=== PATIENT | female | born 1965 | race Caucasian/White ===

== ENCOUNTER 2020-04-24 09:56 | Outpatient (REF) | payer OTHER, SELFPAY ==
[2020-04-24 10:40] LABS: MANUAL DIFF FLAG NO
[2020-04-24 10:56] LABS: Basophils Percent Auto 0.3 % (0-2); Eosinophils Absolute Auto 0.1 X10*3/uL (0.0-0.4); Eosinophils Percent Auto 1.7 % (0-4); Hematocrit 48.4 % (37-47); Hemoglobin 16.1 g/dl (12.0-16.0); Imm Gran Abs Auto 0.01 X10*3/uL (0.00-0.03); Imm Gran Pct Auto 0.2 % (0.0-0.4); Lymphocytes Absolute Auto 1.4 X10*3/uL (1.2-4.9); Lymphocytes Percent Auto 23.5 % (20-40); Mean Corpuscular HGB Conc 33.3 g/dl (31.0-35.0); Mean Corpuscular Hemoglobin 33.1 pg (27.0-33.0); Mean Corpuscular Volume 99.4 fL (80-98); Mean Platelet Volume 9.7 fL (9.4-12.3); Monocytes Absolute Auto 0.8 X10*3/uL (0.1-1.2); Monocytes Percent Auto 12.5 % (2-11); Neutrophils Absolute Auto 3.7 X10*3/uL (2.0-8.3); Neutrophils Percent Auto 61.8 % (45-73); Platelet Count 356 X10*3/uL (160-400); Red Blood Count 4.87 X10*6/uL (4.20-5.50); Red Cell Distribution Width 14.1 % (11.0-16.0)
[2020-04-24 11:00] LABS: Alanine Aminotransferase 17 U/L (0-31); Albumin Level 4.5 g/dL (3.5-5.0); Alkaline Phosphatase 88 U/L (39-117); Anion Gap 12 (12-20); Aspartate Amino Transferase 19 U/L (5-31); Bilirubin Total 0.5 mg/dL (0.0-1.0); Blood Urea Nitrogen 12 mg/dL (9-16); Calcium 9.7 mg/dL (8.4-10.2); Carbon Dioxide 26 mmol/L (22-29); Chloride 105 mmol/L (96-108); Cholesterol 257 mg/dL; Estimated Glomerular Filt Rate > 60; Glucose Fasting 101 mg/dL (60-99); HDL Cholesterol 67 mg/dL; LDL Cholesterol Calculated 167 mg/dl; Potassium 4.7 mmol/l (3.3-5.1); Sodium 138 mmol/L (135-145); Total Protein 7.5 g/dL (6.5-8.0); Triglycerides 116 mg/dL
[2020-04-24 11:03] LABS: Glucose Urine UA NEG (NEG); Leukocyte Esterase Urine NEG (NEG); Nitrite Urine NEG (NEG); Urine Blood NEG (NEG); Urine Ketones NEG (NEG); Urine Protein NEG (NEG-TRACE)
[2020-04-24 11:10] LABS: Appearance Urine CLEAR; Color Urine YELLOW
[2020-04-24 11:25] LABS: Free T4 (Free Thyroxine) 1.16 ng/dL (0.71-1.85); Thyroid Stimulating Hormone 0.41 mIU/mL (0.32-4.0); Vitamin D 25-OH Total 38.4 ng/mL (>30)
[2020-04-24 11:41] LABS: Bacteria Urine 1+ /LPF; Mucus Urine 1+ /LPF; RBC Urine 0 /HPF (0); Squamous Epithelial Cell Urine 1+ /LPF; WBC Urine 0 /HPF (0-4)
[2020-04-24 12:23] LABS: Erythrocyte Sedimentation Rate 5 MM/HR (0-20)
[2020-04-26 09:42] LABS: Folate > 20.0 ng/mL (> or = 4.0); Vitamin B12 434 pg/mL (200-900)
== END 2020-04-24 09:57 | disposition home or self-care (01) ==
LOC: HO.LAB 09:56
PROVIDERS: PCP Internal Medicine; Visit Provider Internal Medicine
DX: I10 Essential (primary) hypertension (principal); E78.00 Pure hypercholesterolemia, unspecified; E03.9 Hypothyroidism, unspecified; E53.8 Deficiency of other specified B group vitamins; I73.00 Raynaud's syndrome without gangrene; R76.8 Other specified abnormal immunological findings in serum; E55.9 Vitamin D deficiency, unspecified; F17.200 Nicotine dependence, unspecified, uncomplicated
CPT/HCPCS: 36415; 80053; 80061; 81001; 81003; 82306; 82607; 82746; 84439; 84443; 85025; 85652

== ENCOUNTER 2020-09-25 09:04 | Outpatient (REF) | payer OTHER, SELFPAY ==
[2020-09-25 09:59] LABS: MANUAL DIFF FLAG NO
[2020-09-25 10:23] LABS: Basophils Percent Auto 0.1 % (0-2); Eosinophils Absolute Auto 0.1 X10*3/uL (0.0-0.4); Eosinophils Percent Auto 1.3 % (0-4); Hematocrit 46.2 % (37-47); Hemoglobin 15.1 g/dl (12.0-16.0); Imm Gran Abs Auto 0.01 X10*3/uL (0.00-0.03); Imm Gran Pct Auto 0.1 % (0.0-0.4); Lymphocytes Absolute Auto 1.4 X10*3/uL (1.2-4.9); Lymphocytes Percent Auto 17.9 % (20-40); Mean Corpuscular HGB Conc 32.7 g/dl (31.0-35.0); Mean Corpuscular Hemoglobin 32.4 pg (27.0-33.0); Mean Corpuscular Volume 99.1 fL (80-98); Mean Platelet Volume 9.6 fL (9.4-12.3); Monocytes Absolute Auto 0.9 X10*3/uL (0.1-1.2); Monocytes Percent Auto 11.4 % (2-11); Neutrophils Absolute Auto 5.4 X10*3/uL (2.0-8.3); Neutrophils Percent Auto 69.2 % (45-73); Platelet Count 347 X10*3/uL (160-400); Red Blood Count 4.66 X10*6/uL (4.20-5.50); Red Cell Distribution Width 14.2 % (11.0-16.0); White Blood Count 7.8 X10*3/uL (4.8-10.8)
[2020-09-25 10:53] LABS: Alanine Aminotransferase 18 U/L (0-31); Albumin Level 4.5 g/dL (3.5-5.0); Alkaline Phosphatase 104 U/L (39-117); Anion Gap 12 (12-20); Aspartate Amino Transferase 19 U/L (5-31); Bilirubin Total 0.4 mg/dL (0.0-1.0); Blood Urea Nitrogen 14 mg/dL (9-16); Calcium 9.5 mg/dL (8.4-10.2); Carbon Dioxide 28 mmol/L (22-29); Chloride 104 mmol/L (96-108); Cholesterol 253 mg/dL; Estimated Glomerular Filt Rate > 60; Glucose Fasting 96 mg/dL (60-99); HDL Cholesterol 75 mg/dL; LDL Cholesterol Calculated 165 mg/dl; Potassium 4.5 mmol/L (3.3-5.1); Sodium 139 mmol/L (135-145); Total Protein 7.7 g/dL (6.5-8.0); Triglycerides 66 mg/dL
[2020-09-25 11:11] LABS: Erythrocyte Sedimentation Rate 6 MM/HR (0-20)
[2020-09-27 05:07] LABS: Folate > 20.0 ng/mL (> or = 4.0); Vitamin B12 615 pg/mL (200-900)
== END 2020-09-25 09:05 | disposition home or self-care (01) ==
LOC: HO.LAB 09:04
PROVIDERS: Visit Provider Internal Medicine
DX: E78.5 Hyperlipidemia, unspecified (principal); E11.9 Type 2 diabetes mellitus without complications; I10 Essential (primary) hypertension; I73.00 Raynaud's syndrome without gangrene; E53.8 Deficiency of other specified B group vitamins; E55.9 Vitamin D deficiency, unspecified
CPT/HCPCS: 36415; 80053; 80061; 82306; 82607; 82746; 84443; 85025; 85652

== ENCOUNTER 2021-01-29 09:27 | Outpatient (REF) | payer OTHER, SELFPAY ==
[2021-01-29 10:24] LABS: MANUAL DIFF FLAG NO
[2021-01-29 10:25] LABS: Basophils Percent Auto 0.1 % (0-2); Eosinophils Absolute Auto 0.1 X10*3/uL (0.0-0.4); Eosinophils Percent Auto 1.3 % (0-4); Hematocrit 45.6 % (37-47); Hemoglobin 15.3 g/dl (12.0-16.0); Imm Gran Abs Auto 0.02 X10*3/uL (0.00-0.03); Imm Gran Pct Auto 0.3 % (0.0-0.4); Lymphocytes Absolute Auto 1.5 X10*3/uL (1.2-4.9); Lymphocytes Percent Auto 21.2 % (20-40); Mean Corpuscular HGB Conc 33.6 g/dl (31.0-35.0); Mean Corpuscular Hemoglobin 32.8 pg (27.0-33.0); Mean Corpuscular Volume 97.9 fL (80-98); Mean Platelet Volume 9.6 fL (9.4-12.3); Monocytes Absolute Auto 0.8 X10*3/uL (0.1-1.2); Monocytes Percent Auto 11.9 % (2-11); Neutrophils Absolute Auto 4.6 X10*3/uL (2.0-8.3); Neutrophils Percent Auto 65.2 % (45-73); Platelet Count 353 X10*3/uL (160-400); Red Blood Count 4.66 X10*6/uL (4.20-5.50); Red Cell Distribution Width 14.5 % (11.0-16.0); White Blood Count 7.1 X10*3/uL (4.8-10.8)
[2021-01-29 10:48] LABS: Alanine Aminotransferase 20 U/L (0-31); Albumin Level 4.5 g/dL (3.5-5.0); Alkaline Phosphatase 102 U/L (39-117); Anion Gap 16 (12-20); Aspartate Amino Transferase 21 U/L (5-31); Bilirubin Total 0.6 mg/dL (0.0-1.0); Blood Urea Nitrogen 9 mg/dL (9-16); Calcium 10.1 mg/dL (8.4-10.2); Carbon Dioxide 26 mmol/L (22-29); Chloride 104 mmol/L (96-108); Cholesterol 249 mg/dL; Estimated Glomerular Filt Rate > 60; Glucose Fasting 96 mg/dL (60-99); HDL Cholesterol 66 mg/dL; LDL Cholesterol Calculated 165 mg/dl; Potassium 4.9 mmol/L (3.3-5.1); Sodium 141 mmol/L (135-145); Total Protein 7.7 g/dL (6.5-8.0); Triglycerides 91 mg/dL
[2021-01-29 11:10] LABS: Free T4 (Free Thyroxine) 1.02 ng/dL (0.71-1.85)
== END 2021-01-29 09:28 | disposition home or self-care (01) ==
LOC: HO.LAB 09:27
PROVIDERS: PCP Internal Medicine; Visit Provider Internal Medicine
DX: E53.8 Deficiency of other specified B group vitamins (principal); I10 Essential (primary) hypertension; E78.00 Pure hypercholesterolemia, unspecified; I73.00 Raynaud's syndrome without gangrene; E03.9 Hypothyroidism, unspecified
CPT/HCPCS: 36415; 80053; 80061; 84439; 84443; 85025

== ENCOUNTER 2021-06-18 09:31 | Outpatient (REF) | payer OTHER, SELFPAY ==
[2021-06-18 09:52] LABS: MANUAL DIFF FLAG NO
[2021-06-18 10:35] LABS: Basophils Percent Auto 0.1 % (0-2); Eosinophils Absolute Auto 0.1 X10*3/uL (0.0-0.4); Eosinophils Percent Auto 1.3 % (0-4); Hematocrit 46.8 % (37.0-47.0); Hemoglobin 15.7 g/dl (12.0-16.0); Imm Gran Abs Auto 0.02 X10*3/uL (0.00-0.03); Imm Gran Pct Auto 0.3 % (0.0-0.4); Lymphocytes Absolute Auto 1.4 X10*3/uL (1.2-4.9); Lymphocytes Percent Auto 17.9 % (20-40); Mean Corpuscular HGB Conc 33.5 g/dl (31.0-35.0); Mean Corpuscular Hemoglobin 32.9 pg (27.0-33.0); Mean Corpuscular Volume 98.1 fL (80.0-98.0); Mean Platelet Volume 9.7 fL (9.4-12.3); Monocytes Absolute Auto 0.9 X10*3/uL (0.1-1.2); Monocytes Percent Auto 11.1 % (2-11); Neutrophils Absolute Auto 5.3 x10*3/uL (2.0-8.3); Neutrophils Percent Auto 69.3 % (45-73); Platelet Count 375 X10*3/uL (160-400); Red Blood Count 4.77 X10*6/uL (4.20-5.50); Red Cell Distribution Width 14.2 % (11.0-16.0); White Blood Count 7.7 X10*3/uL (4.8-10.8)
[2021-06-18 10:41] LABS: Appearance Urine HAZY; Color Urine YELLOW; Glucose Urine UA NEG (NEG); Leukocyte Esterase Urine 1+ (NEG); Nitrite Urine NEG (NEG); UACC Culture Trigger YES; Urine Blood NEG (NEG); Urine Ketones NEG (NEG); Urine Protein NEG (NEG-TRACE)
[2021-06-18 10:52] LABS: Mucus Urine 3+ /LPF; Squamous Epithelial Cell Urine 2+ /LPF
[2021-06-18 10:53] LABS: Bacteria Urine 2+ /LPF; RBC Urine 0 /HPF (0)
[2021-06-18 10:55] LABS: Alanine Aminotransferase 21 U/L (0-31); Albumin Level 4.4 g/dL (3.5-5.0); Alkaline Phosphatase 107 U/L (39-117); Anion Gap 13 (12-20); Aspartate Amino Transferase 22 U/L (5-31); Bilirubin Total 0.6 mg/dL (0.0-1.0); Blood Urea Nitrogen 10 mg/dL (9-16); Calcium 9.8 mg/dL (8.4-10.2); Carbon Dioxide 26 mmol/L (22-29); Chloride 104 mmol/L (96-108); Cholesterol 254 mg/dL; Estimated Glomerular Filt Rate > 60; Glucose Fasting 101 mg/dL (60-99); HDL Cholesterol 64 mg/dL; LDL Cholesterol Calculated 163 mg/dl; Potassium 4.3 mmol/L (3.3-5.1); Sodium 139 mmol/L (135-145); Total Protein 7.5 g/dL (6.5-8.0); Triglycerides 139 mg/dL
[2021-06-18 11:19] LABS: Free T4 (Free Thyroxine) 1.04 ng/dL (0.71-1.85); Thyroid Stimulating Hormone 0.91 uIU/mL (0.32-4.0); Vitamin D 25-OH Total 36.7 ng/mL (>30)
[2021-06-20 09:01] LABS: Folate > 20.0 ng/mL (> or = 4.0); Vitamin B12 781 pg/mL (200-900)
== END 2021-06-18 09:32 | disposition home or self-care (01) ==
LOC: HO.LAB 09:31
PROVIDERS: PCP Internal Medicine; Visit Provider Internal Medicine
DX: E53.8 Deficiency of other specified B group vitamins (principal); E78.00 Pure hypercholesterolemia, unspecified; I10 Essential (primary) hypertension; E03.9 Hypothyroidism, unspecified; E55.9 Vitamin D deficiency, unspecified; F17.200 Nicotine dependence, unspecified, uncomplicated; I73.00 Raynaud's syndrome without gangrene
CPT/HCPCS: 36415; 80053; 80061; 81001; 82306; 82607; 82746; 84439; 84443; 85025; 87086

== ENCOUNTER 2021-11-05 09:32 | Outpatient (REF) | payer OTHER, SELFPAY ==
[2021-11-05 09:40] LABS: MANUAL DIFF FLAG NO
[2021-11-05 10:04] LABS: Basophils Percent Auto 0.3 % (0-2); Eosinophils Absolute Auto 0.1 X10*3/uL (0.0-0.4); Eosinophils Percent Auto 1.9 % (0-4); Hematocrit 46.7 % (37.0-47.0); Hemoglobin 15.7 g/dl (12.0-16.0); Imm Gran Abs Auto 0.01 X10*3/uL (0.00-0.03); Imm Gran Pct Auto 0.1 % (0.0-0.4); Lymphocytes Absolute Auto 1.8 X10*3/uL (1.2-4.9); Lymphocytes Percent Auto 26.5 % (20-40); Mean Corpuscular HGB Conc 33.6 g/dl (31.0-35.0); Mean Corpuscular Hemoglobin 32.6 pg (27.0-33.0); Mean Corpuscular Volume 96.9 fL (80.0-98.0); Mean Platelet Volume 9.3 fL (9.4-12.3); Monocytes Percent Auto 13.7 % (2-11); Neutrophils Percent Auto 57.5 % (45-73); Platelet Count 408 X10*3/uL (160-400); Red Blood Count 4.82 X10*6/uL (4.20-5.50); White Blood Count 6.9 X10*3/uL (4.8-10.8)
[2021-11-05 10:19] LABS: Alanine Aminotransferase 19 U/L (0-31); Albumin Level 4.3 g/dL (3.5-5.0); Alkaline Phosphatase 102 U/L (39-117); Anion Gap 17 (12-20); Aspartate Amino Transferase 19 U/L (5-31); Bilirubin Total 0.7 mg/dL (0.0-1.0); Blood Urea Nitrogen 10 mg/dL (9-16); Calcium 10.1 mg/dL (8.4-10.2); Carbon Dioxide 25 mmol/L (22-29); Chloride 103 mmol/L (96-108); Cholesterol 262 mg/dL; Estimated Glomerular Filt Rate > 60; Glucose Fasting 101 mg/dL (60-99); HDL Cholesterol 64 mg/dL; LDL Cholesterol Calculated 169 mg/dl; Potassium 4.8 mmol/L (3.3-5.1); Sodium 140 mmol/L (135-145); Total Protein 7.5 g/dL (6.5-8.0); Triglycerides 149 mg/dL
[2021-11-05 10:43] LABS: TSH reflex Free T4 0.51 uIU/mL (0.32-4.0)
[2021-11-05 11:16] LABS: Appearance Urine HAZY; Color Urine YELLOW; Glucose Urine UA NEG (NEG); Leukocyte Esterase Urine 1+ (NEG); Nitrite Urine NEG (NEG); PH 5.5 (5.0-8.0); Specific Gravity - Urine 1.025 (1.005-1.025); Urine Blood NEG (NEG); Urine Ketones NEG (NEG); Urine Protein NEG (NEG-TRACE)
[2021-11-05 11:28] LABS: RBC Urine 0-2 /HPF (0)
[2021-11-05 11:29] LABS: Bacteria Urine 2+ /LPF; Squamous Epithelial Cell Urine 1+ /LPF
== END 2021-11-05 09:33 | disposition home or self-care (01) ==
LOC: HO.LAB 09:32
PROVIDERS: PCP Internal Medicine; Visit Provider Internal Medicine
DX: E78.00 Pure hypercholesterolemia, unspecified (principal); I10 Essential (primary) hypertension
CPT/HCPCS: 36415; 80053; 80061; 81001; 82550; 84443; 85025

== ENCOUNTER 2022-03-18 09:20 | Outpatient (REF) | payer OTHER, SELFPAY ==
[2022-03-18 09:35] LABS: MANUAL DIFF FLAG NO
[2022-03-18 10:00] LABS: Basophils Percent Auto 0.1 % (0-2); Eosinophils Absolute Auto 0.2 X10*3/uL (0.0-0.4); Hematocrit 47.1 % (37.0-47.0); Hemoglobin 15.9 g/dl (12.0-16.0); Imm Gran Abs Auto 0.03 X10*3/uL (0.00-0.03); Imm Gran Pct Auto 0.3 % (0.0-0.4); Lymphocytes Absolute Auto 1.4 X10*3/uL (1.2-4.9); Lymphocytes Percent Auto 16.6 % (20-40); Mean Corpuscular HGB Conc 33.8 g/dl (31.0-35.0); Mean Corpuscular Hemoglobin 32.9 pg (27.0-33.0); Mean Corpuscular Volume 97.5 fL (80.0-98.0); Mean Platelet Volume 9.3 fL (9.4-12.3); Monocytes Absolute Auto 0.8 X10*3/uL (0.1-1.2); Monocytes Percent Auto 9.3 % (2-11); Neutrophils Absolute Auto 6.2 x10*3/uL (2.0-8.3); Neutrophils Percent Auto 71.7 % (45-73); Platelet Count 353 X10*3/uL (160-400); Red Blood Count 4.83 X10*6/uL (4.20-5.50); Red Cell Distribution Width 14.3 % (11.0-16.0); White Blood Count 8.6 X10*3/uL (4.8-10.8)
[2022-03-18 10:25] LABS: Alanine Aminotransferase 27 U/L (0-31); Albumin Level 4.7 g/dL (3.5-5.0); Alkaline Phosphatase 107 U/L (39-117); Anion Gap 17 (12-20); Aspartate Amino Transferase 28 U/L (5-31); Bilirubin Total 0.9 mg/dL (0.0-1.0); Blood Urea Nitrogen 10 mg/dL (9-16); Calcium 9.9 mg/dL (8.4-10.2); Carbon Dioxide 26 mmol/L (22-29); Chloride 102 mmol/L (96-108); Cholesterol 224 mg/dL; Estimated Glomerular Filt Rate > 60; Glucose Fasting 103 mg/dL (60-99); HDL Cholesterol 78 mg/dL; LDL Cholesterol Calculated 115 mg/dl; Potassium 4.1 mmol/L (3.3-5.1); Sodium 141 mmol/L (135-145); Total Protein 8.1 g/dL (6.5-8.0); Triglycerides 159 mg/dL
[2022-03-18 10:48] LABS: Free T4 (Free Thyroxine) 1.15 ng/dL (0.71-1.85); Thyroid Stimulating Hormone 0.57 uIU/mL (0.32-4.0)
[2022-03-18 11:08] LABS: Appearance Urine Clear; Color Urine Dark Yellow; Glucose Urine UA Negative (Negative); Leukocyte Esterase Urine Moderate (2+) (Negative); Nitrite Urine Negative (Negative); PH 6.5 (5.0-8.0); Specific Gravity - Urine 1.015 (1.005-1.025); Urine Blood Negative (Negative); Urine Ketones Negative (Negative); Urine Protein Negative (Neg-Trace)
[2022-03-18 11:22] LABS: Bacteria Urine Trace (None Seen); Hyaline Casts Urine 0-2 /LPF (0-2); RBC Urine 0-2 /HPF (0-2); WBC Urine 0-5 /HPF (0-5)
== END 2022-03-18 09:21 | disposition home or self-care (01) ==
LOC: HO.LAB 09:20
PROVIDERS: PCP Internal Medicine; Visit Provider Internal Medicine
DX: E03.9 Hypothyroidism, unspecified (principal); E78.00 Pure hypercholesterolemia, unspecified; I10 Essential (primary) hypertension
CPT/HCPCS: 36415; 80053; 80061; 81001; 81003; 84439; 84443; 85025

== ENCOUNTER 2022-06-24 09:38 | Outpatient (REF) | payer OTHER, SELFPAY ==
[2022-06-24 09:51] LABS: MANUAL DIFF FLAG NO
[2022-06-24 10:27] LABS: Basophils Percent Auto 0.2 % (0-2); Eosinophils Absolute Auto 0.1 X10*3/uL (0.0-0.4); Eosinophils Percent Auto 1.7 % (0-4); Hematocrit 44.3 % (37.0-47.0); Hemoglobin 14.9 g/dl (12.0-16.0); Imm Gran Abs Auto 0.02 X10*3/uL (0.00-0.03); Imm Gran Pct Auto 0.2 % (0.0-0.4); Lymphocytes Absolute Auto 1.8 X10*3/uL (1.2-4.9); Lymphocytes Percent Auto 21.5 % (20-40); Mean Corpuscular HGB Conc 33.6 g/dl (31.0-35.0); Mean Corpuscular Hemoglobin 32.9 pg (27.0-33.0); Mean Corpuscular Volume 97.8 fL (80.0-98.0); Mean Platelet Volume 9.4 fL (9.4-12.3); Monocytes Percent Auto 11.8 % (2-11); Neutrophils Absolute Auto 5.3 x10*3/uL (2.0-8.3); Neutrophils Percent Auto 64.6 % (45-73); Platelet Count 353 X10*3/uL (160-400); Red Blood Count 4.53 X10*6/uL (4.20-5.50); Red Cell Distribution Width 14.4 % (11.0-16.0); White Blood Count 8.2 X10*3/uL (4.8-10.8)
[2022-06-24 10:37] LABS: Appearance Urine Clear; Color Urine Yellow; Glucose Urine UA Negative (Negative); Leukocyte Esterase Urine Moderate (2+) (Negative); Nitrite Urine Negative (Negative); PH 5.5 (5.0-9.0); UMIC TRIGGER UACC YES; Urine Blood Negative (Negative); Urine Ketones Negative (Negative); Urine Protein Negative (Neg-Trace)
[2022-06-24 10:39] LABS: Bacteria Urine 1+ (None Seen); Hyaline Casts Urine 0-2 /LPF (0-2); RBC Urine 0-2 /HPF (0-2); UACC Culture Trigger YES; WBC Urine 21-50 /HPF (0-5)
[2022-06-24 11:53] LABS: Alanine Aminotransferase 28 U/L (0-31); Albumin Level 4.5 g/dL (3.5-5.0); Alkaline Phosphatase 108 U/L (39-117); Anion Gap 15 (12-20); Aspartate Amino Transferase 26 U/L (5-31); Blood Urea Nitrogen 11 mg/dL (9-16); Calcium 9.7 mg/dL (8.4-10.2); Carbon Dioxide 26 mmol/L (22-29); Chloride 104 mmol/L (96-108); Cholesterol 194 mg/dL; Estimated Glomerular Filt Rate > 60; Free T4 (Free Thyroxine) 0.98 ng/dL (0.71-1.85); Glucose Fasting 99 mg/dL (60-99); HDL Cholesterol 74 mg/dL; LDL Cholesterol Calculated 102 mg/dl; Potassium 4.5 mmol/L (3.3-5.1); Sodium 140 mmol/L (135-145); Total Protein 7.5 g/dL (6.5-8.0); Triglycerides 90 mg/dL
[2022-06-24 12:13] LABS: Bilirubin Total 0.4 mg/dL (0.0-1.0)
[2022-06-24 15:01] LABS: Vitamin D 25-OH Total 36.3 ng/mL (>30)
== END 2022-06-24 09:39 | disposition home or self-care (01) ==
LOC: HO.LAB 09:38
PROVIDERS: PCP Internal Medicine; Visit Provider Internal Medicine
DX: E78.00 Pure hypercholesterolemia, unspecified (principal); E03.9 Hypothyroidism, unspecified; E55.9 Vitamin D deficiency, unspecified; I10 Essential (primary) hypertension
CPT/HCPCS: 36415; 80053; 80061; 81001; 82306; 84439; 84443; 85025; 87086

== ENCOUNTER → 2022-10-05 14:46 | Outpatient (BNVA) | payer OTHER, SELFPAY | PROVIDERS: PCP Internal Medicine; Visit Provider Student in an Organized Health Care Education/Training Program | DX: I73.00 Raynaud's syndrome without gangrene (principal); R68.3 Clubbing of fingers; F17.210 Nicotine dependence, cigarettes, uncomplicated | CPT/HCPCS: 99202 ==

== ENCOUNTER 2022-10-05 15:56 | Outpatient (REF) | payer OTHER, SELFPAY ==
[2022-10-05 16:21] LABS: MANUAL DIFF FLAG NO
[2022-10-05 17:57] LABS: Basophils Percent Auto 0.2 % (0-2); Eosinophils Absolute Auto 0.1 X10*3/uL (0.0-0.4); Eosinophils Percent Auto 1.2 % (0-4); Hematocrit 39.8 % (37.0-47.0); Hemoglobin 13.4 g/dl (12.0-16.0); Imm Gran Abs Auto 0.03 X10*3/uL (0.00-0.03); Imm Gran Pct Auto 0.3 % (0.0-0.4); Mean Corpuscular HGB Conc 33.7 g/dl (31.0-35.0); Mean Corpuscular Hemoglobin 32.1 pg (27.0-33.0); Mean Corpuscular Volume 95.2 fL (80.0-98.0); Monocytes Absolute Auto 1.1 X10*3/uL (0.1-1.2); Monocytes Percent Auto 9.1 % (2-11); Neutrophils Absolute Auto 8.6 x10*3/uL (2.0-8.3); Neutrophils Percent Auto 72.2 % (45-73); Platelet Count 399 X10*3/uL (160-400); Red Blood Count 4.18 X10*6/uL (4.20-5.50); Red Cell Distribution Width 13.7 % (11.0-16.0); White Blood Count 11.9 X10*3/uL (4.8-10.8)
[2022-10-05 18:10] LABS: Alanine Aminotransferase 16 U/L (0-31); Albumin Level 4.2 g/dL (3.5-5.0); Alkaline Phosphatase 88 U/L (39-117); Anion Gap 14 (12-20); Aspartate Amino Transferase 16 U/L (5-31); Bilirubin Total 0.3 mg/dL (0.0-1.0); Blood Urea Nitrogen 9 mg/dL (9-16); C Reactive Protein 0.35 mg/dL (< or = 0.50); Calcium 9.3 mg/dL (8.4-10.2); Carbon Dioxide 24 mmol/L (22-29); Chloride 106 mmol/L (96-108); Estimated Glomerular Filt Rate > 60; Glucose Random 101 mg/dL (60-115); Potassium 4.2 mmol/L (3.3-5.1); Rheumatoid Factor < 13.0 IU/mL (<15.0); Sodium 140 mmol/L (135-145); Total Protein 7.1 g/dL (6.5-8.0)
[2022-10-05 18:24] LABS: Erythrocyte Sedimentation Rate 16 MM/HR (0-20)
[2022-10-07 03:33] LABS: Thyroid Peroxidase Antibodies <1 IU/mL (<9)
[2022-10-09 11:14] LABS: Complement C3 141 mg/dL (83-193)
[2022-10-09 12:49] LABS: Thyroglobulin Antibodies 1 IU/mL (< or = 1)
[2022-10-09 13:58] LABS: IgA 299 mg/dL (47-310); IgG 1242 mg/dL (600-1640); IgM 107 mg/dL (50-300)
[2022-10-09 16:24] LABS: Cyclic Citrullinated Peptide <16 UNITS
[2022-10-10 12:44] LABS: Anti DNA DS Antibody 2 IU/mL; Antibody to SS-A Antigen <1.0 NEG AI (<1.0 NEG); Antibody to SS-B Antigen <1.0 NEG AI (<1.0 NEG); SM/Ribonucleoprotein Ab <1.0 NEG AI (<1.0 NEG); Smith Protein <1.0 NEG AI (<1.0 NEG)
[2022-10-10 18:28] LABS: Cardiolipin IgG Ab <2.0 GPL-U/mL; Cardiolipin IgM Ab 2.1 MPL-U/mL
[2022-10-11 00:58] LABS: Prot Elec - Albumin 4.3 g/dL (3.8-4.8); Prot Elec - Alpha1 0.4 g/dL (0.2-0.3); Prot Elec - Beta 1 0.5 g/dL (0.4-0.6); Prot Elec - Beta 2 0.4 g/dL (0.2-0.5); Prot Elec - Gamma 1.1 g/dL (0.8-1.7); Prot Elec - Total Protein 7.6 g/dL (6.1-8.1)
[2022-10-11 13:04] LABS: DNAds, Crithidia Antibody Negative (Negative)
[2022-10-11 22:34] LABS: PTT (LAC) Screen 34 sec (<=40)
[2022-10-13 03:04] LABS: Beta-2 Glycoprotein IgA <2.0 U/mL (<20.0); Beta-2 Glycoprotein IgG <2.0 U/mL (<20.0); Beta-2 Glycoprotein IgM 2.3 U/mL (<20.0)
[2022-10-13 12:19] LABS: Centromere Protein A Ab <11 SI (<11); Centromere Protein B Ab <11 SI (<11); Fibrillarin Ab <11 SI (<11); PM SCL 100 Ab 11 SI (<11); PM SCL 75 Ab <11 SI (<11); RNA Polymerase III RP11 Ab <11 SI (<11); RNA Polymerase III RP155 Ab <11 SI (<11); SCL-70 Extractable Nuclear Ab <11 SI (<11); Th-To Ab <11 SI (<11); U1 SNRNP RNP 70KD <11 SI (<11); U1 SNRNP RNP A <11 SI (<11); U1 SNRNP RNP C <11 SI (<11)
== END 2022-10-05 15:57 | disposition home or self-care (01) ==
LOC: HO.LAB 15:56
PROVIDERS: PCP Internal Medicine; Visit Provider Student in an Organized Health Care Education/Training Program
DX: M32.9 Systemic lupus erythematosus, unspecified (principal); I73.00 Raynaud's syndrome without gangrene; M25.541 Pain in joints of right hand; D68.61 Antiphospholipid syndrome; E03.9 Hypothyroidism, unspecified; M34.9 Systemic sclerosis, unspecified; R68.3 Clubbing of fingers; F17.210 Nicotine dependence, cigarettes, uncomplicated; Z79.899 Other long term (current) drug therapy
CPT/HCPCS: 36415; 80053; 82784; 84165; 84182; 85025; 85597; 85613; 85652; 85730; 86140; 86146; 86147; 86160; 86200; 86225; 86235; 86255; 86334; 86376; 86431; 86800

== ENCOUNTER 2022-10-28 07:25 | Outpatient (REF) | payer OTHER, SELFPAY ==
--- NOTE | ~2022-10-28 | XR_ITS ---
EXAMINATION: Lumbar spine and sacrum and coccyx x-rays CLINICAL INFORMATION: Pain COMPARISON: Lumbar spine x-ray December 2013 TECHNIQUE: 3 views of the lumbar spine and 3 views of the sacrum and coccyx FINDINGS: Lumbar spine: Bone alignment is normal. No fracture or dislocation. There is degenerative disc disease and spondylosis at L4-L5. There is lower lumbar spine facet arthritis. There is evidence of atherosclerotic disease. Sacrum and coccyx: No fracture, dislocation or bone lesion. Normal-appearing sacroiliac joints. Normal soft tissues. XR/XR lumbar spine 2-3V IMPRESSION: LUMBAR SPINE: Degenerative disc disease and spondylosis at L4-L5 and lower lumbar spine facet arthritis. SACRUM AND COCCYX: Unremarkable exam.
--- NOTE | ~2022-10-28 | XR_ITS ---
EXAMINATION: Lumbar spine and sacrum and coccyx x-rays CLINICAL INFORMATION: Pain COMPARISON: Lumbar spine x-ray December 2013 TECHNIQUE: 3 views of the lumbar spine and 3 views of the sacrum and coccyx FINDINGS: Lumbar spine: Bone alignment is normal. No fracture or dislocation. There is degenerative disc disease and spondylosis at L4-L5. There is lower lumbar spine facet arthritis. There is evidence of atherosclerotic disease. Sacrum and coccyx: No fracture, dislocation or bone lesion. Normal-appearing sacroiliac joints. Normal soft tissues. XR/XR sacrum coccyx min 2V IMPRESSION: LUMBAR SPINE: Degenerative disc disease and spondylosis at L4-L5 and lower lumbar spine facet arthritis. SACRUM AND COCCYX: Unremarkable exam.
--- NOTE | ~2022-10-28 | XR_ITS ---
EXAMINATION: XR CHEST CLINICAL INFORMATION: Wheezing COMPARISON: Previous chest x-ray July 2007 TECHNIQUE: 2 views of the chest were obtained. FINDINGS: The cardiac and mediastinal contours are normal. The lungs are well inflated. There are increased central lung markings suggestive of bronchial wall thickening. The lungs are otherwise clear. No evidence of pneumonia. No pleural effusion or pneumothorax. Bony structures are unremarkable. XR/XR chest 2V IMPRESSION: Well-inflated lungs. Bronchial wall thickening. No evidence of pneumonia.
[2022-10-28 07:35] LABS: MANUAL DIFF FLAG NO
[2022-10-28 08:03] LABS: Basophils Percent Auto 0.1 % (0-2); Eosinophils Absolute Auto 0.2 X10*3/uL (0.0-0.4); Eosinophils Percent Auto 2.3 % (0-4); Hematocrit 45.6 % (37.0-47.0); Hemoglobin 15.3 g/dl (12.0-16.0); Imm Gran Abs Auto 0.02 X10*3/uL (0.00-0.03); Imm Gran Pct Auto 0.2 % (0.0-0.4); Lymphocytes Absolute Auto 1.6 X10*3/uL (1.2-4.9); Mean Corpuscular HGB Conc 33.6 g/dl (31.0-35.0); Mean Corpuscular Hemoglobin 31.5 pg (27.0-33.0); Mean Platelet Volume 9.3 fL (9.4-12.3); Monocytes Absolute Auto 1.1 X10*3/uL (0.1-1.2); Monocytes Percent Auto 13.6 % (2-11); Neutrophils Absolute Auto 5.4 x10*3/uL (2.0-8.3); Neutrophils Percent Auto 64.8 % (45-73); Platelet Count 421 X10*3/uL (160-400); Red Blood Count 4.85 X10*6/uL (4.20-5.50); Red Cell Distribution Width 14.3 % (11.0-16.0); White Blood Count 8.4 X10*3/uL (4.8-10.8)
[2022-10-28 08:49] LABS: Erythrocyte Sedimentation Rate 13 MM/HR (0-20)
[2022-10-28 09:09] LABS: Alanine Aminotransferase 18 U/L (0-31); Albumin Level 4.3 g/dL (3.5-5.0); Alkaline Phosphatase 99 U/L (39-117); Anion Gap 14 (12-20); Aspartate Amino Transferase 18 U/L (5-31); Bilirubin Total 0.3 mg/dL (0.0-1.0); Blood Urea Nitrogen 8 mg/dL (9-16); Calcium 9.8 mg/dL (8.4-10.2); Carbon Dioxide 26 mmol/L (22-29); Chloride 107 mmol/L (96-108); Cholesterol 172 mg/dL; Estimated Glomerular Filt Rate > 60; Glucose Fasting 104 mg/dL (60-99); HDL Cholesterol 58 mg/dL; LDL Cholesterol Calculated 101 mg/dl; Sodium 142 mmol/L (135-145); Total Protein 7.2 g/dL (6.5-8.0); Triglycerides 66 mg/dL
[2022-10-28 09:27] LABS: Free T4 (Free Thyroxine) 1.06 ng/dL (0.71-1.85); Thyroid Stimulating Hormone 0.67 uIU/mL (0.32-4.0); Vitamin D 25-OH Total 38.2 ng/mL (>30)
[2022-10-28 09:28] LABS: Appearance Urine Clear; Color Urine Yellow; Glucose Urine UA Negative (Negative); Leukocyte Esterase Urine Negative (Negative); Nitrite Urine Negative (Negative); PH 7.5 (5.0-9.0); Urine Blood Negative (Negative); Urine Ketones Negative (Negative); Urine Protein Negative (Neg-Trace)
== END 2022-10-28 07:26 | disposition home or self-care (01) ==
LOC: HO.LAB 07:25
PROVIDERS: Absent Provider Student in an Organized Health Care Education/Training Program; PCP Internal Medicine; Visit Provider Internal Medicine
DX: M79.7 Fibromyalgia (principal); E03.9 Hypothyroidism, unspecified; E78.00 Pure hypercholesterolemia, unspecified; R30.0 Dysuria; E55.9 Vitamin D deficiency, unspecified; M53.3 Sacrococcygeal disorders, not elsewhere classified; M54.50 Low back pain, unspecified; I10 Essential (primary) hypertension
CPT/HCPCS: 36415; 71046; 72100; 72220; 80053; 80061; 81003; 82306; 84439; 84443; 85025; 85652

== ENCOUNTER → 2022-11-29 07:25 | Outpatient (BNVA) | payer OTHER, SELFPAY | PROVIDERS: PCP Internal Medicine; Visit Provider Student in an Organized Health Care Education/Training Program | DX: I73.00 Raynaud's syndrome without gangrene (principal); R68.3 Clubbing of fingers | CPT/HCPCS: 99212 ==

== ENCOUNTER 2023-01-30 09:56 | Outpatient (AMB) | payer OTHER, SELFPAY ==
--- NOTE | 2023-01-30 09:59 | MHC.PC.OV ---
Vital Signs 01/30/23 10:00 Height 5 ft 3 in Weight 130 lb 4 oz BMI 23.1 BP 102/60 Blood Pressure Location Rt brachial Position Sitting Pulse 99 Pulse Source Pulse Oximeter Pulse Oximetry (%) 96 Oxygen Delivery Method Room Air Intake Visit Reasons: Intestinal Infection Intake Note: pt is here for possible intestinal infection, states lots of pain and bloating in abdominal area. states shes loosing weight Concrete Worker Required: No Allergies ampicillin [Ampicillin] Allergy (Mild, Verified 01/30/23 10:39) DIARRHEA atorvastatin Allergy (Mild, Verified 01/30/23 10:39) Nausea Codeine Sulfate Allergy (Unknown, Verified 01/30/23 10:39) unknown codeine [Codeine] Adverse Reaction (Mild, Verified 01/30/23 10:39) NAUSEA & VOMITING prednisone Adverse Reaction (Unknown, Verified 01/30/23 10:39) myalgia Penicillin V Potassium Allergy (Unknown, Uncoded 10/31/22 17:19) unknown Medication List - Last Reconciled 01/30/23 by Damian Bazan PA-C acetaminophen 325 mg PO QID PRN amlodipine 20 mg (2 x 10 mg) PO DAILY cholecalciferol (vitamin D3) 25 mcg PO DAILY 90 days cyanocobalamin (vitamin B-12) 500 mcg PO DAILY fluoxetine 20 mg PO DAILY levothyroxine 100 mcg PO DAILY loratadine 10 mg PO DAILY multivitamin 1 tab PO DAILY 90 days nitroglycerin 2% 0.5 inches transdermal Q6H rosuvastatin 5 mg PO DAILY 90 days silver sulfadiazine 1% (Silvadene) 1 appl topical DAILY PRN Tobacco use date assessed: 01/30/23 Dental Screening Dental Screen Date: 01/30/23 Did you have a dental visit in the last 12 months?: Yes Was dental information given to patient?: Patient has dentist HPI Intestinal Infection HPI Details Patient is a 57-year-old female here today for problem visit. This is the 1st time I am meeting this 57-year-old female with a past history significant for hypertension, hyperlipidemia, Raynaud's disease, hypothyroidism. anxiety. Reports having abdominal bloating and pain over the last week. Has had UTIs in the past with urinary burning and lower pelvic bloating and similar fashion. Does report having urine frequency. Has tried pepto and stool softener which helped produce bowel movement though did not reduce her pelvic pain. No fevers or chills, vomiting or diarrhea reported. Of note she does also have some right lower quadrant abdominal pain with some concerns of appendix etiology. Will send for ultrasound appendix to evaluate for early appendicitis [facility] Medical History (Reviewed 01/30/23 @ 10:00 by Mack Pena [facility]) Allergic rhinitis Anxiety Benign essential hypertension Essential hypertension Hyperlipidemia Hypothyroidism Insomnia Left hand pain Lumbar degenerative disc disease Pure hypercholesterolemia Raynaud's disease Smoker Vitamin B12 deficiency Vitamin D deficiency Surgical History History of cholecystectomy History of left knee surgery Family History Father No problems noted. Mother No problems noted. Sister Rheumatoid arthritis Sister Diabetes Brother No problems noted. Brother No problems noted. Brother No problems noted. 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 Gildardo Yeung, Francy Nuñez, Heath Patricio and colleagues, with an educational billy from [employer]. Review of Systems Const Denies headache(s) Eyes Denies loss of vision ENT Denies vertigo, Denies dizziness, Denies headache(s) and Denies sore throat Card Denies chest pain, Denies leg edema and Denies lightheadedness Resp Denies cough, Denies hemoptysis and Denies wheezing GI Reports abdominal pain, Denies melena, Reports bloating, Denies constipation, Denies diarrhea and Denies vomiting Denies urinary frequency, Reports nocturia, Denies dysuria, Reports urinary hesitancy and Denies urinary urgency Musc Denies arthralgias, Denies joint swelling, Denies numbness and Denies tingling Neuro Denies Abnormal speech present, Denies behavioral changes, Denies vertigo, Denies dizziness, Denies headache(s), Denies loss of vision, Denies memory loss, Denies numbness and Denies tingling Psych Denies anxiety, Denies behavioral changes, Denies depression, Denies memory loss and Denies panic attacks Gianluca/Lymph Denies easy bleeding and Denies easy bruising Aller/Immun Denies wheezing Physical exam (Primary Care) Vital Signs: Last Vital Signs Pulse 99 01/30/23 10:00 BP 102/60 01/30/23 10:00 Pulse Ox 96 01/30/23 10:00 Oxygen Delivery Method Room Air 01/30/23 10:00 BMI result Body Mass Index 23.1 Tobacco/Smoking Status: Tobacco use Status Tobacco use date assessed 01/30/23 01/30/23 10:04 Patient Tobacco Use Status Former Tobacco user 01/30/23 10:04 e-Cigarette/Vaping Use Never Used 01/30/23 10:04 Thrive Assessment: Date of Thrive Assessment Date Thrive assessed 10/31/22 01/30/23 10:04 Const General: healthy appearing, no acute distress, alert and awake Nutritional Appearance: well nourished Orientation/consciousness: oriented to person, oriented to place and oriented to time HENMT Ears: TM's normal bilaterally General nose exam: Normal nasal mucous membranes and turbinates present Eyes Conjunctivae: conjunctivae normal Sclerae: sclerae normal Pupils: Equal, round and reactive pupils present Neck Neck: Yes no lymphadenopathy and Yes no JVD Thyroid: Thyroid normal Carotids: no bruits Resp Effort & Inspection: normal respiratory effort and not tachypneic Auscultation: no crackles, no rales, no rhonchi and no wheezes Cardio Rate: regular rate Rhythm: regular rhythm Heart sounds: no murmurs and normal S1 and S2 GI Palpation (GI): Soft to palpation, Tenderness to palpation present (GI) in the RLQ and suprapubicly, no hepatomegaly and no splenomegaly Auscultation: normal bowel sounds Skin General skin exam: no rashes or lesions noted and dry skin Neuro General: oriented to person, oriented to place and oriented to time Cranial nerves: Yes Equal, round and reactive pupils present Speech: No Abnormal speech present Gait exam (Neuro): Normal gait present Motor exam (neuro): no tremor noted Extrem Right upper extremity: full ROM Left upper extremity: full ROM Right lower extremity: full ROM; no edema Left lower extremity: full ROM; no edema Psych Mental Status: mental status grossly normal Speech and movement: Normal speech and movement present Affect: normal affect Attitude: cooperative Thought process: Normal thought process present Results AMB Urinalysis, Automated UA Leukoctes 125 Dory/uL Last Edit by Mack Pena CMA on 01/30/23 10:53 UA Nitrite Negative Last Edit by Mack Pena CMA on 01/30/23 10:53 UA Urobilinogen 0.2 mg/dL Last Edit by Mack Pena CMA on 01/30/23 10:53 UA Protein 30 mg/dL Last Edit by Mack Pena CMA on 01/30/23 10:53 UA pH 6.0 Last Edit by Mack Pena CMA on 01/30/23 10:53 UA Blood 0 [place]/uL Last Edit by Mack Pena CMA on 01/30/23 10:53 UA Specific [place] 1.020 Last Edit by Mack Pena CMA on 01/30/23 10:53 UA Ketone Negative Last Edit by Mack Pena CMA on 01/30/23 10:53 UA Bilirubin 0 mg/dL Last Edit by Mack Pena CMA on 01/30/23 10:53 UA Glucose mg/dL Last Edit by Mack Pena CMA on 01/30/23 10:53 Results Reviewed Results Reviewed: Laboratory Last Values Urine pH (Auto) 6.0 01/30/23 10:52 Specific [place] (Auto) 1.020 01/30/23 10:52 Urine Protein (Auto) 30 mg/dL 01/30/23 10:52 Urine Ketones (Auto) Negative 01/30/23 10:52 Urine Blood (Auto) 0 [place]/uL 01/30/23 10:52 Urine Nitrite (Auto) Negative 01/30/23 10:52 Urine Bilirubin (Auto) 0 mg/dL 01/30/23 10:52 Urine Urobilinogen (Auto) 0.2 mg/dL 01/30/23 10:52 Leukocyte Esterase (Auto) 125 Dory/uL 01/30/23 10:52 Assessment and Plan Assessment & Plan (1) Abdominal bloating: Code(s): R14.0 - Abdominal distension (gaseous) Plan: Unclear etiology to patient's abdominal bloating though could be related to acute UTI. Does have 2+ leukocytes on urinalysis today. Will empirically treat with Macrobid (2) Urinary frequency: Code(s): R35.0 - Frequency of micturition Plan: Patient urinalysis with 2+ leukocytes and 1+ protein. Will empirically treat for cystitis with Macrobid. (3) RLQ abdominal pain: Code(s): R10.31 - Right lower quadrant pain Plan: Due to patient's right lower quadrant abdominal pain will send for urgent ultrasound it evaluate appendix. Orders: Orders Basic Metabolic Panel Today R14.0 - Abdominal distension (gaseous) CRP High Sensitivity Today R14.0 - Abdominal distension (gaseous) Lipase Today R14.0 - Abdominal distension (gaseous) Liver Panel Today R14.0 - Abdominal distension (gaseous) Complete Blood Count no Diff Today R14.0 - Abdominal distension (gaseous) Erythrocyte Sedimentation Rate Today R14.0 - Abdominal distension (gaseous) US appendix Today R14.0 - Abdominal distension (gaseous) AMB Urinalysis Automated Today Z13.9 - Encounter for screening, unspecified Medications: New nitrofurantoin monohyd/m-cryst 100 mg (Macrobid) must administer with a meal/food 100 mg PO Q12H 5 days 10 caps 0RF R35.0 - Frequency of micturition Coding Level of Care Code Est Pt Level 4 (77603) Diagnoses Abdominal bloating R14.0 Urinary frequency R35.0 RLQ abdominal pain R10.31
[2023-01-30 10:00] VITALS: BP 102/60; PULSE 99; O2SAT 96; BMI 23.1
== END 2023-01-30 10:59 | disposition home or self-care (01) ==
PROVIDERS: PCP Internal Medicine; Visit Provider Physician Assistant
DX: R14.0 Abdominal distension (gaseous) (principal); R35.0 Frequency of micturition; R10.31 Right lower quadrant pain; Z13.9 Encounter for screening, unspecified
CPT/HCPCS: 81003; 99214

== ENCOUNTER 2023-01-30 11:04 | Outpatient (REF) | payer OTHER, SELFPAY ==
[2023-01-30 12:29] LABS: Hematocrit 46.8 % (37.0-47.0); Hemoglobin 15.6 g/dl (12.0-16.0); Mean Corpuscular HGB Conc 33.3 g/dl (31.0-35.0); Mean Platelet Volume 9.6 fL (9.4-12.3); Platelet Count 344 X10*3/uL (160-400); Red Blood Count 5.03 X10*6/uL (4.20-5.50); Red Cell Distribution Width 14.8 % (11.0-16.0); White Blood Count 8.3 X10*3/uL (4.8-10.8)
[2023-01-30 13:04] LABS: Alanine Aminotransferase 15 U/L (0-31); Albumin Level 4.5 g/dL (3.5-5.0); Alkaline Phosphatase 86 U/L (39-117); Anion Gap 17 (12-20); Aspartate Amino Transferase 15 U/L (5-31); Bilirubin Direct 0.2 mg/dL (0.0-0.5); Bilirubin Total 0.5 mg/dL (0.0-1.0); Blood Urea Nitrogen 7 mg/dL (9-16); Calcium 10.3 mg/dL (8.4-10.2); Carbon Dioxide 22 mmol/L (22-29); Chloride 106 mmol/L (96-108); Estimated Glomerular Filt Rate > 60; Glucose Random 93 mg/dL (60-115); Lipase 19 U/L (8-78); Potassium 3.6 mmol/L (3.3-5.1); Sodium 141 mmol/L (135-145); Total Protein 8.2 g/dL (6.5-8.0)
[2023-01-30 13:21] LABS: Erythrocyte Sedimentation Rate 23 MM/HR (0-20)
[2023-02-01 16:04] LABS: CRP High Sensitivity >10.0 mg/L
== END 2023-01-30 11:05 | disposition home or self-care (01) ==
LOC: HO.LAB 11:04
PROVIDERS: Physician Assistant; PCP Internal Medicine; Visit Provider Internal Medicine
DX: R14.0 Abdominal distension (gaseous) (principal)
CPT/HCPCS: 36415; 80048; 80076; 83690; 85027; 85652; 86141

== ENCOUNTER 2023-02-02 14:51 | Outpatient (REF) | payer OTHER, SELFPAY ==
--- NOTE | ~2023-02-02 | US_ITS ---
History: Abdominal distention and pain. EXAM: Ultrasound right lower quadrant. TECHNIQUE: Ultrasound of the right lower quadrant is performed using graded compression. FINDINGS: The appendix is not visualized. There are no visible thickened segments of bowel or any organized fluid collections. Bowel gas limits assessment of the right lower quadrant. Normal right ovary. Trace free fluid. US/US appendix IMPRESSION: Appendix not visualized. Correlate clinically consider further imaging. Nonspecific free fluid. Recommend correlation with clinical impression and laboratories. If findings are suggestive of appendicitis, further imaging may be considered with computed tomography.
== END 2023-02-02 14:52 | disposition home or self-care (01) ==
LOC: HO.US 14:51
PROVIDERS: PCP Internal Medicine; Visit Provider Physician Assistant
DX: R14.0 Abdominal distension (gaseous) (principal)
CPT/HCPCS: 76705

== ENCOUNTER 2023-03-03 09:34 | Outpatient (REF) | payer OTHER, SELFPAY ==
[2023-03-03 09:43] LABS: MANUAL DIFF FLAG NO
[2023-03-03 09:59] LABS: Basophils Percent Auto 0.4 % (0-2); Eosinophils Absolute Auto 0.1 X10*3/uL (0.0-0.4); Eosinophils Percent Auto 1.3 % (0-4); Hematocrit 47.1 % (37.0-47.0); Hemoglobin 15.8 g/dl (12.0-16.0); Imm Gran Abs Auto 0.02 X10*3/uL (0.00-0.03); Imm Gran Pct Auto 0.3 % (0.0-0.4); Lymphocytes Absolute Auto 1.5 X10*3/uL (1.2-4.9); Lymphocytes Percent Auto 21.9 % (20-40); Mean Corpuscular HGB Conc 33.5 g/dl (31.0-35.0); Mean Corpuscular Hemoglobin 31.8 pg (27.0-33.0); Mean Corpuscular Volume 94.8 fL (80.0-98.0); Mean Platelet Volume 9.3 fL (9.4-12.3); Monocytes Absolute Auto 0.7 X10*3/uL (0.1-1.2); Monocytes Percent Auto 10.5 % (2-11); Neutrophils Absolute Auto 4.5 x10*3/uL (2.0-8.3); Neutrophils Percent Auto 65.6 % (45-73); Platelet Count 334 X10*3/uL (160-400); Red Blood Count 4.97 X10*6/uL (4.20-5.50); Red Cell Distribution Width 15.5 % (11.0-16.0); White Blood Count 6.9 X10*3/uL (4.8-10.8)
[2023-03-03 10:41] LABS: Alanine Aminotransferase 20 U/L (0-31); Albumin Level 4.4 g/dL (3.5-5.0); Alkaline Phosphatase 90 U/L (39-117); Anion Gap 13 (12-20); Aspartate Amino Transferase 19 U/L (5-31); Bilirubin Total 0.4 mg/dL (0.0-1.0); Blood Urea Nitrogen 11 mg/dL (9-16); Calcium 9.9 mg/dL (8.4-10.2); Carbon Dioxide 27 mmol/L (22-29); Chloride 107 mmol/L (96-108); Cholesterol 204 mg/dL; Estimated Glomerular Filt Rate > 60; Glucose Fasting 109 mg/dL (60-99); HDL Cholesterol 78 mg/dL; LDL Cholesterol Calculated 112 mg/dl; Potassium 4.2 mmol/L (3.3-5.1); Sodium 143 mmol/L (135-145); Total Protein 7.7 g/dL (6.5-8.0); Triglycerides 72 mg/dL
[2023-03-03 11:00] LABS: Free T4 (Free Thyroxine) 0.87 ng/dL (0.71-1.85); Thyroid Stimulating Hormone 0.62 uIU/mL (0.32-4.0); Vitamin D 25-OH Total 36.2 ng/mL (>30)
[2023-03-03 11:23] LABS: Appearance Urine Clear; Color Urine Dark Yellow; Glucose Urine UA Negative (Negative); Leukocyte Esterase Urine Moderate (2+) (Negative); Nitrite Urine Negative (Negative); PH 7.5 (5.0-9.0); Specific Gravity - Urine 1.015 (1.005-1.025); UMIC TRIGGER UACC YES; Urine Blood Negative (Negative); Urine Ketones Negative (Negative); Urine Protein Negative (Neg-Trace)
[2023-03-03 11:29] LABS: Bacteria Urine 1+ (None Seen); Hyaline Casts Urine 0-2 /LPF (0-2); RBC Urine 0-2 /HPF (0-2); UACC Culture Trigger YES
== END 2023-03-03 09:35 | disposition home or self-care (01) ==
LOC: HO.LAB 09:34
PROVIDERS: PCP Internal Medicine; Visit Provider Internal Medicine
DX: E78.00 Pure hypercholesterolemia, unspecified (principal); E55.9 Vitamin D deficiency, unspecified; E03.9 Hypothyroidism, unspecified; I10 Essential (primary) hypertension
CPT/HCPCS: 36415; 80053; 80061; 81001; 82306; 84439; 84443; 85025; 87086

== ENCOUNTER 2023-03-06 16:53 | Outpatient (AMB) | payer OTHER, SELFPAY ==
[2023-03-06 16:56] VITALS: PULSE 68; O2SAT 96
--- NOTE | 2023-03-06 16:56 | MHC.PC.OV ---
Vital Signs 03/06/23 16:56 Pulse 68 Pulse Source Pulse Oximeter Pulse Oximetry (%) 96 Oxygen Delivery Method Room Air Intake Visit Reasons: Raynaud's syndrome, hyperlipidemia Echo Vascular Tech Required: No Accompanied by: Self / Same As Patient Allergies ampicillin [Ampicillin] Allergy (Mild, Verified 03/06/23 17:18) DIARRHEA atorvastatin Allergy (Mild, Verified 03/06/23 17:18) Nausea Codeine Sulfate Allergy (Unknown, Verified 03/06/23 17:18) unknown codeine [Codeine] Adverse Reaction (Mild, Verified 03/06/23 17:18) NAUSEA & VOMITING prednisone Adverse Reaction (Unknown, Verified 03/06/23 17:18) myalgia Penicillin V Potassium Allergy (Unknown, Uncoded 03/06/23 17:18) unknown Medication List - Last Reconciled 03/06/23 by Magen Bacon MD acetaminophen 325 mg PO QID PRN amlodipine 20 mg (2 x 10 mg) PO DAILY cholecalciferol (vitamin D3) 25 mcg PO DAILY 90 days cyanocobalamin (vitamin B-12) 500 mcg PO DAILY fluoxetine 20 mg PO DAILY levothyroxine 100 mcg PO DAILY loratadine 10 mg PO DAILY multivitamin 1 tab PO DAILY 90 days nitrofurantoin monohyd/m-cryst 100 mg (Macrobid) 100 mg PO Q12H 5 days nitroglycerin 2% 0.5 inches transdermal Q6H rosuvastatin 5 mg PO DAILY 90 days silver sulfadiazine 1% (Silvadene) 1 appl topical DAILY PRN Tobacco use date assessed: 03/06/23 Dental Screening Dental Screen Date: 03/06/23 Did you have a dental visit in the last 12 months?: No Did you have a dental problem in the last 6 months where you did not have access to dental care?: No Was dental information given to patient?: No HPI Raynaud's syndrome, hyperlipidemia HPI Details Patient comes in today for her follow up visit States that she feels okay She denies any headaches or dizziness Denies any chest pains, no SOB No nausea/vomiting, no abdominal pain No change in bowel habits noted Had some GI problems last month wherein she was experiencing a lot of abdominal pain and bloating and some diarrhea States that her symptoms gradually cleared up when she was started on Macrobid by another provider here in the office Had her follow up labs done a few days ago - to discuss her results She was also started on Fluoxetine by rheumatology a few months ago but she did not start on the Rx as she did not feel that she needs it [facility] Medical History Allergic rhinitis Anxiety Benign essential hypertension Essential hypertension Hyperlipidemia Hypothyroidism Insomnia Left hand pain Lumbar degenerative disc disease Pure hypercholesterolemia Raynaud's disease Smoker Vitamin B12 deficiency Vitamin D deficiency Surgical History History of cholecystectomy History of left knee surgery Family History Father No problems noted. Mother No problems noted. Sister Rheumatoid arthritis Sister Diabetes Brother No problems noted. Brother No problems noted. Brother No problems noted. 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 1. Little interest or pleasure in doing things: not at all 2. Feeling down, depressed, or hopeless: not at all 3. Trouble falling or staying asleep, or sleeping too much: not at all 4. Feeling tired or having little energy: not at all 5. Poor appetite or overeating: not at all 6. Feeling bad about yourself - or that you are a failure or have let yourself or your family down: not at all 7. Trouble concentrating on things, such as reading the newspaper or watching television: not at all 8. Moving or speaking so slowly that other people could have noticed. Or the opposite - being so fidgety or restless that you have been moving around a lot more than usual: not at all 9. Thoughts that you would be better off or of hurting yourself in some way: not at all Total score: 0 Depression Screening Interpretation: Negative 77898 - PHQ-9 Billing: Yes Source: Developed by Drs. Gildardo Yeung, Francy Nuñez, Heath Patricio and colleagues, with an educational billy from [employer]. Thrive Questionnaire Date Thrive assessed: 03/06/23 I am a: Patient What is your living situation today?: I have a steady place to live Within the past 12 months, did the food you bought not last and you didn't have the money to get more?: Never true Within the past 12 months, did you worry whether your food would run out before you got money to buy more?: Never true Do you have trouble paying for medicines?: No Do you have trouble getting transportation to medical appointments?: No Do you have trouble paying your heating and electricity bill?: No Do you have trouble taking care of your child, family member or friend?: No Do you have trouble with day-to-day activities such as bathing, preparing meals, shopping, managing finances, etc.?: No Are you currently unemployed and looking for a job?: No Are you interested in more education?: No Please select the resources that you would like help with: None Currently or been in a relationship where the following occur: no concerns reported AUDIT C Alcohol Use Questionnaire (AUDIT-C) 1. How often do you have a drink containing alcohol?: Monthly or less 2. How many drinks containing alcohol do you have on a typical day when you are drinking?: 1 or 2 3. How often do you have six or more drinks on one occasion?: Never Total Score: 1 Score Reviewed/Action Taken: Yes THALIA-7 AMB Questionnaire THALIA-7 Date THALIA - 7 assessed: 03/06/23 Feeling nervous, anxious, or on edge: 0 = Not at all Not being able to stop or control worryin = Not at all Worrying too much about different things: 0 = Not at all Trouble relaxin = Not at all Being so restless that it is hard to sit still: 0 = Not at all Becoming easily annoyed or irritable: 0 = Not at all Feeling afraid as if something awful might happen: 0 = Not at all Total THALIA-7 score (0-4 normal; 5-9 mild; 10-14 moderate; 15-21 severe): 0 Source: Developed by Drs. Gildardo Yeung, Francy Nuñez, Heath Patricio and colleagues, with an educational billy from [employer]. Review of Systems Const Reports fatigue, Denies fever(s) and Denies headache(s) ENT Denies dysphagia, Denies dizziness, Denies otalgia, Denies headache(s), Denies neck pain, Denies odynophagia and Denies sore throat Card Denies chest pain, Denies palpitations and Denies dyspnea Resp Denies cough and Denies dyspnea GI Denies abdominal pain (GI symptoms from last month have all resolved), Denies constipation, Denies dysphagia, Denies heartburn, Denies diarrhea, Denies nausea, Denies odynophagia and Denies vomiting Denies difficulty voiding, Denies nocturia and Denies dysuria Musc Reports back pain (over the lower back,increasing lately;also has increased pain over tailbone), Reports arthralgias (increasing lately, especially in her hands) and Denies neck pain Neuro Denies dizziness and Denies headache(s) Endo Reports fatigue and Denies palpitations Physical exam (Primary Care) Vital Signs: Last Vital Signs Pulse 68 03/06/23 16:56 Pulse Ox 96 03/06/23 16:56 Oxygen Delivery Method Room Air 03/06/23 16:56 Tobacco/Smoking Status: Tobacco use Status Tobacco use date assessed 03/06/23 03/06/23 17:01 Patient Tobacco Use Status Former Tobacco user 03/06/23 17:01 e-Cigarette/Vaping Use Never Used 03/06/23 17:01 PHQ-9: PHQ-9 Score PHQ-9: Total score 0 03/06/23 17:20 Depression Screening Interpretation: Negative Thrive Assessment: Date of Thrive Assessment Date Thrive assessed 03/06/23 03/06/23 17:01 Currently or been in a relationship where the following occur: no concerns reported Const General: no acute distress and alert HENMT Ears: TM's normal bilaterally and EAC's normal Throat: Yes posterior oropharynx normal and Yes tonsils normal (no TP congestion noted) Neck Neck: Yes no lymphadenopathy and Yes supple Resp Auscultation: clear to auscultation bilaterally, no rales and no wheezes Cardio Rate: regular rate Rhythm: regular rhythm Heart sounds: no murmurs GI Palpation (GI): Soft to palpation and nontender Auscultation: normal bowel sounds Back/Spine/Pelvis Thoracic/Lumbar Spine: lumbar spinal tenderness Skin Rashes: no rashes Extrem Other: (+) healing superficial wounds on the tip of a couple of fingers on her hands General: Yes no clubbing, cyanosis or edema Right upper extremity: Extremity exam: right hand Details: tenderness and no swelling Left upper extremity: hand Details: tenderness and no swelling Results Reviewed Results Reviewed: Laboratory Tests 03/03/23 03/03/23 03/03/23 09:38 09:41 09:41 WBC 6.9 Hgb 15.8 Hct 47.1 H Plt Count 334 Sodium 143 Potassium 4.2 Creatinine 0.73 Estimated GFR > 60 Fasting Glucose 109 H Calcium 9.9 AST 19 ALT 20 Triglycerides 72 Cholesterol 204 LDL Cholesterol, Calc 112 HDL Cholesterol 78 25-OH Vitamin D Total 36.2 TSH 0.62 Free T4 0.87 Ur Specific [place] 1.015 Urine Protein Negative Urine Glucose (UA) Negative Urine Blood Negative Assessment and Plan Assessment & Plan (1) Benign essential hypertension: Code(s): I10 - Essential (primary) hypertension Plan: Reinforced low-sodium diet - goal is systolic BP of at least 120 to 130 mm or less Was taking Amlodipine 10 mg QD mostly just in the winter time in the past primarily for her Raynaud's symptoms as this also helps control her blood pressure but she is now on Amlodipine 20 mg QD regularly due to the progression of her Raynaud's syndrome (2) Raynaud's disease: Comment: onset 09/30 Code(s): I73.00 - Raynaud's syndrome without gangrene Qualifiers: Raynaud?s-associated gangrene presence: without gangrene Qualified Code(s): I73.00 - Raynaud's syndrome without gangrene Plan: Continue Amlodipine 20 mg daily Is also using Nitroglycerin ointment 2% Q 6 hours as needed for symptomatic relief Reinforced avoidance of extremes of temperature to minimize her symptoms; patient is finally able to quit smoking and has not smoked since 10/05/22 Follow up with rheumatology as scheduled (3) Pure hypercholesterolemia: Code(s): E78.00 - Pure hypercholesterolemia, unspecified Plan: Results of her labs done a few days ago reviewed and discussed with patient - lipids have increased slightly from previous Reinforced low cholesterol diet; patient admits to poor compliance with her diet over the past few weeks but will try to get back on her low cholesterol diet now Continue Rosuvastatin 5 mg QD - is tolerating Rx with no problems Will recheck her labs in 4 months for follow-up (4) Hypothyroidism: Code(s): E03.9 - Hypothyroidism, unspecified Qualifiers: Hypothyroidism type: acquired Qualified Code(s): E03.9 - Hypothyroidism, unspecified Plan: TFTs remain normal on her recent labs Continue Levothyroxine 100 mcg QD (5) Vitamin B12 deficiency: Code(s): E53.8 - Deficiency of other specified B group vitamins Plan: Continue Vitamin B12 tablets 500 mcg daily (6) Vitamin D deficiency: Code(s): E55.9 - Vitamin D deficiency, unspecified Plan: Continue OTC Vitamin-D3 capsules 1000 units QD (7) Lumbar degenerative disc disease: Code(s): M51.36 - Other intervertebral disc degeneration, lumbar region Plan: Reinforced activity and weight lifting restrictions Repeat lumbar spine x-rays done back in October 2022 revealed (+) degenerative disc disease and spondylosis at L4-L5 and lower lumbar spine facet arthritis Continue Acetaminophen 325 mg 1-2 tablets Q 6 hours as needed for pain (8) Arthralgia: Code(s): M25.50 - Pain in unspecified joint Qualifiers: Joint pain location: unspecified Qualified Code(s): M25.50 - Pain in unspecified joint Plan: Involving multiple joints, including both hands - are most likely due to OA Follow up with rheumatology as scheduled (9) Allergic rhinitis: Code(s): J30.9 - Allergic rhinitis, unspecified Qualifiers: Allergic rhinitis seasonality: unspecified Allergic rhinitis trigger: unspecified Qualified Code(s): J30.9 - Allergic rhinitis, unspecified Plan: Continue OTC Loratadine tablet 10 mg QD PRN (10) Insomnia: Code(s): G47.00 - Insomnia, unspecified Qualifiers: Insomnia type: unspecified Qualified Code(s): G47.00 - Insomnia, unspecified Plan: Sleep hygiene reinforced Was on Trazodone 50 mg 1 to 2 tablets daily at bedtime as needed previously but patient stopped taking this a few months ago Plan Follow up in 4 months Orders: Orders Lipid Panel 4 Months E78.00 - Pure hypercholesterolemia, unspecified Comprehensive Riva. Panel Fast 4 Months E78.00 - Pure hypercholesterolemia, unspecified Vitamin B12 and Folate 4 Months E53.8 - Deficiency of other specified B group vitamins Free T4 (Free Thyroxine) 4 Months E03.9 - Hypothyroidism, unspecified Thyroid Stimulating Hormone 4 Months E03.9 - Hypothyroidism, unspecified Vitamin D 25-OH Total 4 Months E55.9 - Vitamin D deficiency, unspecified Complete Blood Count Auto Diff 4 Months I10 - Essential (primary) hypertension Erythrocyte Sedimentation Rate 4 Months M79.7 - Fibromyalgia UA CC w/rflx Micro + Cult 4 Months R30.0 - Dysuria Coding Level of Care Code Est Pt Level 4 (23934) Diagnoses Benign essential hypertension I10 Raynaud's disease I73.00 Raynaud?s-associated gangrene presence: without gangrene Pure hypercholesterolemia E78.00 Hypothyroidism E03.9 Hypothyroidism type: acquired Vitamin B12 deficiency E53.8 Vitamin D deficiency E55.9 Lumbar degenerative disc disease M51.36 Arthralgia M25.50 Joint pain location: unspecified Allergic rhinitis J30.9 Allergic rhinitis seasonality: unspecified Allergic rhinitis trigger: unspecified Insomnia G47.00 Insomnia type: unspecified
== END 2023-03-06 17:36 | disposition home or self-care (01) ==
PROVIDERS: PCP Internal Medicine; Visit Provider Internal Medicine
DX: I10 Essential (primary) hypertension (principal); E03.9 Hypothyroidism, unspecified; E55.9 Vitamin D deficiency, unspecified; I73.00 Raynaud's syndrome without gangrene; E78.00 Pure hypercholesterolemia, unspecified; E53.8 Deficiency of other specified B group vitamins; M51.36 Other intervertebral disc degeneration, lumbar region; M25.50 Pain in unspecified joint; J30.9 Allergic rhinitis, unspecified; G47.00 Insomnia, unspecified
CPT/HCPCS: 99214

== ENCOUNTER → 2023-04-20 07:32 | Outpatient (BNVA) | payer OTHER, SELFPAY | PROVIDERS: PCP Internal Medicine; Visit Provider Student in an Organized Health Care Education/Training Program ==

== ENCOUNTER 2023-04-25 15:22 | Outpatient (AMB) | payer OTHER, SELFPAY ==
--- NOTE | 2023-04-25 15:32 | MHC.OFFVIS ---
Intake Vital Signs 04/25/23 15:36 Height 5 ft 3 in Weight 139 lb 15.896 oz BMI 24.8 BP 112/66 Blood Pressure Location Rt brachial Position Sitting Pulse 101 H Pulse Source Pulse Oximeter Temp 98.2 F Temp Source Skin Pulse Oximetry (%) 96 Intake Visit Reasons: Raynaud's disease, hyperlipidemia, HTN, OA Intake Note: Pt seen today for follow up. Applications Tester Required: No Accompanied by: Self / Same As Patient Allergies ampicillin [Ampicillin] Allergy (Mild, Verified 04/25/23 15:37) DIARRHEA atorvastatin Allergy (Mild, Verified 04/25/23 15:37) Nausea Codeine Sulfate Allergy (Unknown, Verified 04/25/23 15:37) unknown codeine [Codeine] Adverse Reaction (Mild, Verified 04/25/23 15:37) NAUSEA & VOMITING fluoxetine Adverse Reaction (Mild, Verified 04/25/23 16:21) feeling unwell prednisone Adverse Reaction (Unknown, Verified 04/25/23 15:37) myalgia Penicillin V Potassium Allergy (Unknown, Uncoded 04/25/23 15:37) unknown Medication List - Last Reconciled 04/25/23 by Tania Sorto MD acetaminophen 325 mg PO QID PRN amlodipine 20 mg (2 x 10 mg) PO DAILY cholecalciferol (vitamin D3) 25 mcg PO DAILY 90 days cyanocobalamin (vitamin B-12) 500 mcg PO DAILY ibuprofen 600 mg PO TID levothyroxine 100 mcg PO DAILY loratadine 10 mg PO DAILY multivitamin 1 tab PO DAILY 90 days nitroglycerin 2% 0.5 inches transdermal Q6H rosuvastatin 5 mg PO DAILY 90 days silver sulfadiazine 1% (Silvadene) 1 appl topical DAILY PRN HPI HPI Comments History of Present Illness Details 57-year-old female with Raynaud's returns for follow-up. Patient is doing well overall. She is on amlodipine 20 mg daily, she did not like how fluoxetine made her body PE so she discontinued it. She has not been using nitroglycerin paste as she does not need it. The approved a space heater to use at work. She quit smoking 10/12. Gets mild intermittent swelling of her ankles after a long day improved with elevating her legs. Overall patient is doing well. Initial history: This is a 56 year old female with a past medical history of Raynaud's who presents for Raynaud's evaluation. Patient stated that she started having Raynaud's since 09/2010 when she was admitted to [facility] with significant ischemia. Patient stated that she was started on blood thinners while admitted. She had an angiogram which showed bilateral distal are ulnar artery stenosis. Patient denies getting a vascular intervention. Over the years patient has been using amlodipine initially it was 5 mg in the summer and 10 mg in winter. More recently she has been on 10 mg daily. Patient states that her Raynaud's has become worse this winter especially affecting her right hand. Right index finger is most affected. It has remained blue. She has a superficial wound that is nonhealing. She states that her feet and toes are okay now. 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 She is usually pretty warm at home and in her truck as she keeps everything warm. Patient initially quit smoking when diagnosed with Raynaud's however she has returned to smoking. She continues to smoke 10 cigarettes a day. She denies any worsening shortness of breath. Denies GERD. Denies any other skin changes. She has had eye dryness for years. She uses artificial tears 3 times a day and uses ointment once a week. She does not use prescription eyedrops. Denies any significant dry mouth. Denies dysphagia. [facility] Medical History Pure hypercholesterolemia Benign essential hypertension Left hand pain Smoker Anxiety Insomnia Allergic rhinitis Vitamin D deficiency Vitamin B12 deficiency Lumbar degenerative disc disease Hypothyroidism Hyperlipidemia Raynaud's disease Essential hypertension Surgical History History of left knee surgery History of cholecystectomy Family History Father No problems noted. Mother No problems noted. Sister Rheumatoid arthritis Sister Diabetes Brother No problems noted. Brother No problems noted. Brother No problems noted. 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 Cognitive needs: No Hearing needs: No Vision needs: Yes Review of Systems Skin/Breast Denies non-healing lesions, Denies skin ulcer and Denies wounds Physical Exam Vital Signs: Last Vital Signs Temp 98.2 F 04/25/23 15:36 Pulse 101 H 04/25/23 15:36 BP 112/66 04/25/23 15:36 Pulse Ox 96 04/25/23 15:36 BMI result Body Mass Index 24.8 Const General: cooperative, healthy appearing and comfortable Nutritional Appearance: average body habitus and well nourished Limitations: no limitations HEENT Head: Yes normocephalic and Yes atraumatic Mouth: moist mucous membranes Resp Effort & Inspection: normal respiratory effort and able to speak in complete sentences Extrem Other: Mild osteoarthritic changes of both hands with no active synovitis Mildly abnormal nailfold capillaroscopy in the right 3rd finger with some dilated loops Bilateral finger clubbing tapered fingertips throughout Fingers are warm today, no bluish discoloration of her fingers No cracked skin or deep ulcers on her digits Assessment & Plan Assessment & Plan (1) Raynaud's disease: Comment: Onset 09/2010 Code(s): I73.00 - Raynaud's syndrome without gangrene Qualifiers: Raynaud?s-associated gangrene presence: without gangrene Qualified Code(s): I73.00 - Raynaud's syndrome without gangrene Plan: 57-year-old female is referred for evaluation of Raynaud's. In 09/2010, she was admitted to [facility] with significant ischemia.? Patient stated that she was started on blood thinners while admitted.? She had an angiogram which showed bilateral distal ulnar artery stenosis. Per patient she did not get a vascular intervention. Patient's Raynaud has been well controlled over the last few months. On amlodipine 20 mg daily. Patient could not tolerate fluoxetine. Nitroglycerin paste causes some burning Plan: 1-continue to stay away from smoking 2-continue amlodipine 20 mg daily 3- continue to use the space heater at work. 4-keep core and extremity temperature warm. Continue to wear gloves. P Follow-up in 6 months (2) Finger clubbing: Code(s): R68.3 - Clubbing of fingers Plan: Prolonged history of smoking with finger clubbing. Chest x-ray shows some bronchial thickening. Advised patient to discuss with her PCP whether she qualifies for a low-dose CT chest Plan I spent 15 minutes reviewing patient's chart, evaluating patient, counseling patient and documenting in the chart Coding Level of Care Code Est Pt Level 3 (59953) Diagnoses Raynaud's disease without gangrene I73.00 Raynaud?s-associated gangrene presence: without gangrene Finger clubbing R68.3
[2023-04-25 15:36] VITALS: BP 112/66; PULSE 101; TEMP 36.8; O2SAT 96; BMI 24.8
== END 2023-04-25 16:00 | disposition home or self-care (01) ==
PROVIDERS: PCP Internal Medicine; Visit Provider Student in an Organized Health Care Education/Training Program
DX: I73.00 Raynaud's syndrome without gangrene (principal); R68.3 Clubbing of fingers
CPT/HCPCS: 99213

== ENCOUNTER → 2023-04-25 15:22 | Outpatient (BNVA) | payer OTHER, SELFPAY | PROVIDERS: PCP Internal Medicine; Visit Provider Student in an Organized Health Care Education/Training Program | DX: I73.00 Raynaud's syndrome without gangrene (principal); R68.3 Clubbing of fingers; F17.210 Nicotine dependence, cigarettes, uncomplicated | CPT/HCPCS: 99212 ==

== ENCOUNTER 2023-07-09 16:58 | Outpatient (AMB) | payer OTHER, SELFPAY ==
[2023-07-09 17:03] VITALS: BP 136/82; PULSE 100; O2SAT 92; BMI 24.4
--- NOTE | 2023-07-09 17:03 | MHC.PC.OV ---
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 Accompanied by: Self / Same As Patient Allergies ampicillin [Ampicillin] Allergy (Mild, Verified 07/09/23 17:25) DIARRHEA atorvastatin Allergy (Mild, Verified 07/09/23 17:25) Nausea Codeine Sulfate Allergy (Unknown, Verified 07/09/23 17:25) unknown codeine [Codeine] Adverse Reaction (Mild, Verified 07/09/23 17:25) NAUSEA & VOMITING fluoxetine Adverse Reaction (Mild, Verified 07/09/23 17:25) feeling unwell prednisone Adverse Reaction (Unknown, Verified 07/09/23 17:25) myalgia Penicillin V Potassium Allergy (Unknown, Uncoded 07/09/23 17:25) unknown Medication List - Last Reconciled 07/09/23 by Magen Bacon MD acetaminophen 325 mg PO QID PRN amlodipine 20 mg (2 x 10 mg) PO DAILY cholecalciferol (vitamin D3) 25 mcg PO DAILY 90 days cyanocobalamin (vitamin B-12) 500 mcg PO DAILY ibuprofen 600 mg PO TID levothyroxine 100 mcg PO DAILY loratadine 10 mg PO DAILY multivitamin 1 tab PO DAILY 90 days nitroglycerin 2% 0.5 inches transdermal Q6H rosuvastatin 5 mg PO DAILY 90 days silver sulfadiazine 1% (Silvadene) 1 appl topical DAILY PRN Tobacco use date assessed: 07/09/23 Dental Screening Dental Screen Date: 07/09/23 Did you have a dental visit in the last 12 months?: No Did you have a dental problem in the last 6 months where you did not have access to dental care?: No Was dental information given to patient?: No HPI Raynaud's disease, hyperlipidemia HPI Details Patient comes in today for her follow up visit States that she feels okay She denies any headaches or dizziness Denies any chest pains, no SOB No nausea/vomiting, no abdominal pain No change in bowel habits noted Needs her Amlodipine Rx refilled Was not able to get her follow up labs done prior to her visit today Would like to get her flu shot today PFSH Medical History Pure hypercholesterolemia Benign essential hypertension Left hand pain Smoker Anxiety Insomnia Allergic rhinitis Vitamin D deficiency Vitamin B12 deficiency Lumbar degenerative disc disease Hypothyroidism Hyperlipidemia Raynaud's disease Essential hypertension Surgical History History of left knee surgery History of cholecystectomy Family History Father No problems noted. Mother No problems noted. Sister Rheumatoid arthritis Sister Diabetes Brother No problems noted. Brother No problems noted. Brother No problems noted. 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 1. Little interest or pleasure in doing things: not at all 2. Feeling down, depressed, or hopeless: not at all 3. Trouble falling or staying asleep, or sleeping too much: not at all 4. Feeling tired or having little energy: not at all 5. Poor appetite or overeating: not at all 6. Feeling bad about yourself - or that you are a failure or have let yourself or your family down: not at all 7. Trouble concentrating on things, such as reading the newspaper or watching television: not at all 8. Moving or speaking so slowly that other people could have noticed. Or the opposite - being so fidgety or restless that you have been moving around a lot more than usual: not at all 9. Thoughts that you would be better off or of hurting yourself in some way: not at all Total score: 0 Depression Screening Interpretation: Negative Depression Screening Done: Yes 44141 - PHQ-9 Billing: Yes Source: Developed by Drs. Gildardo Yeung, Francy Nuñez, Heath Patricio and colleagues, with an educational billy from [employer]. Thrive Questionnaire Date Thrive assessed: 07/09/23 I am a: Patient What is your living situation today?: I have a steady place to live Within the past 12 months, did the food you bought not last and you didn't have the money to get more?: Never true Within the past 12 months, did you worry whether your food would run out before you got money to buy more?: Never true Do you have trouble paying for medicines?: No Do you have trouble getting transportation to medical appointments?: No Do you have trouble paying your heating and electricity bill?: No Do you have trouble taking care of your child, family member or friend?: No Do you have trouble with day-to-day activities such as bathing, preparing meals, shopping, managing finances, etc.?: No Are you currently unemployed and looking for a job?: No Are you interested in more education?: No Please select the resources that you would like help with: None Currently or been in a relationship where the following occur: no concerns reported AUDIT C Alcohol Use Questionnaire (AUDIT-C) 1. How often do you have a drink containing alcohol?: Monthly or less 2. How many drinks containing alcohol do you have on a typical day when you are drinking?: 1 or 2 3. How often do you have six or more drinks on one occasion?: Never Total Score: 1 Score Reviewed/Action Taken: Yes THALIA-7 AMB Questionnaire THALIA-7 Date THALIA - 7 assessed: 07/09/23 Feeling nervous, anxious, or on edge: 0 = Not at all Not being able to stop or control worryin = Not at all Worrying too much about different things: 0 = Not at all Trouble relaxin = Not at all Being so restless that it is hard to sit still: 0 = Not at all Becoming easily annoyed or irritable: 0 = Not at all Feeling afraid as if something awful might happen: 0 = Not at all Total THALIA-7 score (0-4 normal; 5-9 mild; 10-14 moderate; 15-21 severe): 0 Source: Developed by Drs. Gildardo Yeung, Francy Nuñez, Heath Patricio and colleagues, with an educational billy from [employer]. Review of Systems Const Denies chills, Reports fatigue, Denies fever(s) and Denies headache(s) ENT Denies dysphagia, Denies dizziness, Denies otalgia, Denies headache(s), Denies neck pain, Denies odynophagia and Denies sore throat Card Denies chest pain, Denies palpitations and Denies dyspnea Resp Denies cough and Denies dyspnea GI Denies abdominal pain, Denies constipation, Denies dysphagia, Denies heartburn, Denies diarrhea, Denies nausea, Denies odynophagia and Denies vomiting Denies difficulty voiding, Denies nocturia, Denies dysuria and Denies urinary urgency Musc Reports back pain (over the lower back,increasing lately;also has increased pain over tailbone), Reports arthralgias (increasing lately, especially in her hands, worse when weather is cold) and Denies neck pain Skin/Breast Denies rash Neuro Denies dizziness and Denies headache(s) Endo Reports fatigue and Denies palpitations Physical exam (Primary Care) Vital Signs: Last Vital Signs Pulse 100 07/09/23 17:03 BP 136/82 07/09/23 17:03 Pulse Ox 92 07/09/23 17:03 Oxygen Delivery Method Room Air 07/09/23 17:03 BMI result Body Mass Index 24.4 Tobacco/Smoking Status: Tobacco use Status Tobacco use date assessed 07/09/23 07/09/23 17:05 Patient Tobacco Use Status Former Tobacco user 07/09/23 17:05 e-Cigarette/Vaping Use Never Used 07/09/23 17:05 PHQ-9: PHQ-9 Score PHQ-9: Total score 0 07/09/23 17:37 Depression Screening Interpretation: Negative Thrive Assessment: Date of Thrive Assessment Date Thrive assessed 07/09/23 07/09/23 17:05 Currently or been in a relationship where the following occur: no concerns reported Const General: no acute distress and alert HENMT Ears: TM's normal bilaterally and EAC's normal Throat: Yes posterior oropharynx normal and Yes tonsils normal (no TP congestion noted) Neck Neck: Yes no lymphadenopathy and Yes supple Resp Auscultation: clear to auscultation bilaterally, no rales and no wheezes Cardio Rate: regular rate Rhythm: regular rhythm Heart sounds: no murmurs GI Palpation (GI): Soft to palpation and nontender Auscultation: normal bowel sounds Back/Spine/Pelvis Thoracic/Lumbar Spine: lumbar spinal tenderness Skin Rashes: no rashes Extrem General: Yes no clubbing, cyanosis or edema Right upper extremity: Extremity exam: right hand Details: tenderness and no swelling Left upper extremity: hand Details: tenderness and no swelling Office Procedures Flu Questionnaire Does the patient have a severe egg allergy?: No Does the patient have severe life threatening allergies?: No Does the patient have a fever or illness today?: No Has the patient ever had Guillain-[place] Syndrome?: No Has the patient ever had any past reaction to a flu shot?: No Immunizations flu vacc [id number] 6mos up(PF) 60 mcg(15 mcgx4)/0.5 mL IM syringe Performing Provider: Magen Bacon MD Performing Location: [facility] Administered by: aMrio Timmons on 07/09/23 17:41 Dose Route Admin Location Dispensed Lot Number Expiration Date NDC Manager [employer] 0.5 mL IM Left Deltoid 0.5 mL [id number] 01/20/24 [id number] [employer] VIS Given Date VIS Provided VIS Publication Date 07/09/23 Single Vaccine 21 Eligibility Eligibility Date Funding Source Not [facility] Eligible 07/09/23 Private Assessment and Plan Assessment & Plan (1) Benign essential hypertension: Code(s): I10 - Essential (primary) hypertension Plan: Reinforced low-sodium diet - goal is systolic BP of at least 120 to 130 mm or less Was taking Amlodipine 10 mg QD mostly just in the winter time in the past primarily for her Raynaud's symptoms as this also helps control her blood pressure but she is now on Amlodipine 20 mg QD regularly due to the progression of her Raynaud's syndrome (2) Raynaud's disease: Comment: Onset 09/2010 Code(s): I73.00 - Raynaud's syndrome without gangrene Qualifiers: Raynaud?s-associated gangrene presence: without gangrene Qualified Code(s): I73.00 - Raynaud's syndrome without gangrene Plan: Continue Amlodipine 20 mg daily Is also using Nitroglycerin ointment 2% Q 6 hours as needed for symptomatic relief Reinforced avoidance of extremes of temperature to minimize her symptoms; patient is finally able to quit smoking and has not smoked since 10/05/22 Follow up with rheumatology as scheduled (3) Pure hypercholesterolemia: Code(s): E78.00 - Pure hypercholesterolemia, unspecified Plan: Patient was not able to get her follow up labs done prior to her appointment today - states that she will try to get them done GOVIND Reinforced low cholesterol diet Continue Rosuvastatin 5 mg QD - is tolerating Rx with no problems Will recheck her labs and fasting lipids in 4 months for follow-up (4) Hypothyroidism: Code(s): E03.9 - Hypothyroidism, unspecified Qualifiers: Hypothyroidism type: acquired Qualified Code(s): E03.9 - Hypothyroidism, unspecified Plan: TFTs remain normal on her recent labs Continue Levothyroxine 100 mcg QD (5) Vitamin B12 deficiency: Code(s): E53.8 - Deficiency of other specified B group vitamins Plan: Continue Vitamin B12 tablets 500 mcg QD (6) Vitamin D deficiency: Code(s): E55.9 - Vitamin D deficiency, unspecified Plan: Continue OTC Vitamin-D3 capsules 1000 units QD (7) Lumbar degenerative disc disease: Code(s): M51.36 - Other intervertebral disc degeneration, lumbar region Plan: Reinforced activity and weight lifting restrictions Repeat lumbar spine x-rays done back in October 2022 revealed (+) degenerative disc disease and spondylosis at L4-L5 and lower lumbar spine facet arthritis Continue Acetaminophen 325 mg 1-2 tablets Q 6 hours as needed for pain (8) Arthralgia: Code(s): M25.50 - Pain in unspecified joint Qualifiers: Joint pain location: unspecified Qualified Code(s): M25.50 - Pain in unspecified joint Plan: Involving multiple joints, including both hands - are most likely due to OA Follow up with rheumatology as scheduled (9) Allergic rhinitis: Code(s): J30.9 - Allergic rhinitis, unspecified Qualifiers: Allergic rhinitis seasonality: unspecified Allergic rhinitis trigger: unspecified Qualified Code(s): J30.9 - Allergic rhinitis, unspecified Plan: Continue OTC Loratadine tablet 10 mg QD PRN (10) Insomnia: Code(s): G47.00 - Insomnia, unspecified Qualifiers: Insomnia type: unspecified Qualified Code(s): G47.00 - Insomnia, unspecified Plan: Sleep hygiene reinforced Was on Trazodone 50 mg 1 to 2 tablets daily at bedtime as needed previously but patient stopped taking this a few months ago Plan Flu vaccine given today Follow up in 4 months Orders: Orders Thyroid Stimulating Hormone 4 Months E03.9 - Hypothyroidism, unspecified Free T4 (Free Thyroxine) 4 Months E03.9 - Hypothyroidism, unspecified Complete Blood Count Auto Diff 4 Months I10 - Essential (primary) hypertension Lipid Panel 4 Months E78.00 - Pure hypercholesterolemia, unspecified UA CC w/rflx Micro + Cult 4 Months R30.0 - Dysuria Influenza [id number] Immunization 07/09/23 Z23 - Encounter for immunization [facility] [place]. Panel Fast 4 Months E78.00 - Pure hypercholesterolemia, unspecified Vitamin D 25-OH Total 4 Months E55.9 - Vitamin D deficiency, unspecified Vitamin B12 and Folate 4 Months E53.8 - Deficiency of other specified B group vitamins Medications: Refilled amlodipine 20 mg (2 x 10 mg) PO DAILY 180 tabs 1RF I73.00 - Raynaud's syndrome without gangrene Coding Level of Care Code Est Pt Level 4 (01447) Diagnoses Benign essential hypertension I10 Raynaud's disease without gangrene I73.00 Raynaud?s-associated gangrene presence: without gangrene Pure hypercholesterolemia E78.00 Acquired hypothyroidism E03.9 Hypothyroidism type: acquired Vitamin B12 deficiency E53.8 Vitamin D deficiency E55.9 Lumbar degenerative disc disease M51.36 Arthralgia, unspecified joint M25.50 Joint pain location: unspecified Allergic rhinitis, unspecified seasonality, unspecified trigger J30.9 Allergic rhinitis seasonality: unspecified Allergic rhinitis trigger: unspecified Insomnia, unspecified type G47.00 Insomnia type: unspecified
== END 2023-07-09 17:42 | disposition home or self-care (01) ==
PROVIDERS: PCP Internal Medicine; Visit Provider Internal Medicine
DX: Z23 Encounter for immunization (principal)
CPT/HCPCS: 90471; 90686; 99214

== ENCOUNTER 2023-07-14 07:38 | Outpatient (REF) | payer OTHER, SELFPAY ==
[2023-07-14 11:14] LABS: MANUAL DIFF FLAG NO
[2023-07-14 11:17] LABS: Basophils Percent Auto 0.2 % (0-2); Eosinophils Absolute Auto 0.1 X10*3/uL (0.0-0.4); Eosinophils Percent Auto 1.1 % (0-4); Hematocrit 46.1 % (37.0-47.0); Hemoglobin 15.6 g/dl (12.0-16.0); Imm Gran Abs Auto 0.03 X10*3/uL (0.00-0.03); Imm Gran Pct Auto 0.3 % (0.0-0.4); Lymphocytes Percent Auto 11.6 % (20-40); Mean Corpuscular HGB Conc 33.8 g/dl (31.0-35.0); Mean Corpuscular Hemoglobin 32.7 pg (27.0-33.0); Mean Corpuscular Volume 96.6 fL (80.0-98.0); Mean Platelet Volume 9.9 fL (9.4-12.3); Monocytes Percent Auto 10.9 % (2-11); Neutrophils Absolute Auto 6.8 x10*3/uL (2.0-8.3); Neutrophils Percent Auto 75.9 % (45-73); Platelet Count 361 X10*3/uL (160-400); Red Blood Count 4.77 X10*6/uL (4.20-5.50); Red Cell Distribution Width 14.3 % (11.0-16.0)
[2023-07-14 11:18] LABS: Appearance Urine Clear; Color Urine Yellow; Glucose Urine UA Negative (Negative); Leukocyte Esterase Urine Moderate (2+) (Negative); Nitrite Urine Negative (Negative); PH 7.5 (5.0-9.0); UMIC TRIGGER UACC YES; Urine Blood Negative (Negative); Urine Ketones Negative (Negative); Urine Protein Negative (Neg-Trace)
[2023-07-14 11:36] LABS: Alanine Aminotransferase 17 U/L (0-31); Albumin Level 4.4 g/dL (3.5-5.0); Alkaline Phosphatase 101 U/L (39-117); Anion Gap 13 (12-20); Aspartate Amino Transferase 20 U/L (5-31); Bilirubin Total 0.3 mg/dL (0.0-1.0); Blood Urea Nitrogen 8 mg/dL (9-16); Calcium 9.4 mg/dL (8.4-10.2); Carbon Dioxide 25 mmol/L (22-29); Chloride 105 mmol/L (96-108); Cholesterol 173 mg/dL (<200); Estimated Glomerular Filt Rate > 60; Glucose Fasting 100 mg/dL (60-99); HDL Cholesterol 81 mg/dL (>40); LDL Cholesterol Calculated 83 mg/dL (<100); Potassium 3.7 mmol/L (3.3-5.1); Sodium 139 mmol/L (135-145); Total Protein 7.8 g/dL (6.5-8.0); Triglycerides 48 mg/dL (<150)
[2023-07-14 11:57] LABS: Erythrocyte Sedimentation Rate 12 MM/HR (0-20)
[2023-07-14 11:58] LABS: Free T4 (Free Thyroxine) 1.57 ng/dL (0.71-1.85); Thyroid Stimulating Hormone 0.61 uIU/mL (0.32-4.0); Vitamin D 25-OH Total 41.7 ng/mL (>30)
[2023-07-14 12:04] LABS: Folate 5.2 ng/mL (> or = 4.0); Vitamin B12 906 pg/mL (200-900)
[2023-07-14 13:47] LABS: Bacteria Urine None Seen (None Seen); Hyaline Casts Urine 0-2 /LPF (0-2); RBC Urine 0-2 /HPF (0-2); Squamous Epithelial Cell Urine 0-2 /HPF (0-2); WBC Urine 0-5 /HPF (0-5)
== END 2023-07-14 07:39 | disposition home or self-care (01) ==
LOC: HO.HMGCLDS 07:38
PROVIDERS: PCP Internal Medicine; Visit Provider Internal Medicine
DX: E55.9 Vitamin D deficiency, unspecified (principal); I10 Essential (primary) hypertension; E78.00 Pure hypercholesterolemia, unspecified; M79.7 Fibromyalgia; E03.9 Hypothyroidism, unspecified; E53.8 Deficiency of other specified B group vitamins; R30.0 Dysuria
CPT/HCPCS: 36415; 80053; 80061; 81001; 82306; 82607; 82746; 84439; 84443; 85025; 85652

== ENCOUNTER 2023-10-25 15:40 | Outpatient (AMB) | payer OTHER, SELFPAY ==
--- NOTE | 2023-10-25 15:41 | MHC.OFFVIS ---
Intake Vital Signs 10/25/23 15:42 Height 5 ft 3 in Weight 137 lb 2.04 oz BMI 24.3 BP 136/62 Blood Pressure Location Rt brachial Position Sitting Pulse 108 H Pulse Source Pulse Oximeter Pulse Oximetry (%) 94 Oxygen Delivery Method Room Air Intake Visit Reasons: Raynaud's phenomenon/LVM/cm Intake Note: Patient last seen 04/25/23 presents today for follow up. Display Maker Required: No Accompanied by: Self / Same As Patient Allergies ampicillin [Ampicillin] Allergy (Mild, Verified 10/25/23 15:44) DIARRHEA atorvastatin Allergy (Mild, Verified 10/25/23 15:44) Nausea Codeine Sulfate Allergy (Unknown, Verified 10/25/23 15:44) unknown codeine [Codeine] Adverse Reaction (Mild, Verified 10/25/23 15:44) NAUSEA & VOMITING fluoxetine Adverse Reaction (Mild, Verified 10/25/23 15:44) feeling unwell prednisone Adverse Reaction (Unknown, Verified 10/25/23 15:44) myalgia Penicillin V Potassium Allergy (Unknown, Uncoded 10/25/23 15:44) unknown Medication List - Last Reconciled 10/25/23 by Tania Sorto MD acetaminophen 325 mg PO QID PRN amlodipine 20 mg (2 x 10 mg) PO DAILY cholecalciferol (vitamin D3) 25 mcg PO DAILY 90 days cyanocobalamin (vitamin B-12) 500 mcg PO DAILY ibuprofen 600 mg PO TID levothyroxine 100 mcg PO DAILY loratadine 10 mg PO DAILY multivitamin 1 tab PO DAILY 90 days rosuvastatin 5 mg PO DAILY 90 days silver sulfadiazine 1% (Silvadene) 1 appl topical DAILY PRN HPI HPI Comments History of Present Illness Details 57-year-old female with Raynaud's returns for follow-up. Patient is doing well overall. She states that her Raynaud's has been well controlled through the winter months. She states that having a space heater at work have made a world of difference for her. Continues to take amlodipine 20 mg daily. States that she has been cheating and smokes a few cigarettes a week. Initial history: This is a 56 year old female with a past medical history of Raynaud's who presents for Raynaud's evaluation. Patient stated that she started having Raynaud's since 09/2010 when she was admitted to [facility] with significant ischemia. Patient stated that she was started on blood thinners while admitted. She had an angiogram which showed bilateral distal are ulnar artery stenosis. Patient denies getting a vascular intervention. Over the years patient has been using amlodipine initially it was 5 mg in the summer and 10 mg in winter. More recently she has been on 10 mg daily. Patient states that her Raynaud's has become worse this winter especially affecting her right hand. Right index finger is most affected. It has remained blue. She has a superficial wound that is nonhealing. She states that her feet and toes are okay now. 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 She is usually pretty warm at home and in her truck as she keeps everything warm. Patient initially quit smoking when diagnosed with Raynaud's however she has returned to smoking. She continues to smoke 10 cigarettes a day. She denies any worsening shortness of breath. Denies GERD. Denies any other skin changes. She has had eye dryness for years. She uses artificial tears 3 times a day and uses ointment once a week. She does not use prescription eyedrops. Denies any significant dry mouth. Denies dysphagia. [facility] Medical History Pure hypercholesterolemia Benign essential hypertension Left hand pain Smoker Anxiety Insomnia Allergic rhinitis Vitamin D deficiency Vitamin B12 deficiency Lumbar degenerative disc disease Hypothyroidism Hyperlipidemia Raynaud's disease Essential hypertension Surgical History History of left knee surgery History of cholecystectomy Family History Father No problems noted. Mother No problems noted. Sister Rheumatoid arthritis Sister Diabetes Brother No problems noted. Brother No problems noted. Brother No problems noted. 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 Cognitive needs: No Hearing needs: No Vision needs: Yes Review of Systems Skin/Breast Denies non-healing lesions, Denies skin ulcer and Denies wounds Physical Exam Vital Signs: Last Vital Signs Pulse 108 H 10/25/23 15:42 BP 136/62 10/25/23 15:42 Pulse Ox 94 10/25/23 15:42 Oxygen Delivery Method Room Air 10/25/23 15:42 BMI result Body Mass Index 24.3 Const General: cooperative, healthy appearing and comfortable Nutritional Appearance: average body habitus and well nourished Limitations: no limitations HEENT Head: Yes normocephalic and Yes atraumatic Mouth: moist mucous membranes Resp Effort & Inspection: normal respiratory effort and able to speak in complete sentences Extrem Other: Mild osteoarthritic changes of both hands with no active synovitis Mildly abnormal nailfold capillaroscopy in the right 3rd finger with some dilated loops Bilateral finger clubbing tapered fingertips throughout Fingers are warm today, no bluish discoloration of her fingers No cracked skin or deep ulcers on her digits Assessment & Plan Assessment & Plan (1) Raynaud's disease: Comment: Onset 09/2010 Code(s): I73.00 - Raynaud's syndrome without gangrene Qualifiers: Raynaud?s-associated gangrene presence: without gangrene Qualified Code(s): I73.00 - Raynaud's syndrome without gangrene Plan: 57-year-old female with Raynaud's returns for follow-up. In 09/2010, she was admitted to [facility] with significant ischemia.? Patient stated that she was started on blood thinners while admitted.? She had an angiogram which showed bilateral distal ulnar artery stenosis. Per patient she did not get a vascular intervention. Patient's Raynaud has been well controlled over the last few months. On amlodipine 20 mg daily. Patient could not tolerate fluoxetine. Plan: 1-continue to stay away from smoking 2-continue amlodipine 20 mg daily 3- continue to use the space heater at work. 4-keep core and extremity temperature warm. Continue to wear gloves. Follow-up in 6 months (2) Finger clubbing: Code(s): R68.3 - Clubbing of fingers Plan: Prolonged history of smoking with finger clubbing. Chest x-ray shows some bronchial thickening. Advised patient to discuss with her PCP whether she qualifies for a low-dose CT chest Plan I spent 25 minutes reviewing patient's chart, evaluating patient, counseling patient and documenting in the chart Coding Level of Care Code Est Pt Level 4 (70450) Diagnoses Raynaud's disease without gangrene I73.00 Raynaud?s-associated gangrene presence: without gangrene Finger clubbing R68.3
[2023-10-25 15:42] VITALS: BP 136/62; PULSE 108; O2SAT 94; BMI 24.3
== END 2023-10-25 16:13 | disposition home or self-care (01) ==
PROVIDERS: PCP Internal Medicine; Visit Provider Student in an Organized Health Care Education/Training Program
DX: I73.00 Raynaud's syndrome without gangrene (principal); R68.3 Clubbing of fingers
CPT/HCPCS: 99214

== ENCOUNTER → 2023-10-25 15:40 | Outpatient (BNVA) | payer OTHER, SELFPAY | PROVIDERS: PCP Internal Medicine; Visit Provider Student in an Organized Health Care Education/Training Program | DX: I73.00 Raynaud's syndrome without gangrene (principal); R68.3 Clubbing of fingers | CPT/HCPCS: 99212 ==

== ENCOUNTER 2023-11-10 07:40 | Outpatient (REF) | payer OTHER, SELFPAY ==
[2023-11-10 11:57] LABS: MANUAL DIFF FLAG NO
[2023-11-10 11:59] LABS: Basophils Percent Auto 0.3 % (0-2); Eosinophils Absolute Auto 0.1 X10*3/uL (0.0-0.4); Eosinophils Percent Auto 1.4 % (0-4); Hematocrit 47.2 % (37.0-47.0); Hemoglobin 16.1 g/dl (12.0-16.0); Imm Gran Abs Auto 0.01 X10*3/uL (0.00-0.03); Imm Gran Pct Auto 0.1 % (0.0-0.4); Lymphocytes Absolute Auto 1.2 X10*3/uL (1.2-4.9); Lymphocytes Percent Auto 17.8 % (20-40); Mean Corpuscular HGB Conc 34.1 g/dl (31.0-35.0); Mean Corpuscular Hemoglobin 32.3 pg (27.0-33.0); Mean Corpuscular Volume 94.6 fL (80.0-98.0); Monocytes Absolute Auto 0.9 X10*3/uL (0.1-1.2); Monocytes Percent Auto 12.2 % (2-11); Neutrophils Absolute Auto 4.7 x10*3/uL (2.0-8.3); Neutrophils Percent Auto 68.2 % (45-73); Platelet Count 373 X10*3/uL (160-400); Red Blood Count 4.99 X10*6/uL (4.20-5.50); Red Cell Distribution Width 14.6 % (11.0-16.0)
[2023-11-10 12:10] LABS: Appearance Urine Clear; Color Urine Dark Yellow; Glucose Urine UA Negative (Negative); Leukocyte Esterase Urine Trace (Negative); Nitrite Urine Negative (Negative); PH 6.5 (5.0-9.0); Specific Gravity - Urine 1.015 (1.005-1.025); UMIC TRIGGER UACC YES; Urine Blood Negative (Negative); Urine Ketones Negative (Negative); Urine Protein Negative (Neg-Trace)
[2023-11-10 12:17] LABS: Bacteria Urine None Seen (None Seen); Hyaline Casts Urine 0-2 /LPF (0-2); RBC Urine 0-2 /HPF (0-2); WBC Urine 0-5 /HPF (0-5)
[2023-11-10 12:24] LABS: Alanine Aminotransferase 21 U/L (0-31); Albumin Level 4.4 g/dL (3.5-5.0); Alkaline Phosphatase 93 U/L (39-117); Anion Gap 12 (12-20); Aspartate Amino Transferase 20 U/L (5-31); Bilirubin Total 0.4 mg/dL (0.0-1.0); Blood Urea Nitrogen 12 mg/dL (9-16); Calcium 9.8 mg/dL (8.4-10.2); Carbon Dioxide 26 mmol/L (22-29); Chloride 107 mmol/L (96-108); Cholesterol 186 mg/dL (<200); Estimated Glomerular Filt Rate > 60; Glucose Fasting 105 mg/dL (60-99); HDL Cholesterol 71 mg/dL (>40); LDL Cholesterol Calculated 98 mg/dL (<100); Sodium 141 mmol/L (135-145); Total Protein 7.9 g/dL (6.5-8.0); Triglycerides 86 mg/dL (<150)
[2023-11-10 12:40] LABS: Free T4 (Free Thyroxine) 1.07 ng/dL (0.71-1.85); Thyroid Stimulating Hormone 0.46 uIU/mL (0.32-4.0); Vitamin D 25-OH Total 37.5 ng/mL (>30)
[2023-11-11 00:14] LABS: Folate 4.9 ng/mL (> or = 4.0); Vitamin B12 743 pg/mL (200-900)
== END 2023-11-10 07:41 | disposition home or self-care (01) ==
LOC: HO.HMGCLDS 07:40
PROVIDERS: PCP Internal Medicine; Visit Provider Internal Medicine
DX: E03.9 Hypothyroidism, unspecified (principal); E55.9 Vitamin D deficiency, unspecified; E53.8 Deficiency of other specified B group vitamins; E78.00 Pure hypercholesterolemia, unspecified; I10 Essential (primary) hypertension; R30.0 Dysuria
CPT/HCPCS: 36415; 80053; 80061; 81001; 82306; 82607; 82746; 84439; 84443; 85025

== ENCOUNTER 2023-11-12 16:51 | Outpatient (AMB) | payer OTHER, SELFPAY ==
--- NOTE | 2023-11-12 16:54 | A.OFFPC_ITS ---
Vital Signs 11/12/23 16:56 Height 5 ft 3 in Weight 136 lb 8 oz BMI 24.2 BP 130/78 Blood Pressure Location Lt brachial Position Sitting Pulse 105 H Pulse Source Pulse Oximeter Pulse Oximetry (%) 93 Oxygen Delivery Method Room Air Intake Visit Reasons: hyperlipidemia, Raynaud's syndrome, hypothyroidism Intake Note: Patient is here to follow up on HLD, Raynaud's, Hypothyroidism. 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 per policy Accompanied by: Self / Same As Patient Allergies ampicillin [Ampicillin] Allergy (Mild, Verified 11/12/23 17:31) DIARRHEA atorvastatin Allergy (Mild, Verified 11/12/23 17:31) Nausea Codeine Sulfate Allergy (Unknown, Verified 11/12/23 17:31) unknown codeine [Codeine] Adverse Reaction (Mild, Verified 11/12/23 17:31) NAUSEA & VOMITING fluoxetine Adverse Reaction (Mild, Verified 11/12/23 17:31) feeling unwell prednisone Adverse Reaction (Unknown, Verified 11/12/23 17:31) myalgia Penicillin V Potassium Allergy (Unknown, Uncoded 11/12/23 17:31) unknown Medication List - Last Reconciled 11/12/23 by Magen Bacon MD acetaminophen 325 mg PO QID PRN amlodipine 20 mg (2 x 10 mg) PO DAILY cholecalciferol (vitamin D3) 25 mcg PO DAILY 90 days cyanocobalamin (vitamin B-12) 500 mcg PO DAILY levothyroxine 100 mcg PO DAILY loratadine 10 mg PO DAILY multivitamin 1 tab PO DAILY 90 days rosuvastatin 5 mg PO DAILY 90 days silver sulfadiazine 1% (Silvadene) 1 appl topical DAILY PRN Tobacco use date assessed: 11/12/23 Dental Screening Dental Screen Date: 11/12/23 Did you have a dental visit in the last 12 months?: No Did you have a dental problem in the last 6 months where you did not have access to dental care?: No Was dental information given to patient?: No HPI hyperlipidemia, Raynaud's syndrome, hypothyroidism HPI Details Patient comes in today for her follow up visit States that she feels okay She denies any headaches or dizziness Denies any chest pains, no increased although she reports (+) on and off coughing and coughs up minimal whitish phlegm at times No nausea/vomiting, no abdominal pain No change in bowel habits noted Had her follow up labs done a couple of days ago - to discuss her results [facility] Medical History Pure hypercholesterolemia Benign essential hypertension Left hand pain Smoker Anxiety Insomnia Allergic rhinitis Vitamin D deficiency Vitamin B12 deficiency Lumbar degenerative disc disease Hypothyroidism Hyperlipidemia Raynaud's disease Essential hypertension Surgical History History of left knee surgery History of cholecystectomy Family History Father No problems noted. Mother No problems noted. Sister Rheumatoid arthritis Sister Diabetes Brother No problems noted. Brother No problems noted. Brother No problems noted. 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 1. Little interest or pleasure in doing things: not at all 2. Feeling down, depressed, or hopeless: not at all 3. Trouble falling or staying asleep, or sleeping too much: not at all 4. Feeling tired or having little energy: not at all 5. Poor appetite or overeating: not at all 6. Feeling bad about yourself - or that you are a failure or have let yourself or your family down: not at all 7. Trouble concentrating on things, such as reading the newspaper or watching television: not at all 8. Moving or speaking so slowly that other people could have noticed. Or the opposite - being so fidgety or restless that you have been moving around a lot more than usual: not at all 9. Thoughts that you would be better off or of hurting yourself in some way: not at all Total score: 0 Depression Screening Interpretation: Negative Depression Screening Done: Yes [id number] - PHQ-9 Billing: Yes Source: Developed by Drs. Gildardo Yeung, Francy Nuñez, Heath Patricio and colleagues, with an educational billy from [employer]. Thrive Questionnaire Date Thrive assessed: 11/12/23 I am a: Patient What is your living situation today?: I have a steady place to live Within the past 12 months, did the food you bought not last and you didn't have the money to get more?: Never true Within the past 12 months, did you worry whether your food would run out before you got money to buy more?: Never true Do you have trouble paying for medicines?: No Do you have trouble getting transportation to medical appointments?: No Do you have trouble paying your heating and electricity bill?: No Do you have trouble taking care of your child, family member or friend?: No Do you have trouble with day-to-day activities such as bathing, preparing meals, shopping, managing finances, etc.?: No Are you currently unemployed and looking for a job?: No Are you interested in more education?: No Currently or been in a relationship where the following occur: no concerns reported THRIVE Score: 0 AUDIT C Alcohol Use Questionnaire (AUDIT-C) 1. How often do you have a drink containing alcohol?: Monthly or less 2. How many drinks containing alcohol do you have on a typical day when you are drinking?: 1 or 2 3. How often do you have six or more drinks on one occasion?: Never Total Score: 1 Score Reviewed/Action Taken: Yes THALIA-7 AMB Questionnaire THALIA-7 Date THALIA - 7 assessed: 11/12/23 Feeling nervous, anxious, or on edge: 0 = Not at all Not being able to stop or control worryin = Not at all Worrying too much about different things: 0 = Not at all Trouble relaxin = Not at all Being so restless that it is hard to sit still: 0 = Not at all Becoming easily annoyed or irritable: 0 = Not at all Feeling afraid as if something awful might happen: 0 = Not at all Total THALIA-7 score (0-4 normal; 5-9 mild; 10-14 moderate; 15-21 severe): 0 Source: Developed by Drs. Gildardo Yeung, Francy Nuñez, Heath Patricio and colleagues, with an educational billy from [employer]. Review of Systems Const Denies chills, Denies fatigue, Denies fever(s) and Denies headache(s) ENT Denies dysphagia, Denies dizziness, Denies otalgia, Denies headache(s), Denies neck pain, Denies odynophagia and Denies sore throat Card Denies chest pain, Denies palpitations and Denies dyspnea Resp Denies chest congestion, Reports cough (on and off, coughs up minimal whitish phlegm at times), Denies dyspnea and Denies wheezing GI Denies abdominal pain, Denies constipation, Denies dysphagia, Denies heartburn, Denies diarrhea, Denies nausea, Denies odynophagia and Denies vomiting Denies difficulty voiding, Denies nocturia, Denies dysuria and Denies urinary urgency Musc Reports back pain (over the lower back,increasing lately;also has increased pain over tailbone), Reports arthralgias (increasing lately, especially in her hands, worse when weather is cold) and Denies neck pain Skin/Breast Denies rash Neuro Denies dizziness and Denies headache(s) Endo Denies fatigue and Denies palpitations Aller/Immun Denies wheezing Physical exam (Primary Care) Vital Signs: Last Vital Signs Pulse 105 H 11/12/23 16:56 BP 130/78 11/12/23 16:56 Pulse Ox 93 11/12/23 16:56 Oxygen Delivery Method Room Air 11/12/23 16:56 BMI result Body Mass Index 24.2 Tobacco/Smoking Status: Tobacco use Status Tobacco use date assessed 11/12/23 11/12/23 17:00 Patient Tobacco Use Status Former Tobacco user 11/12/23 17:00 e-Cigarette/Vaping Use Never Used 11/12/23 17:00 PHQ-9: PHQ-9 Score PHQ-9: Total score 0 11/12/23 17:35 Depression Screening Interpretation: Negative Thrive Assessment: Date of Thrive Assessment Date Thrive assessed 11/12/23 11/12/23 17:00 Currently or been in a relationship where the following occur: no concerns reported Const General: no acute distress and alert HENMT Ears: TM's normal bilaterally and EAC's normal Throat: Yes posterior oropharynx normal and Yes tonsils normal (no TP congestion noted) Neck Neck: Yes no lymphadenopathy and Yes supple Thyroid: Thyroid normal Resp Auscultation: no rales, rhonchi (occasional) throughout, no wheezes and diminished lung sounds bilateral Cardio Rate: regular rate Rhythm: regular rhythm Heart sounds: no murmurs GI Palpation (GI): Soft to palpation and nontender Auscultation: normal bowel sounds General: Yes no CVA tenderness Back/Spine/Pelvis Back: no CVA tenderness Thoracic/Lumbar Spine: lumbar spinal tenderness Skin Rashes: no rashes Extrem General: Yes no clubbing, cyanosis or edema Right upper extremity: Extremity exam: right hand Details: tenderness and no swelling Left upper extremity: hand Details: tenderness and no swelling Results Reviewed Results Reviewed: Laboratory Tests 11/10/23 07:49 WBC 7.0 Hgb 16.1 H Hct 47.2 H Plt Count 373 Sodium 141 Potassium 4.0 Creatinine 0.68 Estimated GFR > 60 Fasting Glucose 105 H Calcium 9.8 AST 20 ALT 21 Triglycerides 86 Cholesterol 186 LDL Cholesterol, Calc 98 HDL Cholesterol 71 Vitamin B12 743 25-OH Vitamin D Total 37.5 TSH 0.46 Free T4 1.07 Ur Specific [place] 1.015 Urine Protein Negative Urine Glucose (UA) Negative Urine Blood Negative Urine Nitrite Negative Ur Leukocyte Esterase Trace H Assessment and Plan Assessment & Plan (1) Benign essential hypertension: Code(s): I10 - Essential (primary) hypertension Plan: Reinforced low-sodium diet - goal is systolic BP of at least 120 to 130 mm or less Was taking Amlodipine 10 mg QD mostly just in the winter time in the past [facility] for her Raynaud's symptoms as this also helps control her blood pressure but she is now on Amlodipine 20 mg QD regularly due to the progression of her Raynaud's syndrome She is advised to try monitoring her blood pressure regularly (2) Raynaud's disease: Comment: Onset 09/2010 Code(s): I73.00 - Raynaud's syndrome without gangrene Qualifiers: Raynaud?s-associated gangrene presence: without gangrene Qualified Code(s): I73.00 - Raynaud's syndrome without gangrene Plan: Continue Amlodipine 20 mg QD She is also using Nitroglycerin ointment 2% Q 6 hours on her hands as needed for symptomatic relief Reinforced avoidance of extremes of temperature to minimize her symptoms; patient was able to quit smoking last year in September 2022 but admits that she has been smoking here and there recently Follow up with rheumatology as scheduled (3) Pure hypercholesterolemia: Code(s): E78.00 - Pure hypercholesterolemia, unspecified Plan: Results of her labs done a couple of days ago reviewed and discussed with patient Reinforced low cholesterol diet Continue Rosuvastatin 5 mg QD - she has been tolerating her Rx without any problems so far Will recheck her labs and fasting lipids in 4 months for follow-up (4) Hypothyroidism: Code(s): E03.9 - Hypothyroidism, unspecified Qualifiers: Hypothyroidism type: acquired Qualified Code(s): E03.9 - Hypothyroidism, unspecified Plan: Her TFTs remain normal on her recent labs Continue Levothyroxine 100 mcg QD (5) Vitamin B12 deficiency: Code(s): E53.8 - Deficiency of other specified B group vitamins Plan: Continue Vitamin B12 tablets 500 mcg QD (6) Vitamin D deficiency: Code(s): E55.9 - Vitamin D deficiency, unspecified Plan: Continue OTC Vitamin-D3 capsules 1000 units QD (7) Lumbar degenerative disc disease: Code(s): M51.36 - Other intervertebral disc degeneration, lumbar region Plan: Reinforced activity and weight lifting restrictions Repeat lumbar spine x-rays done back in October 2022 revealed (+) degenerative disc disease and spondylosis at L4-L5 and lower lumbar spine facet arthritis Continue Acetaminophen 325 mg 1-2 tablets Q 6 hours as needed for pain (8) Arthralgia: Code(s): M25.50 - Pain in unspecified joint Qualifiers: Joint pain location: unspecified Qualified Code(s): M25.50 - Pain in unspecified joint Plan: Involving multiple joints, including both hands - are most likely due to OA Follow up with rheumatology as scheduled (9) Allergic rhinitis: Code(s): J30.9 - Allergic rhinitis, unspecified Qualifiers: Allergic rhinitis seasonality: unspecified Allergic rhinitis trigger: unspecified Qualified Code(s): J30.9 - Allergic rhinitis, unspecified Plan: Continue OTC Loratadine tablet 10 mg QD PRN (10) Insomnia: Code(s): G47.00 - Insomnia, unspecified Qualifiers: Insomnia type: unspecified Qualified Code(s): G47.00 - Insomnia, unspecified Plan: Sleep hygiene reinforced Was on Trazodone 50 mg 1 to 2 tablets daily at bedtime as needed previously but patient stopped taking this a few months ago Advised that she can try taking this again if she continues to struggle with sleeping at night and can just take this when she needs it (11) Smoker: Code(s): F17.200 - Nicotine dependence, unspecified, uncomplicated Plan: Counseled again on smoking cessation She was able to quit smoking in September 2022 but admits that she has been smoking here and there again recently Rheumatology has suggested that she may be a candidate for the lung cancer screening program here at [facility] due to her significant smoking history - will look into whether patient qualifies for the program at this time and if she does, will refer her for lung cancer screening Have also discussed with patient that based on how her lungs sound on exam/auscultation today, she likely has COPD and will also consider referring her to pulmonary medicine in the future Plan Follow up in 4 months Orders: Orders Comprehensive [place]. Panel Fast 4 Months E78.00 - Pure hypercholesterolemia, unspecified Thyroid Stimulating Hormone 4 Months E03.9 - Hypothyroidism, unspecified Free T4 (Free Thyroxine) 4 Months E03.9 - Hypothyroidism, unspecified Vitamin D 25-OH Total 4 Months E55.9 - Vitamin D deficiency, unspecified UA CC w/rflx Micro + Cult 4 Months R30.0 - Dysuria Complete Blood Count Auto Diff 4 Months D64.9 - Anemia, unspecified Lipid Panel 4 Months E78.00 - Pure hypercholesterolemia, unspecified Coding Level of Care Code Est Pt Level 4 (03979) Diagnoses Benign essential hypertension I10 Raynaud's disease without gangrene I73.00 Raynaud?s-associated gangrene presence: without gangrene Pure hypercholesterolemia E78.00 Acquired hypothyroidism E03.9 Hypothyroidism type: acquired Vitamin B12 deficiency E53.8 Vitamin D deficiency E55.9 Lumbar degenerative disc disease M51.36 Arthralgia, unspecified joint M25.50 Joint pain location: unspecified Allergic rhinitis, unspecified seasonality, unspecified trigger J30.9 Allergic rhinitis seasonality: unspecified Allergic rhinitis trigger: unspecified Insomnia, unspecified type G47.00 Insomnia type: unspecified Smoker F17.200
[2023-11-12 16:56] VITALS: BP 130/78; PULSE 105; O2SAT 93; BMI 24.2
== END 2023-11-12 17:43 | disposition home or self-care (01) ==
PROVIDERS: PCP Internal Medicine; Visit Provider Internal Medicine
DX: I10 Essential (primary) hypertension (principal); I73.00 Raynaud's syndrome without gangrene; E78.00 Pure hypercholesterolemia, unspecified; E03.9 Hypothyroidism, unspecified; E53.8 Deficiency of other specified B group vitamins; E55.9 Vitamin D deficiency, unspecified; M51.36 Other intervertebral disc degeneration, lumbar region; M25.50 Pain in unspecified joint; J30.9 Allergic rhinitis, unspecified; G47.00 Insomnia, unspecified; F17.200 Nicotine dependence, unspecified, uncomplicated
CPT/HCPCS: 99214

== ENCOUNTER 2023-12-19 08:07 | Outpatient (AMB) | payer OTHER, SELFPAY ==
--- NOTE | 2023-12-19 08:22 | AM.OFFWIN_ITS ---
Intake Vital Signs 12/19/23 08:23 Height 5 ft 3 in Weight 138 lb BMI 24.4 BP 110/70 Blood Pressure Location Lt brachial Position Sitting Pulse 98 Pulse Source Pulse Oximeter Temp 97.0 F Temp Source Temporal Artery Scan Pulse Oximetry (%) 95 Oxygen Delivery Method Room Air Intake Visit Reasons: EP bug bite LT gill Intake Note: pt is here today for bug bit lft gill started sunday Patient Tobacco Use Status: Former Tobacco user Quit Date: 10/05/2022 Allergies ampicillin [Ampicillin] Allergy (Mild, Verified 12/19/23 08:26) DIARRHEA atorvastatin Allergy (Mild, Verified 12/19/23 08:26) Nausea Codeine Sulfate Allergy (Unknown, Verified 12/19/23 08:26) unknown codeine [Codeine] Adverse Reaction (Mild, Verified 12/19/23 08:26) NAUSEA & VOMITING fluoxetine Adverse Reaction (Mild, Verified 12/19/23 08:26) feeling unwell prednisone Adverse Reaction (Unknown, Verified 12/19/23 08:26) myalgia Penicillin V Potassium Allergy (Unknown, Uncoded 11/12/23 17:31) unknown Do you need a note to return to daycare/school/sports/work: No HPI EP bug bite LT gill HPI Details 58-year-old female patient presents toda with a bug bite and subsequent small rash on her left anterior gill. She states that she brushed a small black bug of her left lower leg this past Sunday. She thinks it may have been a small spider, but she is not sure. She developed a small, itchy papule at bite site and has a small rash surrounding it at this time. She denies any pain or fever. She reports the itching is most troublesome for her, particularly at night. [facility] Medical History Pure hypercholesterolemia Benign essential hypertension Left hand pain Smoker Anxiety Insomnia Allergic rhinitis Vitamin D deficiency Vitamin B12 deficiency Lumbar degenerative disc disease Hypothyroidism Hyperlipidemia Raynaud's disease Essential hypertension Surgical History History of left knee surgery History of cholecystectomy Family History Father No problems noted. Mother No problems noted. Sister Rheumatoid arthritis Sister Diabetes Brother No problems noted. Brother No problems noted. Brother No problems noted. 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 Cognitive needs: No Hearing needs: No Vision needs: Yes Review of Systems Const All systems reviewed & are unremarkable except as noted in HPI and below Physical Exam Vital Signs: Last Vital Signs Temp 97.0 F 12/19/23 08:23 Pulse 98 12/19/23 08:23 BP 110/70 12/19/23 08:23 Pulse Ox 95 12/19/23 08:23 Oxygen Delivery Method Room Air 12/19/23 08:23 BMI result Body Mass Index 24.4 Const General: cooperative and healthy appearing HEENT Head: Yes normal to inspection Neck Neck: Yes no lymphadenopathy Resp Effort & Inspection: normal respiratory effort Auscultation: clear to auscultation bilaterally Cardio Rate: regular rate Rhythm: regular rhythm Heart sounds: S1 normal heart sound present and S2 normal heart sound present Skin Other: small pruritic papule left lower anterior gill with approx 2cm erythematous rash surrounding bite site. No bullseye rash. No open areas. Extrem General: Yes capillary refill normal and Yes no clubbing, cyanosis or edema Psych Appearance: grossly normal Mental Status: mental status grossly normal Speech and movement: Normal speech and movement present Assessment & Plan Assessment & Plan (1) Insect bite of left lower leg: Code(s): S80.862A - Insect bite (nonvenomous), left lower leg, initial encounter; W57.XXXA - Bitten or stung by nonvenomous insect and other nonvenomous arthropods, initial encounter Qualifiers: Encounter type: initial encounter Qualified Code(s): S80.862A - Insect bite (nonvenomous), left lower leg, initial encounter; W57.XXXA - Bitten or stung by nonvenomous insect and other nonvenomous arthropods, initial encounter Plan: Started on a low potency betamethasone lotion/cream topically. Instructed on use of this. If she does not improve with treatment, or if symptoms worsen, such as increasing rash, development of pain, drainage, redness, warmth, fever/chills, she should return to the clinic for further evaluation. She trevor balizes understanding and agrees to plan. Medications: New betamethasone dipropionate 0.05% Apply to insect bite and rash twice a day until resolved. 1 appl topical BID PRN 15 grams 1RF skin irritation S80.862A - Insect bite (nonvenomous), left lower leg, initial encounter, W57.XXXA - Bitten or stung by nonvenomous insect and other nonvenomous arthropods, initial encounter Coding Level of Care Code Est Pt Level 4 (17109) Diagnoses Insect bite of left lower leg, initial encounter S80.862A; W57.XXXA Encounter type: initial encounter
[2023-12-19 08:23] VITALS: BP 110/70; PULSE 98; TEMP 36.1; O2SAT 95; BMI 24.4
== END 2023-12-19 09:02 | disposition home or self-care (01) ==
PROVIDERS: PCP Internal Medicine; Visit Provider Nurse Practitioner Family
DX: S80.862A Insect bite (nonvenomous), left lower leg, initial encounter (principal); W57.XXXA Bitten or stung by nonvenomous insect and other nonvenomous arthropods, initial encounter
CPT/HCPCS: 99214

== ENCOUNTER 2024-04-12 07:58 | Outpatient (REF) | payer OTHER, SELFPAY ==
[2024-04-12 11:00] LABS: Appearance Urine Clear; Color Urine Yellow; Glucose Urine UA Negative (Negative); Leukocyte Esterase Urine Negative (Negative); Nitrite Urine Negative (Negative); PH 7.5 (5.0-9.0); Urine Blood Negative (Negative); Urine Ketones Negative (Negative); Urine Protein Negative (Neg-Trace)
[2024-04-12 11:21] LABS: MANUAL DIFF FLAG NO
[2024-04-12 11:31] LABS: Basophils Percent Auto 0.5 % (0-2); Eosinophils Absolute Auto 0.1 X10*3/uL (0.0-0.4); Eosinophils Percent Auto 0.7 % (0-4); Hematocrit 45.6 % (37.0-47.0); Hemoglobin 15.5 g/dl (12.0-16.0); Imm Gran Abs Auto 0.03 X10*3/uL (0.00-0.03); Imm Gran Pct Auto 0.4 % (0.0-0.4); Lymphocytes Absolute Auto 1.1 X10*3/uL (1.2-4.9); Lymphocytes Percent Auto 13.4 % (20-40); Mean Corpuscular Hemoglobin 32.8 pg (27.0-33.0); Mean Corpuscular Volume 96.6 fL (80.0-98.0); Mean Platelet Volume 9.9 fL (9.4-12.3); Monocytes Percent Auto 12.3 % (2-11); Neutrophils Absolute Auto 5.8 x10*3/uL (2.0-8.3); Neutrophils Percent Auto 72.7 % (45-73); Platelet Count 366 X10*3/uL (160-400); Red Blood Count 4.72 X10*6/uL (4.20-5.50); Red Cell Distribution Width 14.8 % (11.0-16.0)
[2024-04-12 11:52] LABS: Alanine Aminotransferase 29 U/L (0-31); Albumin Level 4.6 g/dL (3.5-5.0); Alkaline Phosphatase 84 U/L (39-117); Anion Gap 15 (12-20); Aspartate Amino Transferase 27 U/L (5-31); Bilirubin Total 0.4 mg/dL (0.0-1.0); Blood Urea Nitrogen 10 mg/dL (9-16); Calcium 9.6 mg/dL (8.4-10.2); Carbon Dioxide 26 mmol/L (22-29); Chloride 103 mmol/L (96-108); Cholesterol 211 mg/dL (<200); Estimated Glomerular Filt Rate > 60; Glucose Fasting 104 mg/dL (60-99); HDL Cholesterol 86 mg/dL (>40); LDL Cholesterol Calculated 109 mg/dL (<100); Potassium 3.6 mmol/L (3.3-5.1); Sodium 140 mmol/L (135-145); Total Protein 8.1 g/dL (6.5-8.0); Triglycerides 83 mg/dL (<150)
[2024-04-12 11:59] LABS: Free T4 (Free Thyroxine) 1.12 ng/dL (0.71-1.85); Vitamin D 25-OH Total 49.6 ng/mL (>30)
== END 2024-04-12 07:59 | disposition home or self-care (01) ==
LOC: HO.HMGCLDS 07:58
PROVIDERS: PCP Internal Medicine; Visit Provider Internal Medicine
DX: D64.9 Anemia, unspecified (principal); E03.9 Hypothyroidism, unspecified; E78.00 Pure hypercholesterolemia, unspecified; E55.9 Vitamin D deficiency, unspecified; R30.0 Dysuria
CPT/HCPCS: 36415; 80053; 80061; 81003; 82306; 84439; 84443; 85025

== ENCOUNTER 2024-04-18 16:46 | Outpatient (AMB) | payer OTHER, SELFPAY ==
[2024-04-18 16:47] VITALS: BP 116/80; PULSE 99; O2SAT 98; BMI 24.0
--- NOTE | 2024-04-18 16:47 | A.OFFPC_ITS ---
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 Accompanied by: Self / Same As Patient Allergies ampicillin [Ampicillin] Allergy (Mild, Verified 04/18/24 17:17) DIARRHEA atorvastatin Allergy (Mild, Verified 04/18/24 17:17) Nausea Codeine Sulfate Allergy (Unknown, Verified 04/18/24 17:17) unknown codeine [Codeine] Adverse Reaction (Mild, Verified 04/18/24 17:17) NAUSEA & VOMITING fluoxetine Adverse Reaction (Mild, Verified 04/18/24 17:17) feeling unwell prednisone Adverse Reaction (Unknown, Verified 04/18/24 17:17) myalgia Penicillin V Potassium Allergy (Unknown, Uncoded 04/18/24 17:17) unknown Medication List - Last Reconciled 04/18/24 by Magen Bacon MD acetaminophen 325 mg PO QID PRN amlodipine 20 mg (2 x 10 mg) PO DAILY betamethasone dipropionate 0.05% 1 appl topical BID PRN cholecalciferol (vitamin D3) 25 mcg PO DAILY 90 days cyanocobalamin (vitamin B-12) 500 mcg PO DAILY levothyroxine 100 mcg PO DAILY loratadine 10 mg PO DAILY PRN multivitamin 1 tab PO DAILY 90 days rosuvastatin 5 mg PO DAILY 90 days Tobacco use date assessed: 04/18/24 Dental Screening Dental Screen Date: 04/18/24 Did you have a dental visit in the last 12 months?: No Did you have a dental problem in the last 6 months where you did not have access to dental care?: No Was dental information given to patient?: No HPI hyperlipidemia, Raynaud's disease, HTN, hypothy HPI Details Patient comes in today for her follow up visit States that she has been experiencing increasing pain over her neck lately Denies any recent injury or trauma to her neck Also reports that both of her hands feel sore often - thinks these may be due to arthritis She denies any headaches or dizziness Denies any chest pains, no increased SOB but she still has a recurrent cough - coughs up whitish phlegm at times No nausea/vomiting, no abdominal pain No change in bowel habits noted Had her follow up labs done last week - to discuss her results [facility] Medical History Pure hypercholesterolemia Benign essential hypertension Left hand pain Smoker Anxiety Insomnia Allergic rhinitis Vitamin D deficiency Vitamin B12 deficiency Lumbar degenerative disc disease Hypothyroidism Hyperlipidemia Raynaud's disease Essential hypertension Surgical History History of left knee surgery History of cholecystectomy Family History Father No problems noted. Mother No problems noted. Sister Rheumatoid arthritis Sister Diabetes Brother No problems noted. Brother No problems noted. Brother No problems noted. 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 1. Little interest or pleasure in doing things: not at all 2. Feeling down, depressed, or hopeless: not at all 3. Trouble falling or staying asleep, or sleeping too much: not at all 4. Feeling tired or having little energy: not at all 5. Poor appetite or overeating: not at all 6. Feeling bad about yourself - or that you are a failure or have let yourself or your family down: not at all 7. Trouble concentrating on things, such as reading the newspaper or watching t elevision: not at all 8. Moving or speaking so slowly that other people could have noticed. Or the opposite - being so fidgety or restless that you have been moving around a lot more than usual: not at all 9. Thoughts that you would be better off or of hurting yourself in some way: not at all Total score: 0 Depression Screening Interpretation: Negative Depression Screening Done: Yes 26576 - PHQ-9 Billing: Yes Source: Developed by Drs. Gildardo Yeung, Francy Nuñez, Heath Patricio and colleagues, with an educational billy from [employer]. Thrive Questionnaire Date Thrive assessed: 04/18/24 I am a: Patient What is your living situation today?: I have a steady place to live Within the past 12 months, did the food you bought not last and you didn't have the money to get more?: Never true Within the past 12 months, did you worry whether your food would run out before you got money to buy more?: Never true Do you have trouble paying for medicines?: No Do you have trouble getting transportation to medical appointments?: No Do you have trouble paying your heating and electricity bill?: No Do you have trouble taking care of your child, family member or friend?: No Do you have trouble with day-to-day activities such as bathing, preparing meals, shopping, managing finances, etc.?: No Are you currently unemployed and looking for a job?: No Are you interested in more education?: No Please select the resources that you would like help with: None Currently or been in a relationship where the following occur: No concerns reported THRIVE Score: 0 AUDIT C Alcohol Use Questionnaire (AUDIT-C) 1. How often do you have a drink containing alcohol?: Monthly or less 2. How many drinks containing alcohol do you have on a typical day when you are drinking?: 1 or 2 3. How often do you have six or more drinks on one occasion?: Never Total Score: 1 Score Reviewed/Action Taken: Yes THALIA-7 AMB Questionnaire THALIA-7 Date THALIA - 7 assessed: 04/18/24 Feeling nervous, anxious, or on edge: 0 = Not at all Not being able to stop or control worryin = Not at all Worrying too much about different things: 0 = Not at all Trouble relaxin = Not at all Being so restless that it is hard to sit still: 0 = Not at all Becoming easily annoyed or irritable: 0 = Not at all Feeling afraid as if something awful might happen: 0 = Not at all Total THALIA-7 score (0-4 normal; 5-9 mild; 10-14 moderate; 15-21 severe): 0 Source: Developed by Drs. Gildardo Yeung, Francy Nuñez, Heath Patricio and colleagues, with an educational billy from [employer]. Review of Systems Const Denies chills, Denies fatigue, Denies fever(s) and Denies headache(s) ENT Denies dysphagia, Denies dizziness, Denies otalgia, Denies headache(s), Reports neck pain (increased lately), Denies odynophagia and Denies sore throat Card Denies chest pain, Denies palpitations and Denies dyspnea Resp Denies chest congestion, Reports cough (on and off, coughs up minimal whitish phlegm at times), Denies dyspnea and Denies wheezing GI Denies abdominal pain, Denies constipation, Denies dysphagia, Denies heartburn, Denies diarrhea, Denies nausea, Denies odynophagia and Denies vomiting Denies difficulty voiding, Denies nocturia, Denies dysuria and Denies urinary urgency Musc Reports back pain (over the lower back; also (+) pain over her tailbone but better lately), Reports arthralgias (especially in her hands, worse when weather is cold) and Reports neck pain (increased lately) Skin/Breast Denies rash Neuro Denies dizziness and Denies headache(s) Endo Denies fatigue and Denies palpitations Aller/Immun Denies wheezing Physical exam (Primary Care) Vital Signs: Last Vital Signs Pulse 99 04/18/24 16:47 BP 116/80 04/18/24 16:47 Pulse Ox 98 04/18/24 16:47 Oxygen Delivery Method Room Air 04/18/24 16:47 BMI result Body Mass Index 24.0 Tobacco/Smoking Status: Tobacco use Status Tobacco use date assessed 04/18/24 04/18/24 16:48 Patient Tobacco Use Status Former Tobacco user 04/18/24 16:48 e-Cigarette/Vaping Use Never Used 04/18/24 16:48 PHQ-9: PHQ-9 Score PHQ-9: Total score 0 04/18/24 17:23 Depression Screening Interpretation: Negative Thrive Assessment: Date of Thrive Assessment Date Thrive assessed 04/18/24 04/18/24 16:48 Currently or been in a relationship where the following occur: No concerns reported Const General: no acute distress and alert HENMT Ears: TM's normal bilaterally and EAC's normal Throat: Yes posterior oropharynx normal and Yes tonsils normal (no TP congestion noted) Neck Neck: Yes no lymphadenopathy and Yes supple Thyroid: Thyroid normal Resp Auscultation: no rales, rhonchi (occasional) throughout, no wheezes and diminished lung sounds bilateral Cardio Rate: regular rate Rhythm: regular rhythm Heart sounds: no murmurs GI Palpation (GI): Soft to palpation and nontender Auscultation: normal bowel sounds General: Yes no CVA tenderness Back/Spine/Pelvis Back: no CVA tenderness Cervical Spine: Cervical spine tenderness Thoracic/Lumbar Spine: lumbar spinal tenderness Skin Rashes: no rashes Extrem General: Yes no clubbing, cyanosis or edema Right upper extremity: Extremity exam: right hand Details: tenderness and no swelling Left upper extremity: hand Details: tenderness and no swelling Results Reviewed Results Reviewed: Laboratory Tests 04/12/24 08:00 WBC 8.0 Hgb 15.5 Hct 45.6 Plt Count 366 Sodium 140 Potassium 3.6 Creatinine 0.75 Estimated GFR > 60 Fasting Glucose 104 H Calcium 9.6 AST 27 ALT 29 Triglycerides 83 Cholesterol 211 H LDL Cholesterol, Calc 109 H HDL Cholesterol 86 25-OH Vitamin D Total 49.6 TSH 0.70 Free T4 1.12 Ur Specific [place] 1.010 Urine Protein Negative Urine Glucose (UA) Negative Urine Blood Negative Urine Nitrite Negative Ur Leukocyte Esterase Negative Assessment and Plan Assessment & Plan (1) Benign essential hypertension: Code(s): I10 - Essential (primary) hypertension Plan: Reinforced low-sodium diet - goal is systolic BP of at least 120 to 130 mm or less She was taking Amlodipine 10 mg QD mostly just in the winter time in the past primarily for her Raynaud's symptoms as this also helps control her blood pressure but she is now on Amlodipine 20 mg QD regularly due to the progression of her Raynaud's syndrome She is instructed to continue monitoring her blood pressure regularly (2) Raynaud's disease: Comment: Onset 09/2010 Code(s): I73.00 - Raynaud's syndrome without gangrene Qualifiers: Raynaud?s-associated gangrene presence: without gangrene Qualified Code(s): I73.00 - Raynaud's syndrome without gangrene Plan: Continue Amlodipine 20 mg QD She is also using Nitroglycerin ointment 2% Q 6 hours on her hands as needed for symptomatic relief Reinforced avoidance of extremes of temperature to minimize her symptoms; patient was able to quit smoking last year in September 2022 but admits that she is still smoking occasionally Follow up with rheumatology as scheduled (3) Pure hypercholesterolemia: Code(s): E78.00 - Pure hypercholesterolemia, unspecified Plan: Results of her labs done last week reviewed and discussed with patient - her cholesterol has increased slightly from previous Reinforced low cholesterol diet - patient admits to poor compliance with her diet over the past few months Will go ahead and increase her Rosuvastatin to 10 mg QD Will recheck her labs and fasting lipids in 4 months for follow-up (4) Hypothyroidism: Code(s): E03.9 - Hypothyroidism, unspecified Qualifiers: Hypothyroidism type: acquired Qualified Code(s): E03.9 - Hypothyroidism, unspecified Plan: Her TFTs remain normal on her recent labs Continue Levothyroxine 100 mcg QD (5) Vitamin B12 deficiency: Code(s): E53.8 - Deficiency of other specified B group vitamins Plan: Continue Vitamin B12 tablets 500 mcg QD (6) Vitamin D deficiency: Code(s): E55.9 - Vitamin D deficiency, unspecified Plan: Continue OTC Vitamin-D3 capsules 1000 units QD (7) Lumbar degenerative disc disease: Code(s): M51.36 - Other intervertebral disc degeneration, lumbar region Plan: Reinforced activity and weight lifting restrictions Repeat lumbar spine x-rays done back in October 2022 revealed (+) degenerative disc disease and spondylosis at L4-L5 and lower lumbar spine facet arthritis Continue Acetaminophen 325 mg 1-2 tablets Q 6 hours as needed for pain (8) Arthralgia: Code(s): M25.50 - Pain in unspecified joint Qualifiers: Joint pain location: unspecified Qualified Code(s): M25.50 - Pain in unspecified joint Plan: Involving multiple joints, including both hands - are most likely due to OA Will send her for x-rays of both hands for further evaluation Follow up with rheumatology as scheduled (9) Neck pain: Code(s): M54.2 - Cervicalgia Plan: Will send her for cervical spine x-rays for further evaluation (10) Allergic rhinitis: Code(s): J30.9 - Allergic rhinitis, unspecified Qualifiers: Allergic rhinitis seasonality: unspecified Allergic rhinitis trigger: unspecified Qualified Code(s): J30.9 - Allergic rhinitis, unspecified Plan: Continue OTC Loratadine tablet 10 mg QD PRN (11) Insomnia: Code(s): G47.00 - Insomnia, unspecified Qualifiers: Insomnia type: unspecified Qualified Code(s): G47.00 - Insomnia, unspecified Plan: Sleep hygiene reinforced She was on Trazodone 50 mg 1 to 2 tablets daily at bedtime as needed previously but patient stopped taking this a few months ago Advised that she can try taking this again if she continues to struggle with sleeping at night and can just take this on an as-needed basis (12) Smoker: Code(s): F17.200 - Nicotine dependence, unspecified, uncomplicated Plan: Counseled again on smoking cessation She was able to quit smoking in September 2022 but admits that she has been smoking on and off again lately Rheumatology has suggested that she may be a candidate for the lung cancer screening program here at [facility] due to her significant smoking history - will look into whether patient qualifies for the program at this time and if she does, will refer her for lung cancer screening Have also discussed with patient that based on how her lungs sound on exam/auscultation today, she likely has COPD and will also consider referring her to pulmonary medicine in the future Plan Follow up in 4 months Orders: Orders XR hand LT min 3V 04/18/24 M79.641 - Pain in right hand, M79.642 - Pain in left hand Complete Blood Count Auto Diff 4 Months D64.9 - Anemia, unspecified Lipid Panel 4 Months E78.00 - Pure hypercholesterolemia, unspecified Thyroid Stimulating Hormone 4 Months E03.9 - Hypothyroidism, unspecified UA CC w/rflx Micro + Cult 4 Months R30.0 - Dysuria Vitamin D 25-OH Total 4 Months E55.9 - Vitamin D deficiency, unspecified XR cervical spine 3V 04/18/24 M54.2 - Cervicalgia XR hand RT min 3V 04/18/24 M79.641 - Pain in right hand, M79.642 - Pain in left hand Comprehensive [place]. Panel Fast 4 Months E78.00 - Pure hypercholesterolemia, unspecified Free T4 (Free Thyroxine) 4 Months E03.9 - Hypothyroidism, unspecified Medications: Changed From rosuvastatin 5 mg PO DAILY 90 days 90 tabs 1RF To rosuvastatin 10 mg PO DAILY 90 tabs 1RF 90 days Coding Level of Care Code Est Pt Level 4 (27619) Diagnoses Benign essential hypertension I10 Raynaud's disease without gangrene I73.00 Raynaud?s-associated gangrene presence: without gangrene Pure hypercholesterolemia E78.00 Acquired hypothyroidism E03.9 Hypothyroidism type: acquired Vitamin B12 deficiency E53.8 Vitamin D deficiency E55.9 Lumbar degenerative disc disease M51.36 Arthralgia, unspecified joint M25.50 Joint pain location: unspecified Neck pain M54.2 Allergic rhinitis, unspecified seasonality, unspecified trigger J30.9 Allergic rhinitis seasonality: unspecified Allergic rhinitis trigger: unspecified Insomnia, unspecified type G47.00 Insomnia type: unspecified Smoker F17.200
== END 2024-04-18 17:37 | disposition home or self-care (01) ==
PROVIDERS: PCP Internal Medicine; Visit Provider Internal Medicine
DX: I10 Essential (primary) hypertension (principal); I73.00 Raynaud's syndrome without gangrene; E78.00 Pure hypercholesterolemia, unspecified; E03.9 Hypothyroidism, unspecified; E53.8 Deficiency of other specified B group vitamins; E55.9 Vitamin D deficiency, unspecified; M51.36 Other intervertebral disc degeneration, lumbar region; M25.50 Pain in unspecified joint; M54.2 Cervicalgia; J30.9 Allergic rhinitis, unspecified; G47.00 Insomnia, unspecified; F17.200 Nicotine dependence, unspecified, uncomplicated

== ENCOUNTER → 2024-04-18 16:46 | Outpatient (BNVA) | payer OTHER, SELFPAY | PROVIDERS: PCP Internal Medicine; Visit Provider Internal Medicine | DX: I10 Essential (primary) hypertension (principal); I73.00 Raynaud's syndrome without gangrene; E78.00 Pure hypercholesterolemia, unspecified; E03.9 Hypothyroidism, unspecified; E53.8 Deficiency of other specified B group vitamins; E55.9 Vitamin D deficiency, unspecified; M54.2 Cervicalgia; M51.36 Other intervertebral disc degeneration, lumbar region; J30.9 Allergic rhinitis, unspecified | CPT/HCPCS: 99212 ==

== ENCOUNTER 2024-04-26 08:36 | Outpatient (REF) | payer OTHER, SELFPAY ==
--- NOTE | ~2024-04-26 | XR_ITS ---
EXAMINATION: XR CERVICAL SPINE 3 VIEWS CLINICAL INFORMATION: Cervicalgia M54.2. COMPARISON: None available TECHNIQUE: 3 views of the cervical spine were obtained. FINDINGS: There are no prevertebral soft tissue abnormalities demonstrated. No compression fractures or subluxations are identified. Alignment is maintained at the atlanto-axial articulation. Degenerative changes with disc space narrowing and osteophyte formation is seen at C5/6. Posterior facet joint arthropathy is seen bilaterally within the cervical spine. The prevertebral soft tissues are normal. The foramina are patent. XR/XR cervical spine 3V IMPRESSION: Degenerative disc disease at C5/6. Posterior facet joint arthropathy. Electronically signed by: Manuel Hein MD 07/07/2024 07:17 PM EST
== END 2024-04-26 08:37 | disposition home or self-care (01) ==
LOC: HO.HMGCX 08:36
PROVIDERS: PCP Internal Medicine; Visit Provider Internal Medicine
DX: M54.2 Cervicalgia (principal); M79.641 Pain in right hand; M79.642 Pain in left hand
CPT/HCPCS: 72040; 73130

== ENCOUNTER 2024-07-09 15:52 | Outpatient (AMB) | payer OTHER, SELFPAY ==
--- NOTE | 2024-07-09 15:54 | A.OFFVIS_ITS ---
Vital Signs 07/09/24 15:58 Height 5 ft 3 in Weight 130 lb 1.164 oz BMI 23.0 BP 120/60 Blood Pressure Location Rt brachial Position Sitting Pulse 90 Pulse Source Pulse Oximeter Pulse Oximetry (%) 94 Oxygen Delivery Method Room Air Intake Visit Reasons: Reynaud's Intake Note: Patient presents for Reynaud's. Allergies ampicillin [Ampicillin] Allergy (Mild, Verified 07/09/24 15:58) DIARRHEA atorvastatin Allergy (Mild, Verified 07/09/24 15:58) Nausea Codeine Sulfate Allergy (Unknown, Verified 07/09/24 15:58) unknown codeine [Codeine] Adverse Reaction (Mild, Verified 07/09/24 15:58) NAUSEA & VOMITING fluoxetine Adverse Reaction (Mild, Verified 07/09/24 15:58) feeling unwell prednisone Adverse Reaction (Unknown, Verified 07/09/24 15:58) myalgia Penicillin V Potassium Allergy (Unknown, Uncoded 04/18/24 17:17) unknown Medication List - Last Reconciled 07/09/24 by Tania Sorto MD acetaminophen 325 mg PO QID PRN amlodipine 20 mg (2 x 10 mg) PO DAILY betamethasone dipropionate 0.05% 1 appl topical BID PRN cholecalciferol (vitamin D3) 25 mcg PO DAILY 90 days cyanocobalamin (vitamin B-12) 500 mcg PO DAILY levothyroxine 100 mcg PO DAILY loratadine 10 mg PO DAILY PRN multivitamin 1 tab PO DAILY 90 days rosuvastatin 10 mg PO DAILY 90 days HPI Comments Details: 58-year-old female with Raynaud's returns for follow-up. Patient is doing well overall. She states that her Raynaud's has been well controlled recently. She states that having a space heater at work have made a world of difference for her. She wears 2 coats at work. Continues to take amlodipine 20 mg daily. She went back to smoking. She smokes about 6 cigarettes a day.. Initial history: This is a 56 year old female with a past medical history of Raynaud's who presents for Raynaud's evaluation. Patient stated that she started having Raynaud's since 09/2010 when she was admitted to [facility] with significant ischemia. Patient stated that she was started on blood thinners while admitted. She had an angiogram which showed bilateral distal are ulnar artery stenosis. Patient denies getting a vascular intervention. Over the years patient has been using amlodipine initially it was 5 mg in the summer and 10 mg in winter. More recently she has been on 10 mg daily. Patient states that her Raynaud's has become worse this winter especially affecting her right hand. Right index finger is most affected. It has remained blue. She has a superficial wound that is nonhealing. She states that her feet and toes are okay now. 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 She is usually pretty warm at home and in her truck as she keeps everything warm. Patient initially quit smoking when diagnosed with Raynaud's however she has returned to smoking. She continues to smoke 10 cigarettes a day. She denies any worsening shortness of breath. Denies GERD. Denies any other skin changes. She has had eye dryness for years. She uses artificial tears 3 times a day and uses ointment once a week. She does not use prescription eyedrops. Denies any significant dry mouth. Denies dysphagia. [facility] Medical History Pure hypercholesterolemia Benign essential hypertension Left hand pain Smoker Anxiety Insomnia Allergic rhinitis Vitamin D deficiency Vitamin B12 deficiency Lumbar degenerative disc disease Hypothyroidism Hyperlipidemia Raynaud's disease Essential hypertension Surgical History History of left knee surgery History of cholecystectomy Family History Father No problems noted. Mother No problems noted. Sister Rheumatoid arthritis Sister Diabetes Brother No problems noted. Brother No problems noted. Brother No problems noted. 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 Cognitive needs: No Hearing needs: No Vision needs: Yes Review of Systems Skin/Breast Denies non-healing lesions, Denies skin ulcer and Denies wounds Physical Exam Vital Signs: Last Vital Signs Pulse 90 07/09/24 15:58 BP 120/60 07/09/24 15:58 Pulse Ox 94 07/09/24 15:58 Oxygen Delivery Method Room Air 07/09/24 15:58 BMI result Body Mass Index 23.0 Const General: cooperative, healthy appearing and comfortable Nutritional Appearance: average body habitus and well nourished Limitations: no limitations HEENT Head: Yes normocephalic and Yes atraumatic Mouth: moist mucous membranes Resp Effort & Inspection: normal respiratory effort and able to speak in complete sentences Auscultation: rhonchi and wheezes Extrem Other: Mild osteoarthritic changes of both hands with no active synovitis Mildly abnormal nailfold capillaroscopy in the right 3rd finger with some dilated loops Bilateral finger clubbing tapered fingertips throughout Fingers are warm today, no bluish discoloration of her fingers No cracked skin or ulcers on her digits Trace pitting edema bilaterally Assessment & Plan Assessment & Plan (1) Raynaud's disease: Comment: Onset 09/2010 Code(s): I73.00 - Raynaud's syndrome without gangrene Category: Medical Qualifiers: Raynaud?s-associated gangrene presence: without gangrene Qualified Code(s): I73.00 - Raynaud's syndrome without gangrene Plan: 57-year-old female with Raynaud's returns for follow-up. In 09/2010, she was admitted to [facility] with significant ischemia.? Patient stated that she was started on blood thinners while admitted.? She had an angiogram which showed bilateral distal ulnar artery stenosis. Per patient she did not get a vascular intervention. Patient's Raynaud has been well controlled recently. On amlodipine 20 mg daily. Patient could not tolerate fluoxetine. Plan: 1-stop smoking. Counseled patient 2-continue amlodipine 20 mg daily. She has some pitting edema of her legs which is potentially a side effect of amlodipine, symptoms not severe. Advised patient to elevate her legs as much as possible and wear compression stockings. 3- continue to use the space heater at work. 4-keep core and extremity temperature warm. Continue to wear gloves. Follow-up in 1 year Plan I spent 15 minutes reviewing patient's chart, evaluating patient, counseling patient and documenting in the chart Coding Level of Care Code Est Pt Level 3 (59084) Diagnoses Raynaud's disease without gangrene I73.00 Raynaud?s-associated gangrene presence: without gangrene
[2024-07-09 15:58] VITALS: BP 120/60; PULSE 90; O2SAT 94; BMI 23.0
== END 2024-07-09 16:14 | disposition home or self-care (01) ==
PROVIDERS: PCP Internal Medicine; Visit Provider Student in an Organized Health Care Education/Training Program
DX: I73.00 Raynaud's syndrome without gangrene (principal)
CPT/HCPCS: 99213

== ENCOUNTER → 2024-07-09 15:52 | Outpatient (BNVA) | payer OTHER, SELFPAY | PROVIDERS: PCP Internal Medicine; Visit Provider Student in an Organized Health Care Education/Training Program | DX: I73.00 Raynaud's syndrome without gangrene (principal) | CPT/HCPCS: 99212 ==

== ENCOUNTER 2024-09-20 09:10 | Outpatient (REF) | payer OTHER, SELFPAY ==
--- OUTSIDE RECORDS SUMMARY | 2024-09-20 09:13 | XMS_ITS | Clinical Summary ---
Author Organization [facility] Address [address] [place] [address] Care Team Providers Care Office 365 Consultant Name Role Phone Unavailable Primary Care Provider Unavailabl e Social History Tobacco Use Types Packs/Day Years Used Date Smoking Tobacco: Never Assessed Comments Unknown Sex and Gender Information Value Date Recorded Sex Assigned at Not on file Legal Sex Female 8:39 PM EST Gender Identity Not on file Sexual Orientation Not on file Plan of Treatment Health Maintenance Due Date Last Done Comments Breast Cancer Screening 1966 DTaP,Tdap,and Td Vaccines (1 - Tdap) 1985 Hepatitis B Vaccines (1 of 3 - 19+ 3-dose series) 1985 Cervical Cancer Screening: P ap Smear 12/18/1987 Pneumococcal Vaccine: 50+ Ye ars (1 of 1 - PCV) 2016 Zoster Vaccines (1 of 2) 2016 Colorectal Cancer Screening: Colonoscopy 08/17/2023 Depression Screening 08/17/2023 HIV Screening 08/17/2023 Hepatitis C Screening 08/17/2023 Social Influencers of Health Screening 08/17/2023 COVID-19 Vaccine (1 - 2023-2 5 season) 2024 Influenza Vaccine (#1) 2024 HIB Vaccines Aged Out No longer eligi ble based on patient's age to complete this topic HPV Vaccines Aged Out No longer eligi ble based on patient's age to complete this topic Hepatitis A Vaccines Aged Out No long er eligible based on patient's age to complete this topic IPV Vaccines Aged Out No longer eligi ble based on patient's age to complete this topic MMR Vaccines Aged Out No longer eligi ble based on patient's age to complete this topic Meningococcal ACWY Vaccine Aged Out N o longer eligible based on patient's age to complete this topic Meningococcal B Vacine Aged Out No lo nger eligible based on patient's age to complete this topic Pneumococcal Vaccine: Pediat rics (0 to 5 Years) and At-Risk Patients (6 to 64 Years) Aged Out No longer eligible b ased on patient's age to complete this topic RSV Immunization Patients Un arnav 20 months Aged Out No longer eligible b ased on patient's age to complete this topic Varicella Vaccines Aged Out No longer eligible based on patient's age to complete this topic
[2024-09-20 11:46] LABS: MANUAL DIFF FLAG NO
[2024-09-20 11:53] LABS: Basophils Percent Auto 0.3 % (0-2); Eosinophils Absolute Auto 0.1 X10*3/uL (0.0-0.4); Hematocrit 45.2 % (37.0-47.0); Hemoglobin 15.4 g/dl (12.0-16.0); Imm Gran Abs Auto 0.01 X10*3/uL (0.00-0.03); Imm Gran Pct Auto 0.1 % (0.0-0.4); Lymphocytes Absolute Auto 1.1 X10*3/uL (1.2-4.9); Lymphocytes Percent Auto 15.1 % (20-40); Mean Corpuscular HGB Conc 34.1 g/dl (31.0-35.0); Mean Corpuscular Hemoglobin 32.6 pg (27.0-33.0); Mean Corpuscular Volume 95.6 fL (80.0-98.0); Monocytes Absolute Auto 0.8 X10*3/uL (0.1-1.2); Monocytes Percent Auto 12.1 % (2-11); Neutrophils Percent Auto 71.4 % (45-73); Platelet Count 342 X10*3/uL (160-400); Red Blood Count 4.73 X10*6/uL (4.20-5.50); Red Cell Distribution Width 15.5 % (11.0-16.0); White Blood Count 6.9 X10*3/uL (4.8-10.8)
[2024-09-20 11:57] LABS: Appearance Urine Clear; Color Urine Yellow; Glucose Urine UA Negative (Negative); Leukocyte Esterase Urine Trace (Negative); Nitrite Urine Negative (Negative); PH 7.5 (5.0-9.0); UMIC TRIGGER UACC YES; Urine Blood Negative (Negative); Urine Ketones Negative (Negative); Urine Protein Negative (Neg-Trace)
[2024-09-20 12:01] LABS: Bacteria Urine None Seen (None Seen); Hyaline Casts Urine 0-2 /LPF (0-2); RBC Urine 0-2 /HPF (0-2); WBC Urine 0-5 /HPF (0-5)
[2024-09-20 12:19] LABS: Alanine Aminotransferase 25 U/L (0-31); Albumin Level 4.3 g/dL (3.5-5.0); Anion Gap 16 (12-20); Aspartate Amino Transferase 29 U/L (5-31); Bilirubin Total 0.5 mg/dL (0.0-1.0); Blood Urea Nitrogen 10 mg/dL (9-16); Calcium 9.9 mg/dL (8.4-10.2); Carbon Dioxide 24 mmol/L (22-29); Chloride 106 mmol/L (96-108); Cholesterol 172 mg/dL (<200); Estimated Glomerular Filt Rate > 60; Glucose Fasting 96 mg/dL (60-99); HDL Cholesterol 83 mg/dL (>40); LDL Cholesterol Calculated 79 mg/dL (<100); Potassium 3.8 mmol/L (3.3-5.1); Sodium 142 mmol/L (135-145); Total Protein 8.1 g/dL (6.5-8.0); Triglycerides 53 mg/dL (<150)
[2024-09-20 12:27] LABS: Free T4 (Free Thyroxine) 1.16 ng/dL (0.71-1.85); Vitamin D 25-OH Total 40.7 ng/mL (>30)
[2024-09-20 12:41] LABS: Alkaline Phosphatase 89 U/L (39-117)
== END 2024-09-20 09:11 | disposition home or self-care (01) ==
LOC: HO.HMGCLDS 09:10
PROVIDERS: PCP Internal Medicine; Visit Provider Internal Medicine
DX: D64.9 Anemia, unspecified (principal); E03.9 Hypothyroidism, unspecified; E55.9 Vitamin D deficiency, unspecified; E78.00 Pure hypercholesterolemia, unspecified
CPT/HCPCS: 36415; 80053; 80061; 81001; 82306; 84439; 84443; 85025

== ENCOUNTER 2024-09-23 17:18 | Outpatient (AMB) | payer OTHER, SELFPAY ==
[2024-09-23 17:37] VITALS: BP 126/66; PULSE 80; TEMP 36.3; O2SAT 93; BMI 22.7
--- NOTE | 2024-09-23 17:37 | MHC.PC.OV ---
Vital Signs 09/23/24 17:37 Height 5 ft 3 in Weight 128 lb 2 oz BMI 22.7 BP 126/66 Blood Pressure Location Lt brachial Position Sitting Pulse 80 Pulse Source Pulse Oximeter Temp 97.3 F Temp Source Temporal Artery Scan Pulse Oximetry (%) 93 Oxygen Delivery Method Room Air Intake Visit Reasons: 4 month f/u Color Separation Photographer Required: No Accompanied by: Self / Same As Patient Allergies ampicillin [Ampicillin] Allergy (Mild, Verified 09/23/24 18:02) DIARRHEA atorvastatin Allergy (Mild, Verified 09/23/24 18:02) Nausea Codeine Sulfate Allergy (Unknown, Verified 09/23/24 18:02) unknown codeine [Codeine] Adverse Reaction (Mild, Verified 09/23/24 18:02) NAUSEA & VOMITING fluoxetine Adverse Reaction (Mild, Verified 09/23/24 18:02) feeling unwell prednisone Adverse Reaction (Unknown, Verified 09/23/24 18:02) myalgia Penicillin V Potassium Allergy (Unknown, Uncoded 09/23/24 18:02) unknown Medication List - Last Reconciled 09/23/24 by Magen Bacon MD acetaminophen 325 mg PO QID PRN amlodipine 20 mg (2 x 10 mg) PO DAILY cholecalciferol (vitamin D3) 25 mcg PO DAILY 90 days cyanocobalamin (vitamin B-12) 500 mcg PO DAILY levothyroxine 100 mcg PO DAILY loratadine 10 mg PO DAILY PRN multivitamin 1 tab PO DAILY 90 days rosuvastatin 10 mg PO DAILY 90 days Tobacco use date assessed: 09/23/24 Dental Screening Dental Screen Date: 09/23/24 Did you have a dental visit in the last 12 months?: No Did you have a dental problem in the last 6 months where you did not have access to dental care?: No HPI 4 month f/u HPI Details Patient comes in today for her follow up visit States that she feels okay She denies any headaches or dizziness Denies any chest pains, no SOB No nausea/vomiting, no abdominal pain No change in bowel habits noted She had her follow up labs done a few days ago - to discuss her results [facility] Medical History (Updated 09/23/24 @ 19:20 by Magen Bacon MD) Cervical disc disease Pure hypercholesterolemia Benign essential hypertension Left hand pain Smoker Anxiety Insomnia Allergic rhinitis Vitamin D deficiency Vitamin B12 deficiency Lumbar degenerative disc disease Hypothyroidism Hyperlipidemia Raynaud's disease Essential hypertension Surgical History History of left knee surgery History of cholecystectomy Family History Father No problems noted. Mother No problems noted. Sister Rheumatoid arthritis Sister Diabetes Brother No problems noted. Brother No problems noted. Brother No problems noted. 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 1. Little interest or pleasure in doing things: not at all 2. Feeling down, depressed, or hopeless: not at all 3. Trouble falling or staying asleep, or sleeping too much: not at all 4. Feeling tired or having little energy: not at all 5. Poor appetite or overeating: not at all 6. Feeling bad about yourself - or that you are a failure or have let yourself or your family down: not at all 7. Trouble concentrating on things, such as reading the newspaper or watching television: not at all 8. Moving or speaking so slowly that other people could have noticed. Or the opposite - being so fidgety or restless that you have been moving around a lot more than usual: not at all 9. Thoughts that you would be better off or of hurting yourself in some way: not at all Total score: 0 Depression Screening Interpretation: Negative Depression Screening Done: Yes 59081 - PHQ-9 Billing: Yes Source: Developed by Drs. Gildardo Yeung, Francy Nuñez, Heath Patricio and colleagues, with an educational billy from [employer]. Thrive Questionnaire Date Thrive assessed: 09/23/24 I am a: Patient What is your living situation today?: I have a steady place to live Within the past 12 months, did the food you bought not last and you didn't have the money to get more?: Never true Within the past 12 months, did you worry whether your food would run out before you got money to buy more?: Never true Do you have trouble paying for medicines?: No Do you have trouble getting transportation to medical appointments?: No Do you have trouble paying your heating and electricity bill?: No Do you have trouble taking care of your child, family member or friend?: No Do you have trouble with day-to-day activities such as bathing, preparing meals, shopping, managing finances, etc.?: No Are you currently unemployed and looking for a job?: No Are you interested in more education?: No Please select the resources that you would like help with: None Currently or been in a relationship where the following occur: No concerns reported THRIVE Score: 0 AUDIT C Alcohol Use Questionnaire (AUDIT-C) 1. How often do you have a drink containing alcohol?: Monthly or less 2. How many drinks containing alcohol do you have on a typical day when you are drinking?: 1 or 2 3. How often do you have six or more drinks on one occasion?: Less than monthly Total Score: 2 Score Reviewed/Action Taken: Yes THALIA-7 AMB Questionnaire THALIA-7 Date THALIA - 7 assessed: 09/23/24 Feeling nervous, anxious, or on edge: 0 = Not at all Not being able to stop or control worryin = Not at all Worrying too much about different things: 0 = Not at all Trouble relaxin = Not at all Being so restless that it is hard to sit still: 0 = Not at all Becoming easily annoyed or irritable: 0 = Not at all Feeling afraid as if something awful might happen: 0 = Not at all Total THALIA-7 score (0-4 normal; 5-9 mild; 10-14 moderate; 15-21 severe): 0 Source: Developed by Drs. Gildardo Yeung, Francy Nuñez, Heath Patricio and colleagues, with an educational billy from [employer]. Review of Systems Const Denies chills, Denies fatigue, Denies fever(s) and Denies headache(s) ENT Denies dysphagia, Denies dizziness, Denies otalgia, Denies headache(s), Reports neck pain (increased lately), Denies odynophagia and Denies sore throat Card Denies chest pain, Denies palpitations and Denies dyspnea Resp Denies chest congestion, Reports cough (on and off, coughs up minimal whitish phlegm at times), Denies dyspnea and Denies wheezing GI Denies abdominal pain, Denies constipation, Denies dysphagia, Denies heartburn, Denies diarrhea, Denies nausea, Denies odynophagia and Denies vomiting Denies difficulty voiding, Denies nocturia, Denies dysuria and Denies urinary urgency Musc Reports back pain (over the lower back; also (+) pain over her tailbone but better lately), Reports arthralgias (especially in her hands, worse when weather is cold) and Reports neck pain (increased lately) Skin/Breast Denies rash Neuro Denies dizziness and Denies headache(s) Endo Denies fatigue and Denies palpitations Aller/Immun Denies wheezing Physical exam (Primary Care) Vital Signs: Last Vital Signs Temp 97.3 F 09/23/24 17:37 Pulse 80 09/23/24 17:37 BP 126/66 09/23/24 17:37 Pulse Ox 93 09/23/24 17:37 Oxygen Delivery Method Room Air 09/23/24 17:37 BMI result Body Mass Index 22.7 Tobacco/Smoking Status: Tobacco use Status Tobacco use date assessed 09/23/24 09/23/24 17:50 Patient Tobacco Use Status Current everyday Tobacco 09/23/24 17:50 e-Cigarette/Vaping Use Never Used 09/23/24 17:50 PHQ-9: PHQ-9 Score PHQ-9: Total score 0 09/23/24 18:09 Depression Screening Interpretation: Negative Thrive Assessment: Date of Thrive Assessment Date Thrive assessed 09/23/24 09/23/24 17:50 Currently or been in a relationship where the following occur: No concerns reported Const General: no acute distress and alert HENMT Ears: TM's normal bilaterally and EAC's normal Throat: Yes posterior oropharynx normal and Yes tonsils normal (no TP congestion noted) Neck Neck: Yes supple and No lymphadenopathy Thyroid: Thyroid normal Resp Auscultation: no rales, rhonchi (occasional) throughout, no wheezes and diminished lung sounds bilateral Cardio Rate: regular rate Rhythm: regular rhythm Heart sounds: no murmurs GI Palpation (GI): Soft to palpation and nontender Auscultation: normal bowel sounds General: Yes no CVA tenderness Back/Spine/Pelvis Back: no CVA tenderness Cervical Spine: Cervical spine tenderness Thoracic/Lumbar Spine: lumbar spinal tenderness Skin Rashes: no rashes Extrem General: Yes no clubbing, cyanosis or edema Right upper extremity: Extremity exam: right hand Details: tenderness and no swelling Left upper extremity: hand Details: tenderness and no swelling Results Reviewed Results Reviewed: Laboratory Tests 09/20/24 09:29 WBC 6.9 Hgb 15.4 Hct 45.2 Plt Count 342 Sodium 142 Potassium 3.8 Creatinine 0.71 Estimated GFR > 60 Fasting Glucose 96 Calcium 9.9 AST 29 ALT 25 Triglycerides 53 Cholesterol 172 LDL Cholesterol, Calc 79 HDL Cholesterol 83 25-OH Vitamin D Total 40.7 TSH 0.60 Free T4 1.16 Ur Specific Bonita 1.010 Urine Protein Negative Urine Glucose (UA) Negative Urine Blood Negative Urine Nitrite Negative Ur Leukocyte Esterase Trace H Coding Level of Care Code Est Pt Level 4 (19154) Diagnoses Essential hypertension I10 Raynaud's disease without gangrene I73.00 Raynaud?s-associated gangrene presence: without gangrene Pure hypercholesterolemia E78.00 Acquired hypothyroidism E03.9 Hypothyroidism type: acquired Vitamin B12 deficiency E53.8 Vitamin D deficiency E55.9 Degeneration of intervertebral disc of lumbar region with discogenic back pain M51.360 Disc-related pain type: discogenic back pain only Arthralgia, unspecified joint M25.50 Joint pain location: unspecified Cervical disc disease M50.90 Allergic rhinitis, unspecified seasonality, unspecified trigger J30.9 Allergic rhinitis trigger: unspecified Allergic rhinitis seasonality: unspecified Insomnia, unspecified type G47.00 Insomnia type: unspecified Smoker F17.200 Additional Codes PHQ-9 - 12593 - PHQ-9 Billing: Yes ([id number]) Assessment & Plan Assessment & Plan (1) Essential hypertension: Code(s): I10 - Essential (primary) hypertension Category: Medical Plan: Reinforced low-sodium diet - goal is systolic BP of at least 120 to 130 mm or less She was taking Amlodipine 10 mg QD mostly just in the winter time in the past primarily for her Raynaud's symptoms as this also helps control her blood pressure but she is now on Amlodipine 20 mg QD regularly due to the progression of her Raynaud's syndrome She is instructed to continue monitoring her blood pressure regularly (2) Raynaud's disease: Comment: Onset 09/2010 Code(s): I73.00 - Raynaud's syndrome without gangrene Category: Medical Qualifiers: Raynaud?s-associated gangrene presence: without gangrene Qualified Code(s): I73.00 - Raynaud's syndrome without gangrene Plan: Continue Amlodipine 20 mg QD She is also using Nitroglycerin ointment 2% Q 6 hours on her hands as needed for symptomatic relief Reinforced avoidance of extremes of temperature to minimize her symptoms; patient was able to quit smoking last year in September 2022 but admits that she is still smoking occasionally Follow up with rheumatology as scheduled (3) Pure hypercholesterolemia: Code(s): E78.00 - Pure hypercholesterolemia, unspecified Category: Medical Plan: Results of her labs done a few days ago reviewed and discussed with patient - her cholesterol levels have improved slightly from previous Reinforced low cholesterol diet Continue Rosuvastatin 10 mg QD Will recheck her labs and fasting lipids in 4 months for follow-up (4) Hypothyroidism: Code(s): E03.9 - Hypothyroidism, unspecified Category: Medical Qualifiers: Hypothyroidism type: acquired Qualified Code(s): E03.9 - Hypothyroidism, unspecified Plan: Her TFTs remain normal on her recent labs Continue Levothyroxine 100 mcg QD (5) Vitamin B12 deficiency: Code(s): E53.8 - Deficiency of other specified B group vitamins Category: Medical Plan: Continue Vitamin B12 tablets 500 mcg QD (6) Vitamin D deficiency: Code(s): E55.9 - Vitamin D deficiency, unspecified Category: Medical Plan: Continue OTC Vitamin-D3 capsules 1000 units QD (7) Lumbar degenerative disc disease: Code(s): M51.36 - Other intervertebral disc degeneration, lumbar region Category: Medical Qualifiers: Disc-related pain type: discogenic back pain only Qualified Code(s): M51.360 - Other intervertebral disc degeneration, lumbar region with discogenic back pain only Plan: Reinforced activity and weight lifting restrictions Repeat lumbar spine x-rays done back in October 2022 revealed (+) degenerative disc disease and spondylosis at L4-L5 and lower lumbar spine facet arthritis Continue Acetaminophen 325 mg 1-2 tablets Q 6 hours as needed for pain (8) Arthralgia: Code(s): M25.50 - Pain in unspecified joint Category: Medical Qualifiers: Joint pain location: unspecified Qualified Code(s): M25.50 - Pain in unspecified joint Plan: Involving multiple joints, including both hands X-rays of both hands done back in April 2024 came out normal - her hand pains are therefore likely due to her Raynaud's Follow up with rheumatology as scheduled (9) Cervical disc disease: Code(s): M50.90 - Cervical disc disorder, unspecified, unspecified cervical region Category: Medical Plan: Cervical spine x-rays done in April 2024 revealed (+) degenerative disc disease at C5-C6 with posterior facet joint arthropathy States that her neck pains have been manageable lately (10) Allergic rhinitis: Code(s): J30.9 - Allergic rhinitis, unspecified Category: Medical Qualifiers: Allergic rhinitis trigger: unspecified Allergic rhinitis seasonality: unspecified Qualified Code(s): J30.9 - Allergic rhinitis, unspecified Plan: Continue OTC Loratadine tablet 10 mg QD PRN (11) Insomnia: Code(s): G47.00 - Insomnia, unspecified Category: Medical Qualifiers: Insomnia type: unspecified Qualified Code(s): G47.00 - Insomnia, unspecified Plan: Sleep hygiene reinforced She was on Trazodone 50 mg 1 to 2 tablets daily at bedtime as needed previously but patient stopped taking this a few months ago Advised that she can try taking this again if she continues to struggle with sleeping at night and can just take this on an as-needed basis (12) Smoker: Code(s): F17.200 - Nicotine dependence, unspecified, uncomplicated Category: Social Hx Plan: Patient is counseled again on smoking cessation She was able to quit smoking in September 2022 but admits that she has been smoking on and off again since Rheumatology has suggested that she may be a candidate for the lung cancer screening program [place] [facility] [place] to her significant smoking history - she has been referred for lung cancer screening Have also discussed with patient that based on how her lungs sound on exam/auscultation today, she likely has COPD and can also consider referring her to pulmonary medicine in the future Plan Follow in 4 months Orders: Orders Thyroid Stimulating Hormone 4 Months E03.9 - Hypothyroidism, unspecified Comprehensive Barto. Panel Fast 4 Months E78.00 - Pure hypercholesterolemia, unspecified Free T4 (Free Thyroxine) 4 Months E03.9 - Hypothyroidism, unspecified Complete Blood Count Auto Diff 4 Months D64.9 - Anemia, unspecified Lipid Panel 4 Months E78.00 - Pure hypercholesterolemia, unspecified UA CC w/rflx Micro + Cult 4 Months R30.0 - Dysuria Vitamin D 25-OH Total 4 Months E55.9 - Vitamin D deficiency, unspecified
--- OUTSIDE RECORDS SUMMARY | 2024-09-23 20:26 | XMS_ITS | Clinical Summary ---
Author Organization [facility] Address [address] [place] [address] Care Team Providers Care Broomcorn Scraper Name Role Phone Unavailable Primary Care Provider [...]
== END 2024-09-23 18:14 | disposition home or self-care (01) ==
PROVIDERS: PCP Internal Medicine; Visit Provider Internal Medicine
DX: I10 Essential (primary) hypertension (principal); I73.00 Raynaud's syndrome without gangrene; E78.00 Pure hypercholesterolemia, unspecified; E03.9 Hypothyroidism, unspecified; E53.8 Deficiency of other specified B group vitamins; E55.9 Vitamin D deficiency, unspecified; M51.360 Other intervertebral disc degeneration, lumbar region with discogenic back pain only; M25.50 Pain in unspecified joint; M50.90 Cervical disc disorder, unspecified, unspecified cervical region; J30.9 Allergic rhinitis, unspecified; G47.00 Insomnia, unspecified; F17.200 Nicotine dependence, unspecified, uncomplicated

== ENCOUNTER → 2024-09-23 17:18 | Outpatient (BNVA) | payer OTHER, SELFPAY | PROVIDERS: PCP Internal Medicine; Visit Provider Internal Medicine | DX: I10 Essential (primary) hypertension (principal); I73.00 Raynaud's syndrome without gangrene; E78.00 Pure hypercholesterolemia, unspecified; E03.9 Hypothyroidism, unspecified; E53.8 Deficiency of other specified B group vitamins; E55.9 Vitamin D deficiency, unspecified; M51.360 Other intervertebral disc degeneration, lumbar region with discogenic back pain only; M25.50 Pain in unspecified joint; M50.90 Cervical disc disorder, unspecified, unspecified cervical region; J30.9 Allergic rhinitis, unspecified; G47.00 Insomnia, unspecified; F17.200 Nicotine dependence, unspecified, uncomplicated; Z71.6 Tobacco abuse counseling | CPT/HCPCS: 96127; 99212 ==

== ENCOUNTER 2025-02-21 10:28 | Outpatient (REF) | payer OTHER, SELFPAY ==
--- OUTSIDE RECORDS SUMMARY | 2025-02-21 10:30 | XMS_ITS | Clinical Summary ---
Author Organization [facility] [place] Address [address] [place] [address] Care Team Providers Care Project Management Director Name Role Phone Unavailable Primary Care Provider [...] 2) 2016 Colorectal Cancer Screening: Colonoscopy 08/17/2023 HIV Screening 08/17/2023 Hepatitis C Screening 08/17/2023 Social Influencers of Health Screening 08/17/2023 COVID-19 Vaccine (1 - 2023-2 5 season) 2024 Depression Screening 07/23/2024 Influenza Vaccine (#1) 2025 HIB Vaccines Aged Out No longer eligi [...] age to complete this topic Meningococcal B Vaccine Aged Out No l onger eligible based on patient's age to complete this topic RSV Immunization Patients Un arnav 20 months Aged Out No longer eligible b ased on patient's age to complete this topic Varicella Vaccines Aged Out No longer eligible based on patient's age to complete this topic
[2025-02-21 14:12] LABS: MANUAL DIFF FLAG NO
[2025-02-21 14:19] LABS: Hematocrit 45.8 % (37.0-47.0); Hemoglobin 16.0 g/dl (12.0-16.0); Imm Gran Abs Auto 0.02 X10*3/uL (0.00-0.03); Imm Gran Pct Auto 0.3 % (0.0-0.4); Lymphocytes Absolute Auto 0.9 X10*3/uL (1.2-4.9); Mean Corpuscular HGB Conc 34.9 g/dl (31.0-35.0); Mean Corpuscular Hemoglobin 33.3 pg (27.0-33.0); Mean Corpuscular Volume 95.2 fL (80.0-98.0); NRBC Abs Auto 0.000 X10*3/uL (0.0-0.012); NRBC Pct Auto 0.0 /100WBC (0.0-0.2); Platelet Count 320 X10*3/uL (160-400); Red Blood Count 4.81 X10*6/uL (4.20-5.50); White Blood Count 7.4 X10*3/uL (4.8-10.8)
[2025-02-21 15:02] LABS: Appearance Urine Clear; Glucose Urine UA Negative (Negative); PH 7.5 (5.0-9.0); Specific Gravity - Urine 1.010 (1.005-1.025); UMIC TRIGGER UACC YES
[2025-02-21 15:14] LABS: UACC Culture Trigger YES
[2025-02-21 15:40] LABS: Alanine Aminotransferase 33 U/L (0-31); Albumin Level 4.9 g/dL (3.5-5.0); Alkaline Phosphatase 94 U/L (39-117); Anion Gap 12 (12-20); Aspartate Amino Transferase 34 U/L (5-31); Blood Urea Nitrogen 8 mg/dL (9-16); Calcium 9.7 mg/dL (8.4-10.2); Carbon Dioxide 27 mmol/L (22-29); Chloride 105 mmol/L (96-108); Cholesterol 192 mg/dL (<200); Estimated Glomerular Filt Rate > 60; HDL Cholesterol 90 mg/dL (>40); Potassium 3.9 mmol/L (3.3-5.1); Sodium 140 mmol/L (135-145); Total Protein 8.2 g/dL (6.5-8.0); Triglycerides 62 mg/dL (<150)
[2025-02-21 15:56] LABS: Free T4 (Free Thyroxine) 1.12 ng/dL (0.71-1.85); Thyroid Stimulating Hormone 0.47 uIU/mL (0.32-4.0)
== END 2025-02-21 10:29 | disposition home or self-care (01) ==
LOC: HO.HMGCLDS 10:28
PROVIDERS: PCP Internal Medicine; Visit Provider Internal Medicine
DX: R30.0 Dysuria (principal); E78.00 Pure hypercholesterolemia, unspecified; D64.9 Anemia, unspecified; E55.9 Vitamin D deficiency, unspecified; E03.9 Hypothyroidism, unspecified
CPT/HCPCS: 36415; 80053; 80061; 81001; 81003; 82306; 84439; 84443; 85025; 87086

== ENCOUNTER 2025-02-23 17:03 | Outpatient (AMB) | payer OTHER, SELFPAY ==
[2025-02-23 17:10] VITALS: BP 110/56; PULSE 105; RESP 18; TEMP 36.3; BMI 22.9
--- NOTE | 2025-02-23 17:10 | MHC.PC.OV ---
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: No Accompanied by: Self / Same As Patient Allergies ampicillin (Ampicillin) Allergy (Mild, Verified 02/23/25 17:26) DIARRHEA atorvastatin Allergy (Mild, Verified 02/23/25 17:26) Nausea Codeine Sulfate Allergy (Unknown, Verified 02/23/25 17:26) unknown codeine (Codeine) Adverse Reaction (Mild, Verified 02/23/25 17:26) NAUSEA & VOMITING fluoxetine Adverse Reaction (Mild, Verified 02/23/25 17:) feeling unwell prednisone Adverse Reaction (Unknown, Verified 02/23/25 17:26) myalgia Penicillin V Potassium Allergy (Unknown, Uncoded 02/23/25 17:26) unknown Medication List - Last Reconciled 02/23/25 by Magen Bacon MD acetaminophen 325 mg PO QID PRN amlodipine 20 mg (2 x 10 mg) PO DAILY cholecalciferol (vitamin D3) 25 mcg PO DAILY 90 days cyanocobalamin (vitamin B-12) 500 mcg PO DAILY levothyroxine 100 mcg PO DAILY loratadine 10 mg PO DAILY PRN multivitamin 1 tab PO DAILY 90 days rosuvastatin 10 mg PO DAILY 90 days Tobacco use date assessed: 02/23/25 Dental Screening Dental Screen Date: 02/23/25 Did you have a dental visit in the last 12 months?: No Did you have a dental problem in the last 6 months where you did not have access to dental care?: No Was dental information given to patient?: No HPI 4 month f/u HPI Details Patient comes in today for her follow up visit States that she feels okay She denies any headaches or dizziness Denies any chest pains, no SOB No nausea/vomiting, no abdominal pain No change in bowel habits noted She had her follow up labs done a couple of days ago - to discuss her results [facility] Medical History Cervical disc disease Pure hypercholesterolemia Benign essential hypertension Left hand pain Smoker Anxiety Insomnia Allergic rhinitis Vitamin D deficiency Vitamin B12 deficiency Lumbar degenerative disc disease Hypothyroidism Hyperlipidemia Raynaud's disease Essential hypertension Surgical History History of left knee surgery History of cholecystectomy Family History Father No problems noted. Mother No problems noted. Sister Rheumatoid arthritis Sister Diabetes Brother No problems noted. Brother No problems noted. Brother No problems noted. 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 1. Little interest or pleasure in doing things: not at all 2. Feeling down, depressed, or hopeless: not at all 3. Trouble falling or staying asleep, or sleeping too much: several days 4. Feeling tired or having little energy: not at all 5. Poor appetite or overeating: not at all 6. Feeling bad about yourself - or that you are a failure or have let yourself or your family down: not at all 7. Trouble concentrating on things, such as reading the newspaper or watching television: not at all 8. Moving or speaking so slowly that other people could have noticed. Or the opposite - being so fidgety or restless that you have been moving around a lot more than usual: not at all 9. Thoughts that you would be better off or of hurting yourself in some way: not at all Total score: 1 Depression Screening Interpretation: Negative Depression Screening Done: Yes 22888 - PHQ-9 Billing: Yes Source: Developed by Drs. Gildardo Yeung, Francy Nuñez, Heath Patricio and colleagues, with an educational billy from [employer]. Thrive Questionnaire Date Thrive assessed: 02/23/25 I am a: Patient What is your living situation today?: I have a steady place to live Within the past 12 months, did the food you bought not last and you didn't have the money to get more?: I choose not to answer this question Within the past 12 months, did you worry whether your food would run out before you got money to buy more?: I choose not to answer this question Do you have trouble paying for medicines?: I choose not to answer this question Do you have trouble getting transportation to medical appointments?: No Do you have trouble paying your heating and electricity bill?: I choose not to answer this question Do you have trouble taking care of your child, family member or friend?: I choose not to answer this question Do you have trouble with day-to-day activities such as bathing, preparing meals, shopping, managing finances, etc.?: No Are you currently unemployed and looking for a job?: No Are you interested in more education?: No Please select the resources that you would like help with: None Currently or been in a relationship where the following occur: I choose not to answer THRIVE Score: 0 AUDIT C Alcohol Use Questionnaire (AUDIT-C) 1. How often do you have a drink containing alcohol?: Monthly or less 2. How many drinks containing alcohol do you have on a typical day when you are drinking?: 1 or 2 3. How often do you have six or more drinks on one occasion?: Never Total Score: 1 Score Reviewed/Action Taken: Yes THALIA-7 AMB Questionnaire THALIA-7 Date THALIA - 7 assessed: 02/23/25 Feeling nervous, anxious, or on edge: 0 = Not at all Not being able to stop or control worryin = Not at all Worrying too much about different things: 0 = Not at all Trouble relaxin = Several days Being so restless that it is hard to sit still: 0 = Not at all Becoming easily annoyed or irritable: 1 = Several days Feeling afraid as if something awful might happen: 0 = Not at all Total THALIA-7 score (0-4 normal; 5-9 mild; 10-14 moderate; 15-21 severe): 2 Source: Developed by Drs. Gildardo Yeung, Francy Nuñez, Heath Patricio and colleagues, with an educational billy from [employer]. Review of Systems Const Denies chills, Denies fatigue, Denies fever(s) and Denies headache(s) ENT Denies dysphagia, Denies dizziness, Denies otalgia, Denies headache(s), Reports neck pain, Denies odynophagia and Denies sore throat Card Denies chest pain, Denies palpitations and Denies dyspnea Resp Denies chest congestion, Reports cough (on and off, coughs up minimal whitish phlegm at times), Denies dyspnea and Denies wheezing GI Denies abdominal pain, Denies constipation, Denies dysphagia, Denies heartburn, Denies diarrhea, Denies nausea, Denies odynophagia and Denies vomiting Denies difficulty voiding, Denies nocturia, Denies dysuria and Denies urinary urgency Musc Reports back pain (over the lower back, on and off), Reports arthralgias (especially in her hands, worse when weather is cold) and Reports neck pain Skin/Breast Denies rash Neuro Denies dizziness and Denies headache(s) Endo Denies fatigue and Denies palpitations Aller/Immun Denies wheezing Physical exam (Primary Care) Vital Signs: Last Vital Signs Temp 97.3 F 02/23/25 17:10 Pulse 105 H 02/23/25 17:10 Resp 18 02/23/25 17:10 BP 110/56 L 02/23/25 17:10 Oxygen Delivery Method Room Air 02/23/25 17:10 BMI result Body Mass Index 22.9 Tobacco/Smoking Status: Tobacco use Status Tobacco use date assessed 02/23/25 02/23/25 17:19 Patient Tobacco Use Status Current everyday Tobacco 02/23/25 17:19 Tobacco use type Cigarette 02/23/25 17:19 e-Cigarette/Vaping Use Never Used 02/23/25 17:19 PHQ-9: PHQ-9 Score PHQ-9: Total score 1 02/23/25 17:19 Depression Screening Interpretation: Negative Thrive Assessment: Date of Thrive Assessment Date Thrive assessed 02/23/25 02/23/25 17:19 Currently or been in a relationship where the following occur: I choose not to answer Const General: no acute distress and alert HENMT Ears: TM's normal bilaterally and EAC's normal Throat: Yes posterior oropharynx normal and Yes tonsils normal (no TP congestion noted) Neck Neck: Yes supple and No lymphadenopathy Thyroid: Thyroid normal Resp Auscultation: no crackles, no rales, rhonchi (occasional) throughout, no wheezes and diminished lung sounds (slightly) bilateral Cardio Rate: regular rate Rhythm: regular rhythm Heart sounds: no murmurs GI Palpation (GI): Soft to palpation and nontender Auscultation: normal bowel sounds General: Yes no CVA tenderness Back/Spine/Pelvis Back: no CVA tenderness Cervical Spine: Cervical spine tenderness Thoracic/Lumbar Spine: lumbar spinal tenderness Skin Rashes: no rashes Extrem General: Yes no clubbing, cyanosis or edema Right upper extremity: Extremity exam: right hand Details: tenderness and no swelling Left upper extremity: hand Details: tenderness and no swelling Results Reviewed Results Reviewed: Laboratory Tests 02/21/25 10:46 WBC 7.4 Hgb 16.0 Hct 45.8 Plt Count 320 Sodium 140 Potassium 3.9 Creatinine 0.73 Estimated GFR > 60 Fasting Glucose 101 H Calcium 9.7 AST 34 H ALT 33 H Triglycerides 62 Cholesterol 192 LDL Cholesterol, Calc 90 HDL Cholesterol 90 25-OH Vitamin D Total 44.2 TSH 0.47 Free T4 1.12 Urine pH 7.5 Ur Specific [place] 1.010 Urine Protein Trace Urine Glucose (UA) Negative Urine Blood Negative Urine Nitrite Negative Ur Leukocyte Esterase Moderate (2+) H Coding Level of Care Code Est Pt Level 4 (57960) Diagnoses Essential hypertension I10 Raynaud's disease without gangrene I73.00 Raynaud?s-associated gangrene presence: without gangrene Pure hypercholesterolemia E78.00 Acquired hypothyroidism E03.9 Hypothyroidism type: acquired Vitamin B12 deficiency E53.8 Vitamin D deficiency E55.9 Degeneration of intervertebral disc of lumbar region with discogenic back pain M51.360 Disc-related pain type: discogenic back pain only Arthralgia, unspecified joint M25.50 Joint pain location: unspecified Cervical disc disease M50.90 Allergic rhinitis, unspecified seasonality, unspecified trigger J30.9 Allergic rhinitis trigger: unspecified Allergic rhinitis seasonality: unspecified Insomnia, unspecified type G47.00 Insomnia type: unspecified Smoker F17.200 Additional Codes PHQ-9 - 97814 - PHQ-9 Billing: Yes ([id number]) Assessment & Plan Assessment & Plan (1) Essential hypertension: Code(s): I10 - Essential (primary) hypertension Category: Medical Plan: Reinforced low-sodium diet - goal is systolic BP of at least 120 to 130 mm or less She was taking Amlodipine 10 mg QD mostly just in the winter time in the past primarily for her Raynaud's symptoms as this also helps control her blood pressure but she is now on Amlodipine 20 mg QD regularly due to the progression of her Raynaud's syndrome She is instructed to continue monitoring her blood pressure regularly (2) Raynaud's disease: Comment: Onset 09/2010 Code(s): I73.00 - Raynaud's syndrome without gangrene Category: Medical Qualifiers: Raynaud?s-associated gangrene presence: without gangrene Qualified Code(s): I73.00 - Raynaud's syndrome without gangrene Plan: Continue Amlodipine 20 mg QD She is also using Nitroglycerin ointment 2% Q 6 hours on her hands as needed for symptomatic relief Reinforced avoidance of extremes of temperature to minimize her symptoms; patient was able to quit smoking in September 2022 but admits that she is now still smoking occasionally Follow up with rheumatology as scheduled (3) Pure hypercholesterolemia: Code(s): E78.00 - Pure hypercholesterolemia, unspecified Category: Medical Plan: Results of her labs done a couple of days ago reviewed and discussed with patient - her cholesterol levels have increased slightly from previous but this involve both her LDL and HDL cholesterol levels Reinforced low cholesterol diet Continue Rosuvastatin 10 mg QD Will recheck her labs and fasting lipids in 4 months for follow-up (4) Hypothyroidism: Code(s): E03.9 - Hypothyroidism, unspecified Category: Medical Qualifiers: Hypothyroidism type: acquired Qualified Code(s): E03.9 - Hypothyroidism, unspecified Plan: Her TFTs remain normal on her recent labs Continue Levothyroxine 100 mcg QD (5) Vitamin B12 deficiency: Code(s): E53.8 - Deficiency of other specified B group vitamins Category: Medical Plan: Continue Vitamin B12 tablets 500 mcg QD (6) Vitamin D deficiency: Code(s): E55.9 - Vitamin D deficiency, unspecified Category: Medical Plan: Continue OTC Vitamin-D3 capsules 1000 units QD (7) Lumbar degenerative disc disease: Code(s): M51.36 - Other intervertebral disc degeneration, lumbar region Category: Medical Qualifiers: Disc-related pain type: discogenic back pain only Qualified Code(s): M51.360 - Other intervertebral disc degeneration, lumbar region with discogenic back pain only Plan: Reinforced activity and weight lifting restrictions Repeat lumbar spine x-rays done back in October 2022 revealed (+) degenerative disc disease and spondylosis at L4-L5 and lower lumbar spine facet arthritis Continue Acetaminophen 325 mg 1-2 tablets Q 6 hours as needed for pain (8) Arthralgia: Code(s): M25.50 - Pain in unspecified joint Category: Medical Qualifiers: Joint pain location: unspecified Qualified Code(s): M25.50 - Pain in unspecified joint Plan: Involving multiple joints, including both hands X-rays of both hands done back in April 2024 came out normal - her hand pains are therefore likely due to her Raynaud's Follow up with rheumatology as scheduled (9) Cervical disc disease: Code(s): M50.90 - Cervical disc disorder, unspecified, unspecified cervical region Category: Medical Plan: Cervical spine x-rays done in April 2024 revealed (+) degenerative disc disease at C5-C6 with posterior facet joint arthropathy States that her neck pains have been manageable lately (10) Allergic rhinitis: Code(s): J30.9 - Allergic rhinitis, unspecified Category: Medical Qualifiers: Allergic rhinitis trigger: unspecified Allergic rhinitis seasonality: unspecified Qualified Code(s): J30.9 - Allergic rhinitis, unspecified Plan: Continue OTC Loratadine tablet 10 mg QD PRN (11) Insomnia: Code(s): G47.00 - Insomnia, unspecified Category: Medical Qualifiers: Insomnia type: unspecified Qualified Code(s): G47.00 - Insomnia, unspecified Plan: Sleep hygiene reinforced She was on Trazodone 50 mg 1 to 2 tablets daily at bedtime as needed previously but patient stopped taking this a few months ago Advised that she can try taking this again if she continues to struggle with sleeping at night and can just take this on an as-needed basis (12) Smoker: Code(s): F17.200 - Nicotine dependence, unspecified, uncomplicated Category: Social Hx Plan: Patient is counseled again on complete smoking cessation She was able to quit smoking in September 2022 but admits that she has been smoking on and off again since Rheumatology has suggested that she may be a candidate for the lung cancer screening program here at [facility] due to her significant smoking history - she has been referred for lung cancer screening Have also discussed with patient that based on how her lungs sound on exam/auscultation today, she likely has COPD and can also consider referring her to pulmonary medicine in the future, especially if her respiratory symptoms progress Plan Follow in 4 months Orders: Orders Complete Blood Count Auto Diff 4 Months D64.9 - Anemia, unspecified Comprehensive [place]. Panel Fast 4 Months E78.00 - Pure hypercholesterolemia, unspecified Lipid Panel 4 Months E78.00 - Pure hypercholesterolemia, unspecified Vitamin B12 and Folate 4 Months E53.8 - Deficiency of other specified B group vitamins C Reactive Protein 4 Months M25.50 - Pain in unspecified joint Erythrocyte Sedimentation Rate 4 Months M25.50 - Pain in unspecified joint UA CC w/rflx Micro + Cult 4 Months R30.0 - Dysuria TSH reflex Free T4 4 Months E78.00 - Pure hypercholesterolemia, unspecified, M25.50 - Pain in unspecified joint Vitamin D 25-OH Total 4 Months E55.9 - Vitamin D deficiency, unspecified
== END 2025-02-23 17:35 | disposition home or self-care (01) ==
LOC: HO.HMCH 17:04
PROVIDERS: PCP Internal Medicine; Visit Provider Internal Medicine
DX: I10 Essential (primary) hypertension (principal); I73.00 Raynaud's syndrome without gangrene; E78.00 Pure hypercholesterolemia, unspecified; E03.9 Hypothyroidism, unspecified; E53.8 Deficiency of other specified B group vitamins; E55.9 Vitamin D deficiency, unspecified; M51.360 Other intervertebral disc degeneration, lumbar region with discogenic back pain only; M25.50 Pain in unspecified joint; M50.90 Cervical disc disorder, unspecified, unspecified cervical region; J30.9 Allergic rhinitis, unspecified; G47.00 Insomnia, unspecified; F17.200 Nicotine dependence, unspecified, uncomplicated

== ENCOUNTER → 2025-02-23 17:03 | Outpatient (BNVA) | payer OTHER, SELFPAY | PROVIDERS: PCP Internal Medicine; Visit Provider Internal Medicine | DX: I10 Essential (primary) hypertension (principal); I73.00 Raynaud's syndrome without gangrene; E78.00 Pure hypercholesterolemia, unspecified; E03.9 Hypothyroidism, unspecified; E53.8 Deficiency of other specified B group vitamins; E55.9 Vitamin D deficiency, unspecified; M51.360 Other intervertebral disc degeneration, lumbar region with discogenic back pain only; M25.50 Pain in unspecified joint; M50.90 Cervical disc disorder, unspecified, unspecified cervical region; J30.9 Allergic rhinitis, unspecified; G47.00 Insomnia, unspecified; F17.210 Nicotine dependence, cigarettes, uncomplicated; Z79.899 Other long term (current) drug therapy; Z13.31 Encounter for screening for depression; Z13.39 Encounter for screening examination for other mental health and behavioral disorders | CPT/HCPCS: 96127; 99212 ==

== ENCOUNTER 2025-07-11 10:21 | Outpatient (REF) | payer OTHER, SELFPAY ==
--- OUTSIDE RECORDS SUMMARY | 2025-07-11 10:23 | XMS_ITS | Clinical Summary ---
Author Organization [facility] it[facility] Address [address] [place] [address] Care Team Providers Care Medicaid Biller Name Role Phone Unavailable Primary Care Provider [...] Last Done Comments Breast Cancer Screening 1966 Colorectal Cancer Screening: Colonoscopy 1966 DTaP,Tdap,and Td Vaccines (1 - Tdap) 1985 Hepatitis B Vaccines (1 of 3 - 19+ 3-dose series) 1985 Cervical Cancer Screening: P ap Smear 12/18/1987 Pneumococcal Vaccine: 50+ Ye ars (1 of 1 - PCV) 2016 Zoster Vaccines (1 of 2) 2016 HIV Screening 08/17/2023 Hepatitis C Screening 08/17/2023 Social Influencers of Health Screening 08/17/2023 Depression Screening 07/23/2024 COVID-19 Vaccine (1 - 2024-2 6 season) 2025 Influenza Vaccine (#1) 2025 RSV Immunization Adult Patie nts (1 - 1-dose 75+ series) 2041 HIB Vaccines Aged Out No longer eligi [...]
[2025-07-11 11:49] LABS: MANUAL DIFF FLAG NO
[2025-07-11 11:50] LABS: Hematocrit 44.7 % (37.0-47.0); Hemoglobin 15.6 g/dl (12.0-16.0); Imm Gran Abs Auto 0.02 X10*3/uL (0.00-0.03); Imm Gran Pct Auto 0.2 % (0.0-0.4); Lymphocytes Absolute Auto 1.1 X10*3/uL (1.2-4.9); Mean Corpuscular HGB Conc 34.9 g/dl (31.0-35.0); Mean Corpuscular Hemoglobin 33.1 pg (27.0-33.0); Mean Corpuscular Volume 94.9 fL (80.0-98.0); NRBC Abs Auto 0.000 X10*3/uL (0.0-0.012); NRBC Pct Auto 0.0 /100WBC (0.0-0.2); Platelet Count 358 X10*3/uL (160-400); Red Blood Count 4.71 X10*6/uL (4.20-5.50); White Blood Count 8.6 X10*3/uL (4.8-10.8)
[2025-07-11 12:30] LABS: Alanine Aminotransferase 26 U/L (0-31); Albumin Level 4.7 g/dL (3.5-5.0); Alkaline Phosphatase 95 U/L (39-117); Anion Gap 15 (12-20); Aspartate Amino Transferase 28 U/L (5-31); Blood Urea Nitrogen 11 mg/dL (9-16); Calcium 9.7 mg/dL (8.4-10.2); Carbon Dioxide 27 mmol/L (22-29); Chloride 104 mmol/L (96-108); Cholesterol 191 mg/dL (<200); Estimated Glomerular Filt Rate > 60; HDL Cholesterol 83 mg/dL (>40); Potassium 3.8 mmol/L (3.3-5.1); Sodium 142 mmol/L (135-145); Total Protein 7.7 g/dL (6.5-8.0); Triglycerides 72 mg/dL (<150)
[2025-07-11 13:01] LABS: Folate 4.7 ng/mL (> or = 4.0); Vitamin B12 975 pg/mL (200-900)
[2025-07-11 13:53] LABS: Appearance Urine Cloudy; Glucose Urine UA Negative (Negative); PH 6.5 (5.0-9.0); Specific Gravity - Urine 1.010 (1.005-1.025); UMIC TRIGGER UACC YES
[2025-07-11 13:58] LABS: UACC Culture Trigger YES
== END 2025-07-11 10:22 | disposition home or self-care (01) ==
LOC: HO.HMGCLDS 10:21
PROVIDERS: PCP Internal Medicine; Visit Provider Internal Medicine
DX: E53.8 Deficiency of other specified B group vitamins (principal); D64.9 Anemia, unspecified; E78.00 Pure hypercholesterolemia, unspecified; M25.50 Pain in unspecified joint; E55.9 Vitamin D deficiency, unspecified; R30.0 Dysuria
CPT/HCPCS: 36415; 80053; 80061; 81001; 82306; 82607; 82746; 84443; 85025; 85652; 86140; 87086

== ENCOUNTER 2025-07-13 17:03 | Outpatient (AMB) | payer OTHER, SELFPAY ==
--- NOTE | 2025-07-13 17:15 | A.OFFPC_ITS ---
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 Accompanied by: Self / Same As Patient Allergies ampicillin (Ampicillin) Allergy (Mild, Verified 07/13/25 17:34) DIARRHEA atorvastatin Allergy (Mild, Verified 07/13/25 17:34) Nausea Codeine Sulfate Allergy (Unknown, Verified 07/13/25 17:34) unknown codeine (Codeine) Adverse Reaction (Mild, Verified 07/13/25 17:34) NAUSEA & VOMITING fluoxetine Adverse Reaction (Mild, Verified 07/13/25 17:34) feeling unwell prednisone Adverse Reaction (Unknown, Verified 07/13/25 17:34) myalgia Penicillin V Potassium Allergy (Unknown, Uncoded 07/13/25 17:34) unknown Medication List - Last Reconciled 07/13/25 by Magen Bacon MD acetaminophen 325 mg PO QID PRN amlodipine 20 mg (2 x 10 mg) PO DAILY cholecalciferol (vitamin D3) 25 mcg PO DAILY 90 days cyanocobalamin (vitamin B-12) 500 mcg PO DAILY levothyroxine 100 mcg PO DAILY loratadine 10 mg PO DAILY PRN multivitamin 1 tab PO DAILY 90 days rosuvastatin 10 mg PO DAILY 90 days Tobacco use date assessed: 02/23/25 Dental Screening Dental Screen Date: 02/23/25 HPI 4 month f/u HPI Details Patient is a 59 year old female presenting for a follow-up visit and to review her lab results. Her medical history includes hypertension, hyperlipidemia, renal disease, hypothyroidism, vitamin B12 deficiency, vitamin D deficiency, and cervical degenerative disc disease. She is also a smoker. She recently experienced an episode of fatigue over the weekend, which she attributes to not sleeping well. The patient's poor sleep was related to worrying about her blood pressure and stress from her daughter being in a minor car accident. She reported feeling much better the following day and notes that she currently feels okay She denies any headaches or dizziness Denies any chest pains, no SOB No nausea/vomiting, no abdominal pain No change in bowel habits noted She had her follow up labs done a couple of days ago - to discuss her results PFSH Medical History Cervical disc disease Pure hypercholesterolemia Benign essential hypertension Left hand pain Smoker Anxiety Insomnia Allergic rhinitis Vitamin D deficiency Vitamin B12 deficiency Lumbar degenerative disc disease Hypothyroidism Hyperlipidemia Raynaud's disease Essential hypertension Surgical History History of left knee surgery History of cholecystectomy Family History Father No problems noted. Mother No problems noted. Sister Rheumatoid arthritis Sister Diabetes Brother No problems noted. Brother No problems noted. Brother No problems noted. 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 Cognitive needs: No Hearing needs: No Vision needs: Yes Questionnaire Thrive Questionnaire Date Thrive assessed: 02/23/25 I am a: Patient What is your living situation today?: I have a steady place to live Within the past 12 months, did the food you bought not last and you didn't have the money to get more?: I choose not to answer this question Within the past 12 months, did you worry whether your food would run out before you got money to buy more?: I choose not to answer this question Do you have trouble paying for medicines?: I choose not to answer this question Do you have trouble getting transportation to medical appointments?: No Do you have trouble paying your heating and electricity bill?: I choose not to answer this question Do you have trouble taking care of your child, family member or friend?: I choose not to answer this question Do you have trouble with day-to-day activities such as bathing, preparing meals, shopping, managing finances, etc.?: No Are you currently unemployed and looking for a job?: No Are you interested in more education?: No Please select the resources that you would like help with: None Currently or been in a relationship where the following occur: I choose not to answer THRIVE Score: 0 THALIA-7 AMB Questionnaire THALIA-7 Date THALIA - 7 assessed: 02/23/25 Source: Developed by Drs. Gildardo Yeung, Francy Nuñez, Heath Patricio and colleagues, with an educational billy from [employer]. Review of Systems Const Denies chills, Denies fatigue, Denies fever(s) and Denies headache(s) ENT Denies dysphagia, Denies dizziness, Denies otalgia, Denies headache(s), Reports neck pain, Denies odynophagia and Denies sore throat Card Denies chest pain, Denies palpitations and Denies dyspnea Resp Denies chest congestion, Reports cough (on and off, coughs up minimal whitish phlegm at times), Denies dyspnea and Denies wheezing GI Denies abdominal pain, Denies constipation, Denies dysphagia, Denies heartburn, Denies diarrhea, Denies nausea, Denies odynophagia and Denies vomiting Denies difficulty voiding, Denies nocturia, Denies dysuria and Denies urinary urgency Musc Reports back pain (over the lower back, on and off), Reports arthralgias (especially in her hands, worse when weather is cold) and Reports neck pain Skin/Breast Denies rash Neuro Denies dizziness and Denies headache(s) Psych Reports as per HPI and Reports anxiety Endo Denies fatigue and Denies palpitations Aller/Immun Denies wheezing Physical exam (Primary Care) Vital Signs: Last Vital Signs Temp 98.1 F 07/13/25 17:16 Pulse 114 H 07/13/25 17:16 Resp 16 07/13/25 17:16 BP 124/58 L 07/13/25 17:16 Pulse Ox 93 07/13/25 17:16 Oxygen Delivery Method Room Air 07/13/25 17:16 BMI result Body Mass Index 23.0 Tobacco/Smoking Status: Tobacco use Status Tobacco use date assessed 02/23/25 07/13/25 17:19 Patient Tobacco Use Status Current everyday Tobacco 07/13/25 17:19 Tobacco use type Cigarette 07/13/25 17:19 e-Cigarette/Vaping Use Never Used 07/13/25 17:19 Thrive Assessment: Date of Thrive Assessment Date Thrive assessed 02/23/25 07/13/25 17:19 Currently or been in a relationship where the following occur: I choose not to answer Const General: no acute distress and alert HENMT Ears: TM's normal bilaterally and EAC's normal Throat: Yes posterior oropharynx normal and Yes tonsils normal (no TP congestion noted) Neck Neck: Yes supple and No lymphadenopathy Thyroid: Thyroid normal Resp Auscultation: no crackles, no rales, rhonchi (occasional) throughout, no wheezes and diminished lung sounds (slightly) bilateral Cardio Rate: regular rate Rhythm: regular rhythm Heart sounds: no murmurs GI Palpation (GI): Soft to palpation and nontender Auscultation: normal bowel sounds General: Yes no CVA tenderness Back/Spine/Pelvis Back: no CVA tenderness Cervical Spine: Cervical spine tenderness Thoracic/Lumbar Spine: lumbar spinal tenderness Skin Rashes: no rashes Extrem General: Yes no clubbing, cyanosis or edema Right upper extremity: Extremity exam: right hand Details: tenderness and no swelling Left upper extremity: hand Details: tenderness and no swelling Results Reviewed Results Reviewed: Laboratory Tests 07/11/25 10:27 WBC 8.6 Hgb 15.6 Hct 44.7 Plt Count 358 ESR 19 Sodium 142 Potassium 3.8 Creatinine 0.71 Estimated GFR > 60 Fasting Glucose 86 Calcium 9.7 AST 28 ALT 26 C-Reactive Protein 0.42 Triglycerides 72 Cholesterol 191 LDL Cholesterol, Calc 94 HDL Cholesterol 83 Vitamin B12 975 H 25-OH Vitamin D Total 36.8 TSH 0.63 Ur Specific [place] 1.010 Urine Protein Negative Urine Glucose (UA) Negative Urine Blood Negative Urine Nitrite Negative Ur Leukocyte Esterase Moderate (2+) H Coding Level of Care Code Est Pt Level 4 (06648) Diagnoses Essential hypertension I10 Raynaud's disease without gangrene I73.00 Raynaud?s-associated gangrene presence: without gangrene Pure hypercholesterolemia E78.00 Acquired hypothyroidism E03.9 Hypothyroidism type: acquired Vitamin B12 deficiency E53.8 Vitamin D deficiency E55.9 Degeneration of intervertebral disc of lumbar region with discogenic back pain M51.360 Disc-related pain type: discogenic back pain only Arthralgia, unspecified joint M25.50 Joint pain location: unspecified Cervical disc disease M50.90 Allergic rhinitis, unspecified seasonality, unspecified trigger J30.9 Allergic rhinitis seasonality: unspecified Allergic rhinitis trigger: unspecified Insomnia, unspecified type G47.00 Insomnia type: unspecified Smoker F17.200 Assessment & Plan Assessment & Plan (1) Essential hypertension: Code(s): I10 - Essential (primary) hypertension Category: Medical Plan: Reinforced low-sodium diet - goal is systolic BP of at least 120 to 130 mm or less She was taking Amlodipine 10 mg QD mostly just in the winter time in the past primarily for her Raynaud's symptoms as this also helps control her blood pressure but she is now on Amlodipine 20 mg QD regularly due to the progression of her Raynaud's syndrome She is instructed to continue monitoring her blood pressure regularly (2) Raynaud's disease: Comment: Onset 09/2010 Code(s): I73.00 - Raynaud's syndrome without gangrene Category: Medical Qualifiers: Raynaud?s-associated gangrene presence: without gangrene Qualified Code(s): I73.00 - Raynaud's syndrome without gangrene Plan: Continue Amlodipine 20 mg QD She is also using Nitroglycerin ointment 2% Q 6 hours on her hands as needed for symptomatic relief Reinforced avoidance of extremes of temperature to minimize her symptoms; renetta nowak was able to quit smoking in September 2022 but admits that she is now still smoking occasionally Follow up with rheumatology as scheduled (3) Pure hypercholesterolemia: Code(s): E78.00 - Pure hypercholesterolemia, unspecified Category: Medical Plan: Results of her labs done a couple of days ago reviewed and discussed with patient Reinforced low cholesterol diet Continue Rosuvastatin 10 mg QD Will recheck her labs and fasting lipids in 4 months for follow-up (4) Hypothyroidism: Code(s): E03.9 - Hypothyroidism, unspecified Category: Medical Qualifiers: Hypothyroidism type: acquired Qualified Code(s): E03.9 - Hypothyroidism, unspecified Plan: Her TFTs remained normal on her recent labs Continue Levothyroxine 100 mcg QD (5) Vitamin B12 deficiency: Code(s): E53.8 - Deficiency of other specified B group vitamins Category: Medical Plan: Continue Vitamin B12 tablets 500 mcg QD (6) Vitamin D deficiency: Code(s): E55.9 - Vitamin D deficiency, unspecified Category: Medical Plan: Continue OTC Vitamin-D3 capsules 1000 units QD (7) Lumbar degenerative disc disease: Code(s): M51.36 - Other intervertebral disc degeneration, lumbar region Category: Medical Qualifiers: Disc-related pain type: discogenic back pain only Qualified Code(s): M51.360 - Other intervertebral disc degeneration, lumbar region with discogenic back pain only Plan: Reinforced activity and weight lifting restrictions Repeat lumbar spine x-rays done back in October 2022 revealed (+) degenerative disc disease and spondylosis at L4-L5 and lower lumbar spine facet arthritis Continue Acetaminophen 325 mg 1-2 tablets Q 6 hours as needed for pain (8) Arthralgia: Code(s): M25.50 - Pain in unspecified joint Category: Medical Qualifiers: Joint pain location: unspecified Qualified Code(s): M25.50 - Pain in unspecified joint Plan: Involving multiple joints, including both hands X-rays of both hands done back in April 2024 came out normal - her hand pains are therefore likely due to her Raynaud's Follow up with rheumatology as scheduled (9) Cervical disc disease: Code(s): M50.90 - Cervical disc disorder, unspecified, unspecified cervical region Category: Medical Plan: Cervical spine x-rays done in April 2024 revealed (+) degenerative disc disease at C5-C6 with posterior facet joint arthropathy States that her neck pains have been manageable lately (10) Allergic rhinitis: Code(s): J30.9 - Allergic rhinitis, unspecified Category: Medical Qualifiers: Allergic rhinitis seasonality: unspecified Allergic rhinitis trigger: unspecified Qualified Code(s): J30.9 - Allergic rhinitis, unspecified Plan: Continue OTC Loratadine tablet 10 mg QD PRN (11) Insomnia: Code(s): G47.00 - Insomnia, unspecified Category: Medical Qualifiers: Insomnia type: unspecified Qualified Code(s): G47.00 - Insomnia, unspecified Plan: Sleep hygiene reinforced She was on Trazodone 50 mg 1 to 2 tablets daily at bedtime as needed previously but patient stopped taking this a few months ago Advised that she can try taking this again if she continues to struggle with sleeping at night and can just take this on an as-needed basis (12) Smoker: Code(s): F17.200 - Nicotine dependence, unspecified, uncomplicated Category: Social Hx Plan: Patient is counseled again on complete smoking cessation She was able to quit smoking in September 2022 but admits that she has been smoking on and off again since Rheumatology has suggested that she may be a candidate for the lung cancer screening program here at [facility] due to her significant smoking history - she has been referred for lung cancer screening Have also discussed with patient that based on how her lungs sound on exam/auscultation today, she likely has COPD and can also consider referring her to pulmonary medicine in the future, especially if her respiratory symptoms progress Plan Follow in 4 months Orders: Orders Complete Blood Count Auto Diff 4 Months D64.9 - Anemia, unspecified Comprehensive [place]. Panel Fast 4 Months E78.00 - Pure hypercholesterolemia, unspecified Lipid Panel 4 Months E78.00 - Pure hypercholesterolemia, unspecified Free T4 (Free Thyroxine) 4 Months E03.9 - Hypothyroidism, unspecified Thyroid Stimulating Hormone 4 Months E03.9 - Hypothyroidism, unspecified UA CC w/rflx Micro + Cult 4 Months R30.0 - Dysuria Vitamin D 25-OH Total 4 Months E55.9 - Vitamin D deficiency, unspecified
[2025-07-13 17:16] VITALS: BP 124/58; PULSE 114; RESP 16; TEMP 36.7; O2SAT 93; BMI 23.0
--- OUTSIDE RECORDS SUMMARY | 2025-07-13 18:58 | XMS_ITS | Clinical Summary ---
Author Organization [facility] ity Address [address] [place] [address] Care Team Providers Care Rn Social Services Name Role Phone Unavailable Primary Care Provider [...]
== END 2025-07-13 17:49 | disposition home or self-care (01) ==
LOC: HO.HMCH 17:03
PROVIDERS: PCP Internal Medicine; Visit Provider Internal Medicine
DX: I10 Essential (primary) hypertension (principal); I73.00 Raynaud's syndrome without gangrene; E78.00 Pure hypercholesterolemia, unspecified; E03.9 Hypothyroidism, unspecified; E53.8 Deficiency of other specified B group vitamins; E55.9 Vitamin D deficiency, unspecified; M51.360 Other intervertebral disc degeneration, lumbar region with discogenic back pain only; M25.50 Pain in unspecified joint; M50.90 Cervical disc disorder, unspecified, unspecified cervical region; J30.9 Allergic rhinitis, unspecified; G47.00 Insomnia, unspecified; F17.200 Nicotine dependence, unspecified, uncomplicated

== ENCOUNTER → 2025-07-13 17:03 | Outpatient (BNVA) | payer OTHER, SELFPAY | PROVIDERS: PCP Internal Medicine; Visit Provider Internal Medicine | DX: Z71.2 Person consulting for explanation of examination or test findings (principal); I10 Essential (primary) hypertension; E78.00 Pure hypercholesterolemia, unspecified; I73.00 Raynaud's syndrome without gangrene; E03.9 Hypothyroidism, unspecified; M51.360 Other intervertebral disc degeneration, lumbar region with discogenic back pain only; M25.50 Pain in unspecified joint; J30.9 Allergic rhinitis, unspecified; G47.00 Insomnia, unspecified; F17.200 Nicotine dependence, unspecified, uncomplicated; E53.8 Deficiency of other specified B group vitamins; E55.9 Vitamin D deficiency, unspecified | CPT/HCPCS: 99212 ==